=== PATIENT | female | born 1940 | race Two or more races ===

== ENCOUNTER 2020-06-07 12:47 | Inpatient (IN) | payer OTHER ==
[~2020-06-07] VITALS: Ht 162.6 cm; Wt 83.9 kg
[~2020-06-07 12:47] MED LIST: dexAMETHasone 10mg/ml Inj IV ONE
[2020-06-07] MEDS ORDERED: GLIPIZIDE5 MG ORAL (12:49)
[2020-06-07] MEDS ORDERED: AMLODIPINE BESYL5 MG ORAL (12:49)
[2020-06-07] MEDS ORDERED: ATORVASTATIN CA40 MG ORAL (12:49)
[2020-06-07] MEDS ORDERED: OMEPRAZOLE40 M1 ORAL (12:49)
[2020-06-07] MEDS ORDERED: STEGLATRO PO (12:49)
[2020-06-07] MEDS ORDERED: METFORMIN HCL500 M1 ORAL (12:49)
[2020-06-07] MEDS ORDERED: FOSAMAX70 MG ORAL (12:49)
[2020-06-07 12:50] VITALS: BP 141/75
[2020-06-07] MEDS ORDERED: LISINOPRIL20 MG ORAL (12:51)
[2020-06-07] MEDS ORDERED: dexAMETHasone 10mg/ml Inj IV ONE (12:51)
[2020-06-07] MEDS ORDERED: CLOTRIMAZOLE15 GM TOPIC (12:51)
[2020-06-07] MEDS ORDERED: VITAMIN D325 MC1 PO (12:51)
[2020-06-07] MEDS ORDERED: CALCIUM500 M2 PO (12:51)
--- NOTE | 2020-06-07 12:55 | Emergency Room Report ---
History of Present Illness General Chief Complaint: Dyspnea/Respdistress Source: Patient, EMS (Socorro Marroquin M.D.) Present Illness HPI Patient is a 79-year-old female past medical history of diabetes, hypertension and recent diagnosis of COVID-19 1 week ago who presents to the ER complaining of shortness of breath. Patient states that she has been sick for 11 days. She complains of generalized body aches and weakness. She complains of chest pain, cough and shortness of breath. She denies any abdominal pain. Patient denies any history of smoking. Patient was brought in by EMS from home. They state that her oxygen saturation was in the 50s when they arrived. They placed on a nonrebreather. (Socorro Marroquin M.D.) Allergies: Coded Allergies: No Known Allergies (Unverified , 06/07/20) COVID-19 Screening Contact w/high risk pt: No Experienced COVID-19 symptoms?: No COVID-19 Testing performed PUBLIC WELFARE DIRECTOR: No (Socorro Marroquin M.D.) Patient History Reviewed Nursing Documentation: PMH: Agreed; PSxH: Agreed (Socorro Marroquin M.D.) Nursing Documentation-PMH Past Medical History: No History, Except For Hx Hypertension: Yes Hx Diabetes: Yes (Socorro Marroquin M.D.) Review of Systems All Other Systems: negative except mentioned in HPI (Socorro Marroquin M.D.) Physical Exam Vital Signs Date Time Temp Pulse Resp B/P (MAP) Pulse Ox O2 Delivery O2 Flow Rate FiO2 06/07/20 12:35 98.8 89 20 135/66 (89) 97 Non-Rebreather 15.0 Sp02 EP Interpretation: reviewed, abnormal - Hypoxic General Appearance: alert, GCS 15, non-toxic, moderate distress Head: normocephalic, atraumatic Eyes: bilateral eye normal inspection, bilateral eye PERRL ENT: hearing grossly normal, normal pharynx, no angioedema, normal voice Neck: full range of motion, supple/symm/no masses Respiratory: respiratory distress, rhonchi, other - Tachypneic Cardiovascular #1: regular rate, rhythm Gastrointestinal: non tender, soft, no guarding, no rebound Rectal: deferred Musculoskeletal: normal range of motion 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 Due to a high probability of clinically significant, life threatening deterioration, the patient required my highest level of preparedness to intervene emergently and I personally spent this critical care time directly and personally managing the patient. This critical care time included obtaining a history; examining the patient; pulse oximetry; ordering and review of studies; arranging urgent treatment with development of a management plan; evaluation of patient's response to treatment; frequent reassessment; and, discussions with other providers.This critical care time was performed to assess and manage the high probability of imminent, life- threatening deterioration that could result in multi-organ failure. It was exclusive of separately billable procedures and treating other patients and teaching time. Please see MDM section and the rest of the note for further information on patient assessment and treatment. (Socorro Marroquin M.D.) Medical Decision Making Diagnostic Impression: Primary Impression: Acute respiratory disease due to COVID-19 virus Additional Impressions: Renal failure Hypocalcemia Hyperkalemia Pneumonia ER Course Patient presents with respiratory failure. Pt placed on bipap. Patient given decadron 10mg IV and nebulizer treatment. Pt given cefepime and azithromycin IV. Blood cultures have been drawn. Patient is COVID-19 positive. Patient is hypokalemic and hypocalcemic. Medications for hyperkalemia have been ordered which include sodium bicarbonate, insulin and dextrose, Lasix and Kayexalate. Patient already received albuterol with her inline nebulizer. Patient given 1 g of IV calcium gluconate. Due to patient's elevated D-dimer and acute renal insufficiency patient started on heparin prophylactically. Patient will be admitted for further treatment and evaluation. Labs Test 06/07/20 22:30 06/08/20 04:54 06/08/20 07:46 06/08/20 08:15 Arterial Blood pH 7.365 (7.350-7.450) 7.416 (7.350-7.450) Arterial Blood Partial Pressure CO2 32.8 mmHg (35.0-45.0) 32.8 mmHg (35.0-45.0) Arterial Blood Partial Pressure O2 88.2 mmHg (75.0-100.0) 71.8 mmHg (75.0-100.0) Arterial Blood HCO3 18.3 mmol/L (22.0-26.0) 20.6 mmol/L (22.0-26.0) Arterial Blood Oxygen Saturation 96.5 % (95-100) 94.6 % (95-100) Arterial Blood Base Excess -6.1 (-2-2) -3.2 (-2-2) Gunnar Test Positive Positive White Blood Count 8.0 K/UL (4.8-10.8) Red Blood Count 3.77 M/UL (4.20-5.40) Hemoglobin 11.1 G/DL (12.0-16.0) Hematocrit 32.3 % (37.0-47.0) Mean Corpuscular Volume 86 FL (80-99) Mean Corpuscular Hemoglobin 29.3 PG (27.0-31.0) Mean Corpuscular Hemoglobin Concent 34.3 G/DL (32.0-36.0) Red Cell Distribution Width 15.3 % (11.6-14.8) Platelet Count 355 K/UL (150-450) Mean Platelet Volume 5.3 FL (6.5-10.1) Neutrophils (%) (Auto) % (45.0-75.0) Lymphocytes (%) (Auto) % (20.0-45.0) Monocytes (%) (Auto) % (1.0-10.0) Eosinophils (%) (Auto) % (0.0-3.0) Basophils (%) (Auto) % (0.0-2.0) Differential Total Cells Counted 100 Neutrophils % (Manual) 89 % (45-75) Lymphocytes % (Manual) 7 % (20-45) Monocytes % (Manual) 4 % (1-10) Eosinophils % (Manual) 0 % (0-3) Basophils % (Manual) 0 % (0-2) Band Neutrophils 0 % (0-8) Platelet Estimate Adequate Platelet Morphology Normal Anisocytosis 1+ Sodium Level 133 MMOL/L (136-145) Potassium Level 5.0 MMOL/L (3.5-5.1) Chloride Level 101 MMOL/L (98-107) Carbon Dioxide Level 23 MMOL/L (21-32) Blood Urea Nitrogen 35 mg/dL (7-18) Creatinine 1.4 MG/DL (0.55-1.30) Estimat Glomerular Filtration Rate 36.3 mL/min (>60) Glucose Level 335 MG/DL (74-106) Hemoglobin A1c 8.1 % (4.3-6.0) Lactic Acid Level 1.10 mmol/L (0.4-2.0) Uric Acid 8.5 MG/DL (2.6-7.2) Calcium Level 7.2 MG/DL (8.5-10.1) Phosphorus Level 3.4 MG/DL (2.5-4.9) Magnesium Level 1.8 MG/DL (1.8-2.4) Total Bilirubin 0.3 MG/DL (0.2-1.0) Gamma Glutamyl Transpeptidase 52 U/L (5-85) Aspartate Amino Transf (AST/SGOT) 26 U/L (15-37) Alanine Aminotransferase (ALT/SGPT) 15 U/L (12-78) Alkaline Phosphatase 76 U/L (46-116) Lactate Dehydrogenase 343 U/L (81-234) C-Reactive Protein, Quantitative 25.0 mg/dL (0.00-0.90) Pro-B-Type Natriuretic Peptide 6761 pg/mL (0-125) Total Protein 6.4 G/DL (6.4-8.2) Albumin 1.8 G/DL (3.4-5.0) Globulin 4.6 g/dL Albumin/Globulin Ratio 0.4 (1.0-2.7) Triglycerides Level 161 MG/DL (30-150) Cholesterol Level 142 MG/DL (< 200) LDL Cholesterol 89 mg/dL (<100) HDL Cholesterol 19 MG/DL (40-60) Cholesterol/HDL Ratio 7.5 (3.3-4.4) Thyroid Stimulating Hormone (TSH) 0.332 uiU/mL (0.358-3.740) Activated Partial Thromboplast Time 69 SEC (23-33) Test 06/08/20 15:58 06/09/20 04:23 06/09/20 12:20 06/10/20 04:10 Arterial Blood pH 7.482 (7.350-7.450) Arterial Blood Partial Pressure CO2 25.3 mmHg (35.0-45.0) Arterial Blood Partial Pressure O2 74.8 mmHg (75.0-100.0) Arterial Blood HCO3 18.5 mmol/L (22.0-26.0) Arterial Blood Oxygen Saturation 95.4 % (95-100) Arterial Blood Base Excess -3.6 (-2-2) Gunnar Test Positive White Blood Count 12.6 K/UL (4.8-10.8) 12.8 K/UL (4.8-10.8) Red Blood Count 3.87 M/UL (4.20-5.40) 3.85 M/UL (4.20-5.40) Hemoglobin 11.6 G/DL (12.0-16.0) 11.3 G/DL (12.0-16.0) Hematocrit 34.6 % (37.0-47.0) 32.2 % (37.0-47.0) Mean Corpuscular Volume 89 FL (80-99) 84 FL (80-99) Mean Corpuscular Hemoglobin 30.0 PG (27.0-31.0) 29.3 PG (27.0-31.0) Mean Corpuscular Hemoglobin Concent 33.5 G/DL (32.0-36.0) 35.0 G/DL (32.0-36.0) Red Cell Distribution Width 14.9 % (11.6-14.8) 15.3 % (11.6-14.8) Platelet Count 485 K/UL (150-450) 524 K/UL (150-450) Mean Platelet Volume 4.8 FL (6.5-10.1) 4.8 FL (6.5-10.1) Neutrophils (%) (Auto) % (45.0-75.0) % (45.0-75.0) Lymphocytes (%) (Auto) % (20.0-45.0) % (20.0-45.0) Monocytes (%) (Auto) % (1.0-10.0) % (1.0-10.0) Eosinophils (%) (Auto) % (0.0-3.0) % (0.0-3.0) Basophils (%) (Auto) % (0.0-2.0) % (0.0-2.0) Differential Total Cells Counted 100 Neutrophils % (Manual) 87 % (45-75) Lymphocytes % (Manual) 6 % (20-45) Monocytes % (Manual) 7 % (1-10) Eosinophils % (Manual) 0 % (0-3) Basophils % (Manual) 0 % (0-2) Band Neutrophils 0 % (0-8) Platelet Estimate Adequate Platelet Morphology Normal Anisocytosis 1+ Activated Partial Thromboplast Time 56 SEC (23-33) 85 SEC (23-33) 85 SEC (23-33) Sodium Level 136 MMOL/L (136-145) 136 MMOL/L (136-145) Potassium Level 4.5 MMOL/L (3.5-5.1) 3.7 MMOL/L (3.5-5.1) Chloride Level 105 MMOL/L (98-107) 103 MMOL/L (98-107) Carbon Dioxide Level 22 MMOL/L (21-32) 22 MMOL/L (21-32) Anion Gap 10 mmol/L (5-15) Blood Urea Nitrogen 23 mg/dL (7-18) 21 mg/dL (7-18) Creatinine 0.9 MG/DL (0.55-1.30) 0.8 MG/DL (0.55-1.30) Estimat Glomerular Filtration Rate > 60 mL/min (>60) > 60 mL/min (>60) Glucose Level 299 MG/DL (74-106) 235 MG/DL (74-106) Calcium Level 7.3 MG/DL (8.5-10.1) 7.1 MG/DL (8.5-10.1) Total Bilirubin 0.3 MG/DL (0.2-1.0) 0.3 MG/DL (0.2-1.0) Aspartate Amino Transf (AST/SGOT) 28 U/L (15-37) 26 U/L (15-37) Alanine Aminotransferase (ALT/SGPT) 20 U/L (12-78) 27 U/L (12-78) Alkaline Phosphatase 75 U/L (46-116) 79 U/L (46-116) Total Protein 6.6 G/DL (6.4-8.2) 6.5 G/DL (6.4-8.2) Albumin 1.8 G/DL (3.4-5.0) 1.9 G/DL (3.4-5.0) Globulin 4.8 g/dL 4.6 g/dL Albumin/Globulin Ratio 0.4 (1.0-2.7) 0.4 (1.0-2.7) Phosphorus Level 2.1 MG/DL (2.5-4.9) Magnesium Level 1.7 MG/DL (1.8-2.4) Direct Bilirubin 0.1 MG/DL (0.0-0.3) Test 06/10/20 13:44 Arterial Blood pH 7.451 (7.350-7.450) Arterial Blood Partial Pressure CO2 30.3 mmHg (35.0-45.0) Arterial Blood Partial Pressure O2 90.9 mmHg (75.0-100.0) Arterial Blood HCO3 20.6 mmol/L (22.0-26.0) Arterial Blood Oxygen Saturation 96.8 % (95-100) Arterial Blood Base Excess -2.5 (-2-2) Gunnar Test Positive (Socorro Marroquin M.D.) ER Course Patient was admitted to Dr Yuen for acute hypoxemic respiratory failure 2/2 COVID pneumonia by previous ER MD Dr Marroquin. Patient is unstable for transfer as she is on BiPAP FiO2 100%. Spoke with Dr Cuenca who authorizes inpatient ICU admission here at [facility]. (Faye Rashid D.O.) Rhythm Strip Diag. Results Rhythm Strip Time: 13:01 EP Interpretation: yes - Socorro Marroquin MD Rate: 86 bpm Rhythm: NSR, no PVC's, no ectopy (Socorro Marroquin M.D.) Chest X-Ray Diagnostic Results Chest X-Ray Diagnostic Results : Chest X-Ray Ordered: Yes # of Views/Limited/Complete: 1 View Indication: Shortness of Breath EP Interpretation: Yes Interpretation: no effusion, no pneumothorax, other - Bilateral patchy infiltrates Impression: Other - Pneumonia Electronically Signed by: Socorro Marroquin MD (Socorro Marroquin M.D.) Last Vital Signs Date Time Temp Pulse Resp B/P (MAP) Pulse Ox O2 Delivery O2 Flow Rate FiO2 06/07/20 12:35 98.8 89 20 135/66 (89) 97 Non-Rebreather 15.0 (Socorro Marroquin M.D.) Disposition: ADMITTED INPATIENT - ICU Condition: Critical Physician Consult: Dr. Yuen (Socorro Marroquin M.D.) Additional Instructions: Please note that this report is being documented using [employer] technology. This can lead to erroneous entry secondary to incorrect interpretation by the dictating instrument. Socorro Marroquin M.D. Jun 07, 2020 12:55 Faye Rashid D.O. Jun 07, 2020 14:58
--- NOTE | 2020-06-07 13:00 | NUR ---
ED Nurse Note: brought in by ra 61 from home c/o resp distress. per ems, pt was satting 50% RA and was placed on 15L NRB. Pt is satting 95% on NRB 15L. vss, breathing labored, denies any pain, droplet precaution observed, on monitor, on gown.
[2020-06-07] MEDS ORDERED: Albuterol/Ipratropium 3ml neb ONE (13:05)
--- NOTE | 2020-06-07 13:10 | NUR ---
ED Nurse Note: blood, covid swab, flu swab collected and sent to lab. pt unable to provide urine at this time. will attempt at a later time. rt at bedside for abg
[2020-06-07] MEDS: Albuterol/Ipratropium 3ml neb HHN SCH ×2 (13:14→13:15)
--- NOTE | 2020-06-07 13:14 | NUR ---
RESPIRATORY NOTES PT placed on bipap - /, 100% PT's current SaO2 - 96%. 3 doses of Duoneb to follow. ANAYELI Skinner aware. Will continue to monitor.
[2020-06-07 13:17] LABS: HEMOGLOBIN 12.4 G/DL (12.0-16.0); MEAN CORPUSCULAR VOLUME 87 FL (80-99); PLATELET COUNT 317 K/UL (150-450); RED BLOOD COUNT 4.23 M/UL (4.20-5.40); WHITE BLOOD COUNT 10.7 K/UL (4.8-10.8)
--- NOTE | 2020-06-07 13:27 | NUR ---
ED Nurse Note: x-ray at bedside.
[2020-06-07 13:42] LABS: ALANINE AMINOTRANSFERASE 13 U/L (12-78); ALBUMIN/GLOBULIN RATIO 0.4 (1.0-2.7); ALKALINE PHOSPHATASE 77 U/L (46-116); ASPARTATE AMINO TRANSFERASE 37 U/L (15-37); BILIRUBIN,TOTAL 0.3 MG/DL (0.2-1.0); BLOOD UREA NITROGEN 36 mg/dL (7-18); CALCIUM 7.8 MG/DL (8.5-10.1); CARBON DIOXIDE 21 MMOL/L (21-32); CHLORIDE 97 MMOL/L (98-107); CREATINE KINASE 46 U/L (26-308); CREATININE 1.9 MG/DL (0.55-1.30); POTASSIUM 5.9 MMOL/L (3.5-5.1); SODIUM 128 MMOL/L (136-145)
[2020-06-07] MEDS ORDERED: Insulin Human Regular 100units/ml 3ml IV ONE (13:45)
[2020-06-07] MEDS ORDERED: Azithromycin 500 MG in NS 275 ML IV ONE (13:45)
[2020-06-07] MEDS ORDERED: Sodium Bicarbonate 50ml Carp IV ONE (13:45)
[2020-06-07] MEDS ORDERED: Sodium Polystyrene Sulfonate 15gm Powder ORAL ONE (13:45)
[2020-06-07] MEDS ORDERED: Cefepime HCl 2 GM in D5W 55 ML IVPB ONE (13:45)
[2020-06-07 14:05] LABS: APPEARANCE,URINE CLEAR; BILIRUBIN, URINE NEGATIVE (NEGATIVE); GLUCOSE, URINE (UA) NEGATIVE (NEGATIVE); KETONES,URINE NEGATIVE (NEGATIVE); LEUKOCYTE ESTERASE ,URINE NEGATIVE (NEGATIVE); NITRITE,URINE NEGATIVE (NEGATIVE); PH,URINE 5 (4.5-8.0); PROTEIN,URINE 2+ (NEGATIVE); UROBILINOGEN,URINE NORMAL MG/DL (0.0-1.0)
[2020-06-07] MEDS ORDERED: Heparin 5000 units/ml inj IV ONE (14:15)
[2020-06-07 14:19] LABS: COLOR,URINE YELLOW
--- NOTE | 2020-06-07 14:25 | NUR ---
ED Nurse Note: griggs placed per ermd order. line patent and draining.
--- NOTE | 2020-06-07 14:30 | NUR ---
ED Nurse Note: urine collected and sent to lab
--- NOTE | 2020-06-07 14:45 | Consultation ---
Consult Note Consult Note I am asked to evaluate the patient at the request of Dr. Yuen for renal failure and electrolyte imbalances Patient seen in room 7 emergency room Discussed with RN Labs reviewed Full note to follow Patient currently on nonrebreather mask Chief Complaint: Dyspnea/Resp distress Patient is a 79-year-old female past medical history of diabetes, hypertension and recent diagnosis of COVID-19 1 week ago who presents to the ER complaining of shortness of breath. Patient states that she has been sick for 11 days. She complains of generalized body aches and weakness. She complains of chest pain, cough and shortness of breath. She denies any abdominal pain. Patient denies any history of smoking. Patient was brought in by EMS from home. They state that her oxygen saturation was in the 50s when they arrived. They placed on a nonrebreather. Allergies: No Known Allergies (Unverified , 06/07/20) COVID-19 Screening Contact w/high risk pt: No Experienced COVID-19 symptoms?: No COVID-19 Testing performed [employer] [employer] [employer]: No Past Medical History: No History, Except For Hx Hypertension: Yes Hx Diabetes: Yes Vital Signs Date Time Temp Pulse Resp B/P (MAP) Pulse Ox O2 Delivery O2 Flow Rate FiO2 06/07/20 12:35 98.8 89 20 135/66 (89) 97 Non-Rebreather 15.0 PHYSICAL EXAMINATION: GENERAL: A 79-year-old female. HEENT: Unremarkable. LUNGS: Clear breath sounds. ABDOMEN: Soft. EXTREMITIES: There is no edema. VITAL SIGNS: Blood pressure is 140/70, heart rate is 95, respirations 18, O2 sat at this time 95% on BiPAP. LABORATORY DATA: Lab testing shows normal CBC and BMP with the exception of sodium 128, potassium 5.9, creatinine 1.9. LDH 525. CRP 33. Coags show D-dimer of 2.24. ABG 7.36, pCO2 32, pO2 72. Urinalysis negative. . Assessment/Plan Renal failure most likely acute on chronic Hyperkalemia, hyponatremia Diabetes mellitus, hyperglycemia History of hypertension Covid infection Suggestions: Flores catheter Slow hydration Urine studies Avoid nephrotoxic's Pulmonary support 2D echo Kidney ultrasound Per orders Josafat Marquez MD Jun 07, 2020 14:45
[2020-06-07] MEDS: Heparin 25,000u/D5W 500ml 500 ML IV SCH (15:01)
[2020-06-07 15:03] VITALS: BP 117/84
[2020-06-07] MEDS ORDERED: Miralax 17gm pkt ORAL PRN (15:15)
[2020-06-07] MEDS ORDERED: Albuterol/Ipratropium 3ml neb HHN PRN (15:15)
--- NOTE | 2020-06-07 15:34 | History and Physical ---
History of Present Illness General Date patient seen: Jun 07, 2020 Time patient seen: 13:00 Reason for Hospitalization: Dyspnea/Respdistress Present Illness HPI 79-year-old female past medical history of diabetes, hypertension and recent diagnosis of COVID-19 approximatly 1 week ago who presents to the ER complaining of shortness of breath. Patient states that she has been sick for 11 days. She complains of generalized body aches and weakness. She complains of chest pain, cough and shortness of breath. She denies any abdominal pain. Patient denies any history of smoking. Patient was brought in by EMS from [facility] and her oxygen saturation was in the 50s when they arrived. They placed on a nonrebreather with improvement in her oxygenation. She had to be placed on Bipap for respiratory support and admission is requested. She was found to be in renal failure and hyperkalemia. Insulin, bicarb, kayexalate started in ER. Allergies: Coded Allergies: No Known Allergies (Unverified , 06/07/20) COVID-19 Screening Contact w/high risk pt: No Experienced COVID-19 symptoms?: No Medication History Scheduled Alendronate Sodium* (Fosamax*), 70 MG ORAL ONCE A WEEK, (Reported) Amlodipine Besylate* (Amlodipine Besylate*), 5 MG ORAL DAILY, (Reported) Atorvastatin Calcium* (Atorvastatin Calcium*), 40 MG ORAL BEDTIME, (Reported) Cholecalciferol (Vitamin D3) (Vitamin D3*), 25 MCG PO DAILY, (Reported) Clotrimazole* (Lotrimin*), 1 APPLIC TOPIC TWICE A DAY, (Reported) Glipizide* (Glipizide*), 10 MG ORAL BIDAC, (Reported) Lisinopril (Lisinopril*), 40 MG ORAL DAILY, (Reported) Metformin Hcl* (Metformin Hcl*), 1,000 MG ORAL TWICE A DAY, (Reported) Omeprazole (Omeprazole), 40 MG ORAL DAILY, (Reported) Miscellaneous Medications Calcium Carbonate (Calcium), 500 MG PO, (Reported) [Steglatro], 5 MG, (Reported) Patient History Healthcare decision maker Resuscitation status Advanced Directive on File Review of Systems All Other Systems: negative except mentioned in HPI Physical Exam General Appearance: WD/WN, moderate distress Lines, tubes and drains: peripheral HEENT: normocephalic, atraumatic Neck: non-tender, normal alignment Respiratory/Chest: respiratory distress, decreased breath sounds Cardiovascular/Chest: normal rate Abdomen: normal bowel sounds, non tender Extremities: normal range of motion Skin Exam: normal pigmentation 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 Last 24 Hour Vital Signs Date Time Temp Pulse Resp B/P (MAP) Pulse Ox O2 Delivery O2 Flow Rate FiO2 06/07/20 15:03 92 37 117/84 94 Bi-pap 06/07/20 12:50 98.6 95 30 141/75 95 Non-Rebreather 15.0 06/07/20 12:50 96 30 Non-Rebreather 15.0 95 06/07/20 12:35 98.8 89 20 135/66 (89) 97 Non-Rebreather 15.0 Laboratory Tests Test 06/07/20 12:42 06/07/20 13:00 06/07/20 13:50 06/07/20 15:00 Arterial Blood pH 7.365 (7.350-7.450) Arterial Blood Partial Pressure CO2 32.3 mmHg (35.0-45.0) L Arterial Blood Partial Pressure O2 72.0 mmHg (75.0-100.0) L Arterial Blood HCO3 18.0 mmol/L (22.0-26.0) L Arterial Blood Oxygen Saturation 93.7 % (95-100) L Arterial Blood Base Excess -6.3 (-2-2) L Gunnar Test Positive White Blood Count 10.7 K/UL (4.8-10.8) Red Blood Count 4.23 M/UL (4.20-5.40) Hemoglobin 12.4 G/DL (12.0-16.0) Hematocrit 37.0 % (37.0-47.0) Mean Corpuscular Volume 87 FL (80-99) Mean Corpuscular Hemoglobin 29.4 PG (27.0-31.0) Mean Corpuscular Hemoglobin Concent 33.6 G/DL (32.0-36.0) Red Cell Distribution Width 15.0 % (11.6-14.8) H Platelet Count 317 K/UL (150-450) Mean Platelet Volume 5.3 FL (6.5-10.1) L Neutrophils (%) (Auto) % (45.0-75.0) Lymphocytes (%) (Auto) % (20.0-45.0) Monocytes (%) (Auto) % (1.0-10.0) Eosinophils (%) (Auto) % (0.0-3.0) Basophils (%) (Auto) % (0.0-2.0) Differential Total Cells Counted 100 Neutrophils % (Manual) 82 % (45-75) H Lymphocytes % (Manual) 16 % (20-45) L Monocytes % (Manual) 2 % (1-10) Eosinophils % (Manual) 0 % (0-3) Basophils % (Manual) 0 % (0-2) Band Neutrophils 0 % (0-8) Platelet Estimate Adequate Platelet Morphology Normal Hypochromasia 1+ Anisocytosis 1+ Prothrombin Time 11.1 SEC (9.30-11.50) Prothromb Time International Ratio 1.0 (0.9-1.1) Activated Partial Thromboplast Time 26 SEC (23-33) D-Dimer 2.45 mg/L FEU (0.00-0.49) H Sodium Level 128 MMOL/L (136-145) L Potassium Level 5.9 MMOL/L (3.5-5.1) H Chloride Level 97 MMOL/L (98-107) L Carbon Dioxide Level 21 MMOL/L (21-32) Blood Urea Nitrogen 36 mg/dL (7-18) H Creatinine 1.9 MG/DL (0.55-1.30) H Estimat Glomerular Filtration Rate 25.5 mL/min (>60) Glucose Level 217 MG/DL (74-106) H Lactic Acid Level 1.70 mmol/L (0.4-2.0) Calcium Level 7.8 MG/DL (8.5-10.1) L Magnesium Level 1.9 MG/DL (1.8-2.4) Ferritin 304 NG/ML (8-388) Total Bilirubin 0.3 MG/DL (0.2-1.0) Aspartate Amino Transf (AST/SGOT) 37 U/L (15-37) Alanine Aminotransferase (ALT/SGPT) 13 U/L (12-78) Alkaline Phosphatase 77 U/L (46-116) Lactate Dehydrogenase 525 U/L (81-234) H Total Creatine Kinase 46 U/L (26-308) Troponin I 0.000 ng/mL (0.000-0.056) C-Reactive Protein, Quantitative 33.8 mg/dL (0.00-0.90) H Pro-B-Type Natriuretic Peptide 4471 pg/mL (0-125) H Total Protein 6.7 G/DL (6.4-8.2) Albumin 2.0 G/DL (3.4-5.0) L Globulin 4.7 g/dL Albumin/Globulin Ratio 0.4 (1.0-2.7) L Urine Color Yellow Urine Appearance Clear Urine pH 5 (4.5-8.0) Urine Specific [place] 1.015 (1.005-1.035) Urine Protein 2+ (NEGATIVE) H Urine Glucose (UA) Negative (NEGATIVE) Urine Ketones Negative (NEGATIVE) Urine Blood Negative (NEGATIVE) Urine Nitrite Negative (NEGATIVE) Urine Bilirubin Negative (NEGATIVE) Urine Urobilinogen Normal MG/DL (0.0-1.0) Urine Leukocyte Esterase Negative (NEGATIVE) Urine RBC 0 /HPF (0 - 2) Urine WBC 2-4 /HPF (0 - 2) Urine Squamous Epithelial Cells Few /LPF (NONE/OCC) Urine Bacteria Few /HPF (NONE) Urine Random Sodium Pending Microbiology Date/Time Source Procedure Growth Status 06/07/20 13:00 Nasopharynx SARS-CoV-2 RdRp Gene Assay - Final Complete 06/07/20 13:00 Nasal Nares - Final Complete 06/07/20 13:00 Nasal Nares - Final Complete Height (Feet): 5 Height (Inches): 5.00 Weight (Pounds): 185 Medications Current Medications Medications (Trade) Dose Ordered Sig/Vicki Route PRN Reason Start Time Stop Time Status Last Admin Dose Admin Acetaminophen (Tylenol) 650 mg Q4H PRN ORAL Mild Pain (Pain Scale 1-3) 06/07/20 15:15 07/07/20 15:14 UNV Acetaminophen (Tylenol) 650 mg Q4H PRN ORAL Temp >100.5 06/07/20 15:15 07/07/20 15:14 UNV Albuterol/ Ipratropium (Albuterol/ Ipratropium) 3 ml EVERY 6 HOURS PRN HHN Shortness of Breath 06/07/20 15:15 06/12/20 15:14 UNV Albuterol/ Ipratropium (Albuterol/ Ipratropium) 3 ml Q15M HHN 06/07/20 12:45 06/12/20 12:44 06/07/20 13:15 Amlodipine Besylate (Norvasc) 5 mg DAILY ORAL 06/08/20 09:00 07/08/20 08:59 UNV Atorvastatin Calcium (Lipitor) 40 mg BEDTIME ORAL 06/07/20 21:00 09/05/20 20:59 UNV Azithromycin 250 mg/Sodium Chloride 275 ml @ 275 mls/hr DAILY IV 06/08/20 09:00 06/12/20 15:15 UNV Calcium Carbonate (Os-Javier) 500 mg BID ORAL 06/07/20 18:00 09/05/20 17:59 UNV Cefepime HCl 2 gm/ Dextrose 110 ml @ 220 mls/hr EVERY 12 HOURS IV 06/07/20 21:00 06/14/20 20:59 UNV Dexamethasone Sodium Phosphate (Decadron 10mg/ ml Inj) 6 mg DAILY IV 06/08/20 09:00 06/16/20 09:00 UNV Dextrose (Dextrose 50%) 25 ml Q30M PRN IV Hypoglycemia 06/07/20 15:15 09/05/20 15:14 UNV Dextrose (Dextrose 50%) 25 ml Q30M PRN IV Hypoglycemia 06/07/20 15:15 09/05/20 15:14 UNV Dextrose (Dextrose 50%) 50 ml Q30M PRN IV Hypoglycemia 06/07/20 15:15 09/05/20 15:14 UNV Dextrose (Dextrose 50%) 50 ml Q30M PRN IV Hypoglycemia 06/07/20 15:15 09/05/20 15:14 UNV Docusate Sodium (Colace) 100 mg EVERY 12 HOURS ORAL 06/07/20 21:00 07/07/20 20:59 UNV Heparin Sodium/ Dextrose 500 ml @ 20.14 mls/ hr ADJUST PER PROTOCOL IV 06/07/20 14:15 07/07/20 14:14 06/07/20 15:01 Lorazepam (Ativan 2mg/ml 1ml) 0.5 mg Q4H PRN IV For Anxiety 06/07/20 15:15 06/14/20 15:14 UNV Morphine Sulfate (Morphine Sulfate) 2 mg EVERY 4 HOURS PRN IVP Moderate Pain (Pain Scale 4-6) 06/07/20 15:15 06/14/20 15:14 UNV Ondansetron HCl (Zofran) 4 mg Q6H PRN IVP Nausea & Vomiting 06/07/20 15:15 07/07/20 15:14 UNV Pantoprazole (Protonix) 40 mg EVERY 12 HOURS IVP 06/07/20 21:00 07/07/20 20:59 Polyethylene Glycol (Miralax) 17 gm DAILYPRN PRN ORAL Constipation 06/07/20 15:15 07/07/20 15:14 UNV Sodium Chloride 1,000 ml @ 75 mls/hr [id number] IV 06/07/20 15:00 07/07/20 14:59 06/07/20 15:02 Temazepam (Restoril) 15 mg HSPRN PRN ORAL Insomnia 06/07/20 15:15 06/14/20 15:14 UNV Assessment/Plan Status: not improved Assessment/Plan: 79-year-old female past medical history of diabetes, hypertension and recent diagnosis of COVID-19 1 week ago admitted to the Hospital with: # Acute hypoxemic respiratory failure due to Co -SARS 2 ( Covid 19 ) pneumonia Respiratory support started and will continue with Bipap ICU admission due to high risk of decompensation Pulmonary consultation requested Dexamethasone and Heparin gtt started due to High D dimer per protocols for Covid 19 infection Antibiotic therapy ID consultation with Dr. Comer for possible Remdisivir HHN # Renal failure etiology undetermined Renal consult Dr. Rubio Renal US and TTE Renal lytes and IVF per renal team Monitor I/O with Flores Avoid nephrotoxins # Hypertensive heart disease Resume Amlodipine # T2DM Stop Metformin due to hospitaliation ISS Monitor BG # HLD Continue Statin DVT ppx with Heparin GI ppx with PPI Actv as tolerated FULL CODE Kavon Yuen MD Jun 07, 2020 15:34
--- NOTE | 2020-06-07 16:23 | Consultation ---
History of Present Illness General Date patient seen: Jun 07, 2020 Chief Complaint: Dyspnea/Respdistress Present Illness HPI 79 y/o F with hx of obesity, Dm2, HTN, recent Dx of COVID19 (1 week ago) presented to ED on 06/07 with SOB, generalized body aches, chest pain, cough and weakness. Per EMS, patient had O2 sat 50s when they arrived and was placed on NRB. Denied abd pain. Allergies: Coded Allergies: No Known Allergies (Unverified , 06/07/20) Medication History Scheduled Alendronate Sodium* (Fosamax*), 70 MG ORAL ONCE A WEEK, (Reported) Amlodipine Besylate* (Amlodipine Besylate*), 5 MG ORAL DAILY, (Reported) Atorvastatin Calcium* (Atorvastatin Calcium*), 40 MG ORAL BEDTIME, (Reported) Cholecalciferol (Vitamin D3) (Vitamin D3*), 25 MCG PO DAILY, (Reported) Clotrimazole* (Lotrimin*), 1 APPLIC TOPIC TWICE A DAY, (Reported) Glipizide* (Glipizide*), 10 MG ORAL BIDAC, (Reported) Lisinopril (Lisinopril*), 40 MG ORAL DAILY, (Reported) Metformin Hcl* (Metformin Hcl*), 1,000 MG ORAL TWICE A DAY, (Reported) Omeprazole (Omeprazole), 40 MG ORAL DAILY, (Reported) Miscellaneous Medications Calcium Carbonate (Calcium), 500 MG PO, (Reported) [Steglatro], 5 MG, (Reported) Patient History Healthcare decision maker Resuscitation status Advanced Directive on File Patient History Narrative Pmhx: as above Shx: reviewed Fhmx: non contributory Review of Systems All Other Systems: negative except mentioned in HPI Physical Exam Physical Exam Narrative General Appearance: WD/WN, moderate distress Lines, tubes and drains: peripheral HEENT: normocephalic, atraumatic Neck: non-tender, normal alignment Respiratory/Chest: respiratory distress, decreased breath sounds Cardiovascular/Chest: normal rate Abdomen: normal bowel sounds, non tender Extremities: normal range of motion Skin Exam: normal pigmentation 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 Last 24 Hour Vital Signs Date Time Temp Pulse Resp B/P (MAP) Pulse Ox O2 Delivery O2 Flow Rate FiO2 06/07/20 15:03 92 37 117/84 94 Bi-pap 06/07/20 13:44 83 39 96 Bi-Pap 100 88 36 98 100 06/07/20 12:50 98.6 95 30 141/75 95 Non-Rebreather 15.0 06/07/20 12:50 96 30 Non-Rebreather 15.0 95 06/07/20 12:35 98.8 89 20 135/66 (89) 97 Non-Rebreather 15.0 Laboratory Tests Test 06/07/20 12:42 06/07/20 13:00 06/07/20 13:50 06/07/20 15:00 Arterial Blood pH 7.365 (7.350-7.450) Arterial Blood Partial Pressure CO2 32.3 mmHg (35.0-45.0) L Arterial Blood Partial Pressure O2 72.0 mmHg (75.0-100.0) L Arterial Blood HCO3 18.0 mmol/L (22.0-26.0) L Arterial Blood Oxygen Saturation 93.7 % (95-100) L Arterial Blood Base Excess -6.3 (-2-2) L Gunnar Test Positive White Blood Count 10.7 K/UL (4.8-10.8) Red Blood Count 4.23 M/UL (4.20-5.40) Hemoglobin 12.4 G/DL (12.0-16.0) Hematocrit 37.0 % (37.0-47.0) Mean Corpuscular Volume 87 FL (80-99) Mean Corpuscular Hemoglobin 29.4 PG (27.0-31.0) Mean Corpuscular Hemoglobin Concent 33.6 G/DL (32.0-36.0) Red Cell Distribution Width 15.0 % (11.6-14.8) H Platelet Count 317 K/UL (150-450) Mean Platelet Volume 5.3 FL (6.5-10.1) L Neutrophils (%) (Auto) % (45.0-75.0) Lymphocytes (%) (Auto) % (20.0-45.0) Monocytes (%) (Auto) % (1.0-10.0) Eosinophils (%) (Auto) % (0.0-3.0) Basophils (%) (Auto) % (0.0-2.0) Differential Total Cells Counted 100 Neutrophils % (Manual) 82 % (45-75) H Lymphocytes % (Manual) 16 % (20-45) L Monocytes % (Manual) 2 % (1-10) Eosinophils % (Manual) 0 % (0-3) Basophils % (Manual) 0 % (0-2) Band Neutrophils 0 % (0-8) Platelet Estimate Adequate Platelet Morphology Normal Hypochromasia 1+ Anisocytosis 1+ Prothrombin Time 11.1 SEC (9.30-11.50) Prothromb Time International Ratio 1.0 (0.9-1.1) Activated Partial Thromboplast Time 26 SEC (23-33) D-Dimer 2.45 mg/L FEU (0.00-0.49) H Sodium Level 128 MMOL/L (136-145) L Potassium Level 5.9 MMOL/L (3.5-5.1) H Chloride Level 97 MMOL/L (98-107) L Carbon Dioxide Level 21 MMOL/L (21-32) Blood Urea Nitrogen 36 mg/dL (7-18) H Creatinine 1.9 MG/DL (0.55-1.30) H Estimat Glomerular Filtration Rate 25.5 mL/min (>60) Glucose Level 217 MG/DL (74-106) H Lactic Acid Level 1.70 mmol/L (0.4-2.0) Calcium Level 7.8 MG/DL (8.5-10.1) L Magnesium Level 1.9 MG/DL (1.8-2.4) Ferritin 304 NG/ML (8-388) Total Bilirubin 0.3 MG/DL (0.2-1.0) Aspartate Amino Transf (AST/SGOT) 37 U/L (15-37) Alanine Aminotransferase (ALT/SGPT) 13 U/L (12-78) Alkaline Phosphatase 77 U/L (46-116) Lactate Dehydrogenase 525 U/L (81-234) H Total Creatine Kinase 46 U/L (26-308) Troponin I 0.000 ng/mL (0.000-0.056) C-Reactive Protein, Quantitative 33.8 mg/dL (0.00-0.90) H Pro-B-Type Natriuretic Peptide 4471 pg/mL (0-125) H Total Protein 6.7 G/DL (6.4-8.2) Albumin 2.0 G/DL (3.4-5.0) L Globulin 4.7 g/dL Albumin/Globulin Ratio 0.4 (1.0-2.7) L Urine Color Yellow Urine Appearance Clear Urine pH 5 (4.5-8.0) Urine Specific [place] 1.015 (1.005-1.035) Urine Protein 2+ (NEGATIVE) H Urine Glucose (UA) Negative (NEGATIVE) Urine Ketones Negative (NEGATIVE) Urine Blood Negative (NEGATIVE) Urine Nitrite Negative (NEGATIVE) Urine Bilirubin Negative (NEGATIVE) Urine Urobilinogen Normal MG/DL (0.0-1.0) Urine Leukocyte Esterase Negative (NEGATIVE) Urine RBC 0 /HPF (0 - 2) Urine WBC 2-4 /HPF (0 - 2) Urine Squamous Epithelial Cells Few /LPF (NONE/OCC) Urine Bacteria Few /HPF (NONE) Urine Random Sodium 79 mmol/L (20-110) Microbiology Date/Time Source Procedure Growth Status 06/07/20 13:00 Nasopharynx SARS-CoV-2 RdRp Gene Assay - Final Complete 06/07/20 13:00 Nasal Nares - Final Complete 06/07/20 13:00 Nasal Nares - Final Complete Height (Feet): 5 Height (Inches): 5.00 Weight (Pounds): 185 Medications Current Medications Medications (Trade) Dose Ordered Sig/Vicki Route PRN Reason Start Time Stop Time Status Last Admin Dose Admin Acetaminophen (Tylenol) 650 mg Q4H PRN ORAL Mild Pain (Pain Scale 1-3) 06/07/20 15:15 07/07/20 15:14 Acetaminophen (Tylenol) 650 mg Q4H PRN ORAL Temp >100.5 06/07/20 15:15 07/07/20 15:14 Albuterol/ Ipratropium (Albuterol/ Ipratropium) 3 ml Q15M HHN 06/07/20 12:45 06/12/20 12:44 06/07/20 13:15 Albuterol/ Ipratropium (Albuterol/ Ipratropium) 3 ml Q6H PRN HHN Shortness of Breath 06/07/20 15:15 06/12/20 15:14 Amlodipine Besylate (Norvasc) 5 mg DAILY ORAL 06/08/20 09:00 07/08/20 08:59 Atorvastatin Calcium (Lipitor) 40 mg BEDTIME ORAL 06/07/20 21:00 09/05/20 20:59 UNV Azithromycin 250 mg/Sodium Chloride 275 ml @ 275 mls/hr DAILY IV 06/08/20 09:00 06/12/20 15:15 UNV Calcium Carbonate (Os-Javier) 500 mg BID ORAL 06/07/20 18:00 09/05/20 17:59 UNV Cefepime HCl 2 gm/ Dextrose 110 ml @ 220 mls/hr EVERY 12 HOURS IV 06/07/20 21:00 06/14/20 20:59 UNV Dexamethasone Sodium Phosphate (Decadron 10mg/ ml Inj) 6 mg DAILY IV 06/08/20 09:00 06/16/20 09:00 Dextrose (Dextrose 50%) 25 ml Q30M PRN IV Hypoglycemia 06/07/20 15:15 09/05/20 15:14 Dextrose (Dextrose 50%) 25 ml Q30M PRN IV Hypoglycemia 06/07/20 15:15 09/05/20 15:14 Dextrose (Dextrose 50%) 50 ml Q30M PRN IV Hypoglycemia 06/07/20 15:15 09/05/20 15:14 Dextrose (Dextrose 50%) 50 ml Q30M PRN IV Hypoglycemia 06/07/20 15:15 09/05/20 15:14 Docusate Sodium (Colace) 100 mg EVERY 12 HOURS ORAL 06/07/20 21:00 07/07/20 20:59 Heparin Sodium/ Dextrose 500 ml @ 20.14 mls/ hr ADJUST PER PROTOCOL IV 06/07/20 14:15 07/07/20 14:14 06/07/20 15:01 Lorazepam (Ativan 2mg/ml 1ml) 0.5 mg Q4H PRN IV For Anxiety 06/07/20 15:15 06/14/20 15:14 Morphine Sulfate (Morphine Sulfate) 2 mg Q4H PRN IVP Moderate Pain (Pain Scale 4-6) 06/07/20 15:15 06/14/20 15:14 Ondansetron HCl (Zofran) 4 mg Q6H PRN IVP Nausea & Vomiting 06/07/20 15:15 07/07/20 15:14 Pantoprazole (Protonix) 40 mg EVERY 12 HOURS IVP 06/07/20 21:00 07/07/20 20:59 Polyethylene Glycol (Miralax) 17 gm DAILYPRN PRN ORAL Constipation 06/07/20 15:15 07/07/20 15:14 Sodium Chloride 1,000 ml @ 75 mls/hr [id number] IV 06/07/20 15:00 07/07/20 14:59 06/07/20 15:02 Temazepam (Restoril) 15 mg HSPRN PRN ORAL Insomnia 06/07/20 15:15 06/14/20 15:14 UNV Assessment/Plan Assessment/Plan: Abx: Cefepime 06/07- Azithomycin 06/07- Assessment: 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 Will continue to follow along with you. Discussed with Alyssa Macias M.D. Jun 07, 2020 16:23
--- NOTE | 2020-06-07 19:15 | Consultation ---
DATE OF CONSULTATION: 06/07/2020 PULMONARY CONSULTATION HISTORY OF PRESENT ILLNESS: This is a 79-year-old female with history of diabetes mellitus, hypertension, and recent diagnosis of COVID-19 a week ago, who came into the hospital with shortness of breath. She also reports chest pain and hypoxemia. The patient was markedly hypoxic on arrival and was started on a BiPAP machine after quitting nonrebreather mask. Her imaging studies were reviewed, which per initial review showed bilateral opacities. PAST HISTORY: Diabetes mellitus and hypertension. REVIEW OF SYSTEMS: Denies any headaches, hematemesis, melena, hematochezia, or weight loss. SURGERIES: None. PHYSICAL EXAMINATION: GENERAL: A 79-year-old female. HEENT: Unremarkable. LUNGS: Clear breath sounds. ABDOMEN: Soft. EXTREMITIES: There is no edema. VITAL SIGNS: Blood pressure is 140/70, heart rate is 95, respirations 18, O2 sat at this time 95% on BiPAP. LABORATORY DATA: Lab testing shows normal CBC and BMP with the exception of sodium 128, potassium 5.9, creatinine 1.9. LDH 525. CRP 33. Coags show D-dimer of 2.24. ABG 7.36, pCO2 32, pO2 72. Urinalysis negative. IMPRESSION: 1. COVID-19 pneumonia. 2. Hypoxemia. 3. Hypertension. 4. Diabetes mellitus. 5. Respiratory Failure. DISCUSSION: Admit to the hospital. The patient will benefit from steroids and remdesivir . I will defer the initiation of remdesivir to ID specialist. Continue Decadron. Respiratory isolation. Continue BiPAP. I will follow carefully. Follow ABG's. Francis Nolasco M.D. DR: ANISA JOB#: [id number] CC: YARON
--- NOTE | 2020-06-07 19:22 | NUR ---
HAND-OFF: Report given to Jeffrey RN.
--- NOTE | 2020-06-07 19:23 | NUR ---
ED Nurse Note: Report received from DAVID GUADALUPE
--- NOTE | 2020-06-07 20:00 | NUR ---
ED Nurse Note: Repeat PT sent
--- NOTE | 2020-06-07 21:30 | NUR ---
ED Nurse Note: CRE, VRE, MRSA swab sent to lab
--- NOTE | 2020-06-07 21:30 | NUR ---
Note audra in EDM - 06/07/20 at 2334 by [email or web address] ED Nurse Note: CRE, VRE, MRSA swab given
--- NOTE | 2020-06-07 21:45 | NUR ---
NURSE NOTES: Pt is AO x 4 on BiPAP. Covid 19 Positive and Flu Negative. Pt transferred from ER to ICU Bed B. Admitting Dx Respiratory distress and Covid 19 positive. Hx of HTN, DM2, Covid 19 positive (05/27), Kidney disease per EDRN Pt has been Covid 19 positive since 05/27 and got worse. Pt brought in by EMS from home c/o SOB and respiratory distress, 50% RA. Pt is on Bipap, Facial mask settin/5 R16 100% FiO2. Tape in place. Pt is Tachy breathing 45's. Pt. satting 92% on 100%. Admitting MD is Dr. Yuen.
--- NOTE | 2020-06-07 21:50 | NUR ---
TRANSFER TO FLOOR: Patient transferred to ICU at rm 246-B via gurney with secured entrance monitor, accompanied by RN and RT. Belongings checked and given to RN. Patient transferred safely to bed and endorsed to RN.
[2020-06-07 22:00] VITALS: BP 140/71
--- NOTE | 2020-06-07 22:00 | NUR ---
TRANSFER TO FLOOR: Patient transferred with 2RN, 1 tech, and 1 RT to ICU, per Dr. Yuen. Report reveived from ISMAEL Murphy. Belongings were transferd with patient. Safety measures observed and will continue to monitor.
--- NOTE | 2020-06-07 22:07 | NUR ---
RESPIRATORY NOTES: Pt transferred from ER to ICU Bed- B. Pt is on Bipap, Facial mask 10/ R16 100% Fio2. Tape in place. Pt is Tachy breathing 45's. Pt. satting 92% on 100% Fio2. Bipap alarms are on and audible, and Bipap plugged into red outlet. Will continue to monitor.
[2020-06-07] MEDS: Docusate 100mg cap ORAL SCH (22:47)
[2020-06-07] MEDS: Pantoprazole Inj IVP SCH (22:47)
[2020-06-07] MEDS: Os-Cal (Oyster Shell) 500mg tab ORAL SCH (22:47)
[2020-06-07] MEDS: Atorvastatin 20mg tab ORAL SCH (22:47)
[2020-06-07 23:00] VITALS: BP 143/75
[2020-06-07] MEDS: NovoLOG Insulin Flexpen SUBQ SCH (23:37)
[2020-06-08] VITALS (24 sets, daily range): BP systolic 109–143; BP diastolic 57–84
--- NOTE | 2020-06-08 | NUR ---
NURSE NOTES: Pt remains AO x 4 on BiPAP. Covid 19 Positive and Flu Negative. Pt transferred from ER to ICU Bed B. Admitting Dx Respiratory distress and Covid 19 positive. Pt has been Covid 19 positive since 05/27 and got worse. Pt is on Bipap, Facial mask settin/5 R16 100% FiO2. Tape in place. Pt is Tachy breathing 45's. Pt. satting 92% on 100%. IV RH 22G and RAC 22G heparin gtt and NS gtt 275mL/hr are running, CDI. aPTT ordered. Safety measures observed and no acute distress noted. will continue to monitor
--- NOTE | 2020-06-08 02:00 | NUR ---
NURSE NOTES: Am care provided. Soiled gowns, linens, and sliders are changed. Turned and repositioned. Oral care provided.
--- NOTE | 2020-06-08 04:07 | NUR ---
NURSE NOTES: Turned and repositioned. Oral care provided.
[2020-06-08 05:55] LABS: HEMATOCRIT 32.3 % (37.0-47.0); HEMOGLOBIN 11.1 G/DL (12.0-16.0); MEAN CORPUSCULAR VOLUME 86 FL (80-99); PLATELET COUNT 355 K/UL (150-450); RED BLOOD COUNT 3.77 M/UL (4.20-5.40); RED CELL DISTRIBUTION WIDTH 15.3 % (11.6-14.8)
[2020-06-08] MEDS: NovoLOG Insulin Flexpen SUBQ SCH ×4 (06:02→21:28)
[2020-06-08 06:32] LABS: ALANINE AMINOTRANSFERASE 15 U/L (12-78); ALBUMIN 1.8 G/DL (3.4-5.0); ALBUMIN/GLOBULIN RATIO 0.4 (1.0-2.7); ALKALINE PHOSPHATASE 76 U/L (46-116); ASPARTATE AMINO TRANSFERASE 26 U/L (15-37); BILIRUBIN,TOTAL 0.3 MG/DL (0.2-1.0); BLOOD UREA NITROGEN 35 mg/dL (7-18); CALCIUM 7.2 MG/DL (8.5-10.1); CARBON DIOXIDE 23 MMOL/L (21-32); CHLORIDE 101 MMOL/L (98-107); CHOLESTEROL 142 MG/DL (< 200); CREATININE 1.4 MG/DL (0.55-1.30); GAMMA GLUTAMYL TRANSPEPTIDASE 52 U/L (5-85); HDL CHOLESTEROL 19 MG/DL (40-60); LACTATE DEHYDROGENASE 343 U/L (81-234); PHOSPHORUS 3.4 MG/DL (2.5-4.9); SODIUM 133 MMOL/L (136-145); TRIGLYCERIDES 161 MG/DL (30-150)
--- NOTE | 2020-06-08 07:23 | NUR ---
HAND-OFF: Report given to ANAYELI Colby. endorsed POC.
[2020-06-08] MEDS: Docusate 100mg cap ORAL SCH ×2 (08:34→20:57)
[2020-06-08] MEDS: dexAMETHasone 10mg/ml Inj IV SCH (08:34)
[2020-06-08] MEDS: Azithromycin 250 MG in NS 275 ML IV SCH (08:34)
[2020-06-08] MEDS: Os-Cal (Oyster Shell) 500mg tab ORAL SCH ×2 (08:34→18:23)
[2020-06-08] MEDS: Pantoprazole Inj IVP SCH ×2 (08:34→20:57)
--- NOTE | 2020-06-08 09:30 | NUR ---
NURSE NOTES: Dr. Yuen assessing patient at the bedside, updated the patient is awake and talkative but remains on the bipap with settings of 10/5 at fio2 of 100%. she is currently on heparin drip at 20.14 ml/hr at dose of 12units/kg/unit. patient is primarily [place] speaking with no delay or slur noted, she is able to formulate whole sentences without experiencing shortness of breath.
--- NOTE | 2020-06-08 10:45 | NUR ---
NURSE NOTES: Dr. Nolasco has been added to the case by Dr. Yuen. obtained order from Dr. Nolasco to change the patient to 5l/min venti mask and have an abg done within 30min of changing the mask. will inform of patient status after placing her on venti mask.
[2020-06-08] MEDS: Cefepime HCl 2 GM in D5W 110 ML IV SCH (10:51)
--- NOTE | 2020-06-08 10:57 | Diagnostic Imaging Report ---
EXAM: XR Chest, 1 View CLINICAL HISTORY: DYSPNEA TECHNIQUE: Frontal view of the chest. COMPARISON: Chest x-ray dated 06/07/20 FINDINGS: Lungs: No significant interval change in appearance of hazy patchy opacities in bilateral lungs, concerning for pneumonitis. Pleural space: Unremarkable. The costophrenic angle are sharp. No visible pneumothorax. Heart: Borderline enlarged. Mediastinum: Unremarkable. Bones/joints: Mild degenerative changes of the visualized spine. Vasculature: Atherosclerotic calcifications are noted within the aortic arch. Tubes, lines and devices: Telemetry leads overlie the thorax. IMPRESSION: No significant interval change in appearance of hazy patchy opacities in bilateral lungs, concerning for pneumonitis.
--- NOTE | 2020-06-08 11:02 | Nephrology Progress Note ---
Assessment/Plan Problem List: (1) Acute respiratory disease due to COVID-19 virus (2) Renal failure (3) Hyperkalemia (4) COVID-19 (5) Diabetic nephropathy Assessment: 2+ proteinuria (6) Dehydration Assessment Renal failure most likely acute on chronic Hyperkalemia, hyponatremia Diabetes mellitus, hyperglycemia History of hypertension Plan June 08: Patient seen in ICU. Full code. On BiPAP. Has Flores catheter. Labs reviewed. Electrolyte abnormalities improved. Serum creatinine lower. Waiting for 2D echo and kidney ultrasound results. Discussed with RN. June 07: Flores catheter Slow hydration Urine studies Avoid nephrotoxic's Pulmonary support 2D echo Kidney ultrasound Per orders Subjective ROS Limited/Unobtainable: No Constitutional: Reports: malaise, weakness - Inside Objective Objective Last 24 Hour Vital Signs Date Time Temp Pulse Resp B/P (MAP) Pulse Ox O2 Delivery O2 Flow Rate FiO2 06/08/20 09:00 97.6 97 41 133/73 (93) 97 06/08/20 08:35 100 126/71 06/08/20 08:00 94 35 126/71 (89) 97 06/08/20 08:00 Bi-pap 06/08/20 08:00 93 06/08/20 08:00 100 06/08/20 07:12 93 40 98 100 06/08/20 07:00 93 34 131/76 (94) 98 06/08/20 06:00 98.4 104 43 143/80 (101) 99 06/08/20 05:00 87 34 125/79 (94) 98 06/08/20 04:00 Bi-pap 06/08/20 04:00 83 06/08/20 04:00 100 06/08/20 04:00 83 34 124/61 (82) 100 06/08/20 03:00 80 30 109/57 (74) 98 06/08/20 02:35 87 43 99 100 06/08/20 02:00 85 36 112/62 (79) 100 06/08/20 01:00 93 33 124/71 (88) 98 06/08/20 00:00 98.2 90 37 132/69 (90) 100 06/08/20 00:00 Bi-pap 06/08/20 00:00 90 06/07/20 23:00 92 35 143/75 (97) 99 06/07/20 22:46 98 40 92 100 06/07/20 22:04 91 45 92 100 06/07/20 22:00 98.4 92 33 140/71 (94) 98 06/07/20 22:00 100 06/07/20 22:00 Bi-Pap 10.0 06/07/20 21:50 98.7 92 30 137/91 96 Bi-pap 15.0 100 06/07/20 18:48 89 45 93 100 06/07/20 15:03 92 37 117/84 94 Bi-pap 06/07/20 15:01 87 47 95 100 06/07/20 13:44 83 39 96 Bi-Pap 100 88 36 98 100 06/07/20 12:50 98.6 95 30 141/75 95 Non-Rebreather 15.0 06/07/20 12:50 96 30 Non-Rebreather 15.0 95 06/07/20 12:35 98.8 89 20 135/66 (89) 97 Non-Rebreather 15.0 Intake and Output 06/07/20 06/08/20 19:00 07:00 Intake Total 20.14 ml 961.68 ml Output Total 200 ml 2140 ml Balance -179.86 ml -1178.32 ml Intake Oral 0 ml 120 ml IV Total 20.14 ml 841.68 ml Output Urine Total 200 ml 2140 ml Laboratory Tests 06/07/20 12:42: Arterial Blood pH 7.365, Arterial Blood Partial Pressure CO2 32.3L, Arterial Blood Partial Pressure O2 72.0L, Arterial Blood HCO3 18.0L, Arterial Blood Oxygen Saturation 93.7L, Arterial Blood Base Excess -6.3L, Gunnar Test Positive 06/07/20 13:00: White Blood Count 10.7, Red Blood Count 4.23, Hemoglobin 12.4, Hematocrit 37.0, Mean Corpuscular Volume 87, Mean Corpuscular Hemoglobin 29.4, Mean Corpuscular Hemoglobin Concent 33.6, Red Cell Distribution Width 15.0H, Platelet Count 317, Mean Platelet Volume 5.3L, Neutrophils (%) (Auto) , Lymphocytes (%) (Auto) , Monocytes (%) (Auto) , Eosinophils (%) (Auto) , Basophils (%) (Auto) , Differential Total Cells Counted 100, Neutrophils % (Manual) 82H, Lymphocytes % (Manual) 16L, Monocytes % (Manual) 2, Eosinophils % (Manual) 0, Basophils % (Manual) 0, Band Neutrophils 0, Platelet Estimate Adequate, Platelet Morphology Normal, Hypochromasia 1+, Anisocytosis 1+, Prothrombin Time 11.1, Prothromb Time International Ratio 1.0, Activated Partial Thromboplast Time 26, D-Dimer 2.45H, Sodium Level 128L, Potassium Level 5.9H, Chloride Level 97L, Carbon Dioxide Level 21, Blood Urea Nitrogen 36H, Creatinine 1.9H, Estimat Glomerular Filtration Rate 25.5, Glucose Level 217H, Lactic Acid Level 1.70, Calcium Level 7.8L, Magnesium Level 1.9, Ferritin 304, Total Bilirubin 0.3, Aspartate Amino Transf (AST/SGOT) 37, Alanine Aminotransferase (ALT/SGPT) 13, Alkaline Phosphatase 77, Lactate Dehydrogenase 525H, Total Creatine Kinase 46, Troponin I 0.000, C-Reactive Protein, Quantitative 33.8H, Pro-B-Type Natriuretic Peptide 4471H, Total Protein 6.7, Albumin 2.0L, Globulin 4.7, Albumin/Globulin Ratio 0.4L 06/07/20 13:50: Urine Color Yellow, Urine Appearance Clear, Urine pH 5, Urine Specific [place] 1.015, Urine Protein 2+H, Urine Glucose (UA) Negative, Urine Ketones Negative, Urine Blood Negative, Urine Nitrite Negative, Urine Bilirubin Negative, Urine Urobilinogen Normal, Urine Leukocyte Esterase Negative, Urine RBC 0, Urine WBC 2-4, Urine Squamous Epithelial Cells Few, Urine Bacteria Few 06/07/20 15:00: Urine Random Sodium 79 06/07/20 22:30: Arterial Blood pH 7.365, Arterial Blood Partial Pressure CO2 32.8L, Arterial Blood Partial Pressure O2 88.2, Arterial Blood HCO3 18.3L, Arterial Blood Oxygen Saturation 96.5, Arterial Blood Base Excess -6.1L, Gunnar Test Positive 06/08/20 04:54: White Blood Count 8.0, Red Blood Count 3.77L, Hemoglobin 11.1L, Hematocrit 32.3L , Mean Corpuscular Volume 86, Mean Corpuscular Hemoglobin 29.3, Mean Corpuscular Hemoglobin Concent 34.3, Red Cell Distribution Width 15.3H, Platelet Count 355, Mean Platelet Volume 5.3L, Neutrophils (%) (Auto) , Lymphocytes (%) (Auto) , Monocytes (%) (Auto) , Eosinophils (%) (Auto) , Basophils (%) (Auto) , Differential Total Cells Counted 100, Neutrophils % (Manual) 89H, Lymphocytes % (Manual) 7L, Monocytes % (Manual) 4, Eosinophils % (Manual) 0, Basophils % (Manual) 0, Band Neutrophils 0, Platelet Estimate Adequate, Platelet Morphology Normal, Anisocytosis 1+, Sodium Level 133L, Potassium Level 5.0, Chloride Level 101, Carbon Dioxide Level 23, Blood Urea Nitrogen 35H, Creatinine 1.4H, Estimat Glomerular Filtration Rate 36.3, Glucose Level 335#H, Hemoglobin A1c 8.1H, Lactic Acid Level 1.10, Uric Acid 8.5H, Calcium Level 7.2L, Phosphorus Level 3.4, Magnesium Level 1.8, Total Bilirubin 0.3, Gamma Glutamyl Transpeptidase 52, Aspartate Amino Transf (AST/SGOT) 26, Alanine Aminotransferase (ALT/SGPT) 15, Alkaline Phosphatase 76, Lactate Dehydrogenase 343H, C-Reactive Protein, Quantitative 25.0H, Pro-B-Type Natriuretic Peptide 6761H, Total Protein 6.4, Albumin 1.8L, Globulin 4.6, Albumin/Globulin Ratio 0.4L, Triglycerides Level 161H, Cholesterol Level 142, LDL Cholesterol 89, HDL Cholesterol 19L, Cholesterol/HDL Ratio 7.5H, Thyroid Stimulating Hormone (TSH) 0.332L, Cortisol AM Sample [Pending] 06/08/20 07:46: Arterial Blood pH 7.416, Arterial Blood Partial Pressure CO2 32.8L, Arterial Blood Partial Pressure O2 71.8L, Arterial Blood HCO3 20.6L, Arterial Blood Oxygen Saturation 94.6L, Arterial Blood Base Excess -3.2L, Gunnar Test Positive 06/08/20 08:15: Activated Partial Thromboplast Time 69H Height (Feet): 5 Height (Inches): 4.00 Weight (Pounds): 185 General Appearance: mild distress Cardiovascular: tachycardia Respiratory/Chest: decreased breath sounds Abdomen: distended Josafat Marquez MD Jun 08, 2020 11:02
--- NOTE | 2020-06-08 11:23 | General Progress Note ---
Subjective Date patient seen: Jun 08, 2020 Time patient seen: 11:00 ROS Limited/Unobtainable: No Allergies: Coded Allergies: No Known Allergies (Unverified , 06/07/20) All Systems: reviewed and negative except above Subjective Patient is non BIPAP. She feels short of breath and is able to mantain her compusure during the interview. Denies pain. Objective Last 24 Hour Vital Signs Date Time Temp Pulse Resp B/P (MAP) Pulse Ox O2 Delivery O2 Flow Rate FiO2 06/08/20 11:00 97 39 135/72 (93) 98 06/08/20 10:00 95 32 128/71 (90) 98 06/08/20 09:00 97.6 97 41 133/73 (93) 97 06/08/20 08:35 100 126/71 06/08/20 08:00 94 35 126/71 (89) 97 06/08/20 08:00 Bi-pap 06/08/20 08:00 93 06/08/20 08:00 100 06/08/20 07:12 93 40 98 100 06/08/20 07:00 93 34 131/76 (94) 98 06/08/20 06:00 98.4 104 43 143/80 (101) 99 06/08/20 05:00 87 34 125/79 (94) 98 06/08/20 04:00 Bi-pap 06/08/20 04:00 83 06/08/20 04:00 100 06/08/20 04:00 83 34 124/61 (82) 100 06/08/20 03:00 80 30 109/57 (74) 98 06/08/20 02:35 87 43 99 100 06/08/20 02:00 85 36 112/62 (79) 100 06/08/20 01:00 93 33 124/71 (88) 98 06/08/20 00:00 98.2 90 37 132/69 (90) 100 06/08/20 00:00 Bi-pap 06/08/20 00:00 90 06/07/20 23:00 92 35 143/75 (97) 99 06/07/20 22:46 98 40 92 100 06/07/20 22:04 91 45 92 100 06/07/20 22:00 98.4 92 33 140/71 (94) 98 06/07/20 22:00 100 06/07/20 22:00 Bi-Pap 10.0 06/07/20 21:50 98.7 92 30 137/91 96 Bi-pap 15.0 100 06/07/20 18:48 89 45 93 100 06/07/20 15:03 92 37 117/84 94 Bi-pap 06/07/20 15:01 87 47 95 100 06/07/20 13:44 83 39 96 Bi-Pap 100 88 36 98 100 06/07/20 12:50 98.6 95 30 141/75 95 Non-Rebreather 15.0 06/07/20 12:50 96 30 Non-Rebreather 15.0 95 06/07/20 12:35 98.8 89 20 135/66 (89) 97 Non-Rebreather 15.0 Intake and Output 06/07/20 06/08/20 19:00 07:00 Intake Total 20.14 ml 961.68 ml Output Total 200 ml 2140 ml Balance -179.86 ml -1178.32 ml Intake Oral 0 ml 120 ml IV Total 20.14 ml 841.68 ml Output Urine Total 200 ml 2140 ml Laboratory Tests 06/07/20 12:42: Arterial Blood pH 7.365, Arterial Blood Partial Pressure CO2 32.3L, Arterial Blood Partial Pressure O2 72.0L, Arterial Blood HCO3 18.0L, Arterial Blood Oxygen Saturation 93.7L, Arterial Blood Base Excess -6.3L, Gunnar Test Positive 06/07/20 13:00: White Blood Count 10.7, Red Blood Count 4.23, Hemoglobin 12.4, Hematocrit 37.0, Mean Corpuscular Volume 87, Mean Corpuscular Hemoglobin 29.4, Mean Corpuscular Hemoglobin Concent 33.6, Red Cell Distribution Width 15.0H, Platelet Count 317, Mean Platelet Volume 5.3L, Neutrophils (%) (Auto) , Lymphocytes (%) (Auto) , Monocytes (%) (Auto) , Eosinophils (%) (Auto) , Basophils (%) (Auto) , Differential Total Cells Counted 100, Neutrophils % (Manual) 82H, Lymphocytes % (Manual) 16L, Monocytes % (Manual) 2, Eosinophils % (Manual) 0, Basophils % (Manual) 0, Band Neutrophils 0, Platelet Estimate Adequate, Platelet Morphology Normal, Hypochromasia 1+, Anisocytosis 1+, Prothrombin Time 11.1, Prothromb Time International Ratio 1.0, Activated Partial Thromboplast Time 26, D-Dimer 2.45H, Sodium Level 128L, Potassium Level 5.9H, Chloride Level 97L, Carbon Dioxide Level 21, Blood Urea Nitrogen 36H, Creatinine 1.9H, Estimat Glomerular Filtration Rate 25.5, Glucose Level 217H, Lactic Acid Level 1.70, Calcium Level 7.8L, Magnesium Level 1.9, Ferritin 304, Total Bilirubin 0.3, Aspartate Amino Transf (AST/SGOT) 37, Alanine Aminotransferase (ALT/SGPT) 13, Alkaline Phosphatase 77, Lactate Dehydrogenase 525H, Total Creatine Kinase 46, Troponin I 0.000, C-Reactive Protein, Quantitative 33.8H, Pro-B-Type Natriuretic Peptide 4471H, Total Protein 6.7, Albumin 2.0L, Globulin 4.7, Albumin/Globulin Ratio 0.4L 06/07/20 13:50: Urine Color Yellow, Urine Appearance Clear, Urine pH 5, Urine Specific Sophia 1.015, Urine Protein 2+H, Urine Glucose (UA) Negative, Urine Ketones Negative, Urine Blood Negative, Urine Nitrite Negative, Urine Bilirubin Negative, Urine Urobilinogen Normal, Urine Leukocyte Esterase Negative, Urine RBC 0, Urine WBC 2-4, Urine Squamous Epithelial Cells Few, Urine Bacteria Few 06/07/20 15:00: Urine Random Sodium 79 06/07/20 22:30: Arterial Blood pH 7.365, Arterial Blood Partial Pressure CO2 32.8L, Arterial Blood Partial Pressure O2 88.2, Arterial Blood HCO3 18.3L, Arterial Blood Oxygen Saturation 96.5, Arterial Blood Base Excess -6.1L, Gunnar Test Positive 06/08/20 04:54: White Blood Count 8.0, Red Blood Count 3.77L, Hemoglobin 11.1L, Hematocrit 32.3L , Mean Corpuscular Volume 86, Mean Corpuscular Hemoglobin 29.3, Mean Corpuscular Hemoglobin Concent 34.3, Red Cell Distribution Width 15.3H, Platelet Count 355, Mean Platelet Volume 5.3L, Neutrophils (%) (Auto) , Lymphocytes (%) (Auto) , Monocytes (%) (Auto) , Eosinophils (%) (Auto) , Basophils (%) (Auto) , Dif ferential Total Cells Counted 100, Neutrophils % (Manual) 89H, Lymphocytes % (Manual) 7L, Monocytes % (Manual) 4, Eosinophils % (Manual) 0, Basophils % (Manual) 0, Band Neutrophils 0, Platelet Estimate Adequate, Platelet Morphology Normal, Anisocytosis 1+, Sodium Level 133L, Potassium Level 5.0, Chloride Level 101, Carbon Dioxide Level 23, Blood Urea Nitrogen 35H, Creatinine 1.4H, Estimat Glomerular Filtration Rate 36.3, Glucose Level 335#H, Hemoglobin A1c 8.1H, Lactic Acid Level 1.10, Uric Acid 8.5H, Calcium Level 7.2L, Phosphorus Level 3.4, Magnesium Level 1.8, Total Bilirubin 0.3, Gamma Glutamyl Transpeptidase 52, Aspartate Amino Transf (AST/SGOT) 26, Alanine Aminotransferase (ALT/SGPT) 15, Alkaline Phosphatase 76, Lactate Dehydrogenase 343H, C-Reactive Protein, Quantitative 25.0H, Pro-B-Type Natriuretic Peptide 6761H, Total Protein 6.4, Albumin 1.8L, Globulin 4.6, Albumin/Globulin Ratio 0.4L, Triglycerides Level 161H, Cholesterol Level 142, LDL Cholesterol 89, HDL Cholesterol 19L, Cholesterol/HDL Ratio 7.5H, Thyroid Stimulating Hormone (TSH) 0.332L, Cortisol AM Sample [Pending] 06/08/20 07:46: Arterial Blood pH 7.416, Arterial Blood Partial Pressure CO2 32.8L, Arterial Blood Partial Pressure O2 71.8L, Arterial Blood HCO3 20.6L, Arterial Blood Oxygen Saturation 94.6L, Arterial Blood Base Excess -3.2L, Gunnar Test Positive 06/08/20 08:15: Activated Partial Thromboplast Time 69H Height (Feet): 5 Height (Inches): 4.00 Weight (Pounds): 185 General Appearance: WD/WN, mild distress EENT: PERRL/EOMI Neck: non-tender Cardiovascular: normal rate Respiratory/Chest: decreased breath sounds Abdomen: non tender Neurologic: field service analyst II-XII grossly normal Assessment/Plan Status: not improved Assessment/Plan: 79-year-old female past medical history of diabetes, hypertension and recent diagnosis of COVID-19 1 week ago admitted to the Hospital with: # Acute hypoxemic respiratory failure due to Co -SARS 2 ( Covid 19 ) pneumonia Respiratory support started and will continue with Bipap ICU admission due to high risk of decompensation Pulmonary consultation requested, ABG 7.4///[address] Nolasco. Continue supportive care. Dexamethasone and Heparin gtt started due to High D dimer per protocols for Covid 19 infection Antibiotic therapy ID consultation with Dr. Comer for Remdisivir appreciated. HHN # Renal failure etiology undetermined Renal consult Dr. Rubio Renal US and TTE pending Renal lytes and IVF per renal team Monitor I/O with Flores Avoid nephrotoxins # Hypertensive heart disease Resume Amlodipine # T2DM Stop Metformin due to hospitaliation ISS Monitor BG # HLD Continue Statin DVT ppx with Heparin GI ppx with PPI Actv as tolerated FULL CODE Family will be updated today via phone call. Kavon Yuen MD Jun 08, 2020 11:23
--- NOTE | 2020-06-08 12:15 | NUR ---
NURSE NOTES: Dr. nloasco called to inform the patient was unable to tolerate being placed on 5l/min on venti mask. she desaturated when changing the bipap mask to a full face. dr. Nolasco informed the patient was unable to tolerate being off the bipap. she is currently at 10/5 with FIO2 of 90%. ordered to have ABG done at 1600.
--- NOTE | 2020-06-08 14:30 | NUR ---
NURSE NOTES: heparin drip continues at rate of 20.14ml/hr at 12 units/kg/hr fopr ptt of 69 this morning. the next ptt is to be done at 0400 on 06/09/20. there is no bleeding noted at the iv insertion site or noted at the urine. medication verified with mi-yeon.
[2020-06-08] MEDS: Heparin 25,000u/D5W 500ml 500 ML IV SCH ×2 (14:54→18:23)
--- NOTE | 2020-06-08 15:08 | Pulmonology Progress Note ---
Subjective ROS Limited/Unobtainable: Yes Interval Events: None new Constitutional: Reports: no symptoms HEENT: Repors: no symptoms Cardiovascular: Reports: no symptoms Gastrointestinal/Abdominal: Reports: no symptoms Genitourinary: Reports: no symptoms Neurologic: Reports: no symptoms Allergies: Coded Allergies: No Known Allergies (Unverified , 06/07/20) All Systems: reviewed and negative except above Objective Last 24 Hour Vital Signs Date Time Temp Pulse Resp B/P (MAP) Pulse Ox O2 Delivery O2 Flow Rate FiO2 06/08/20 14:00 98 40 135/72 (93) 95 06/08/20 13:00 104 39 134/78 (96) 94 06/08/20 12:00 100 06/08/20 12:00 100 06/08/20 12:00 Bi-pap 06/08/20 12:00 98.6 103 35 133/78 (96) 97 06/08/20 11:29 101 38 93 100 06/08/20 11:00 97 39 135/72 (93) 98 06/08/20 10:00 95 32 128/71 (90) 98 06/08/20 09:00 97.6 97 41 133/73 (93) 97 06/08/20 08:35 100 126/71 06/08/20 08:00 94 35 126/71 (89) 97 06/08/20 08:00 Bi-pap 06/08/20 08:00 93 06/08/20 08:00 100 06/08/20 07:12 93 40 98 100 06/08/20 07:00 93 34 131/76 (94) 98 06/08/20 06:00 98.4 104 43 143/80 (101) 99 06/08/20 05:00 87 34 125/79 (94) 98 06/08/20 04:00 Bi-pap 06/08/20 04:00 83 06/08/20 04:00 100 06/08/20 04:00 83 34 124/61 (82) 100 06/08/20 03:00 80 30 109/57 (74) 98 06/08/20 02:35 87 43 99 100 06/08/20 02:00 85 36 112/62 (79) 100 06/08/20 01:00 93 33 124/71 (88) 98 06/08/20 00:00 98.2 90 37 132/69 (90) 100 06/08/20 00:00 Bi-pap 06/08/20 00:00 90 06/07/20 23:00 92 35 143/75 (97) 99 06/07/20 22:46 98 40 92 100 06/07/20 22:04 91 45 92 100 06/07/20 22:00 98.4 92 33 140/71 (94) 98 06/07/20 22:00 100 06/07/20 22:00 Bi-Pap 10.0 06/07/20 21:50 98.7 92 30 137/91 96 Bi-pap 15.0 100 06/07/20 18:48 89 45 93 100 06/07/20 15:03 92 37 117/84 94 Bi-pap 06/07/20 15:01 87 47 95 100 Intake and Output 06/07/20 06/08/20 19:00 07:00 Intake Total 20.14 ml 961.68 ml Output Total 200 ml 2140 ml Balance -179.86 ml -1178.32 ml Intake Oral 0 ml 120 ml IV Total 20.14 ml 841.68 ml Output Urine Total 200 ml 2140 ml General Appearance: no acute distress HEENT: normocephalic Respiratory: chest wall non-tender, other - tachypnea Cardiovascular: normal peripheral pulses Abdomen: normal bowel sounds Genitourinary: other - Flores Microbiology Date/Time Source Procedure Growth Status 06/07/20 13:00 Nasopharynx SARS-CoV-2 RdRp Gene Assay - Final Complete 06/07/20 13:00 Nasal Nares - Final Complete 06/07/20 13:00 Nasal Nares - Final Complete Laboratory Tests 06/07/20 15:00: Urine Random Sodium 79 06/07/20 22:30: Arterial Blood pH 7.365, Arterial Blood Partial Pressure CO2 32.8L, Arterial Blood Partial Pressure O2 88.2, Arterial Blood HCO3 18.3L, Arterial Blood Oxygen Saturation 96.5, Arterial Blood Base Excess -6.1L, Gunnar Test Positive 06/08/20 04:54: White Blood Count 8.0, Red Blood Count 3.77L, Hemoglobin 11.1L, Hematocrit 32.3L , Mean Corpuscular Volume 86, Mean Corpuscular Hemoglobin 29.3, Mean Corpuscular Hemoglobin Concent 34.3, Red Cell Distribution Width 15.3H, Platelet Count 355, Mean Platelet Volume 5.3L, Neutrophils (%) (Auto) , Lymphocytes (%) (Auto) , Monocytes (%) (Auto) , Eosinophils (%) (Auto) , Basophils (%) (Auto) , Differential Total Cells Counted 100, Neutrophils % (Manual) 89H, Lymphocytes % (Manual) 7L, Monocytes % (Manual) 4, Eosinophils % (Manual) 0, Basophils % (Manual) 0, Band Neutrophils 0, Platelet Estimate Adequate, Platelet Morphology Normal, Anisocytosis 1+, Sodium Level 133L, Potassium Level 5.0, Chloride Level 101, Carbon Dioxide Level 23, Blood Urea Nitrogen 35H, Creatinine 1.4H, Estimat Glomerular Filtration Rate 36.3, Glucose Level 335#H, Hemoglobin A1c 8.1H, Lactic Acid Level 1.10, Uric Acid 8.5H, Calcium Level 7.2L, Phosphorus Level 3.4, Magnesium Level 1.8, Total Bilirubin 0.3, Gamma Glutamyl Transpeptidase 52, Aspartate Amino Transf (AST/SGOT) 26, Alanine Aminotransferase (ALT/SGPT) 15, Alkaline Phosphatase 76, Lactate Dehydrogenase 343H, C-Reactive Protein, Quantitative 25.0H, Pro-B-Type Natriuretic Peptide 6761H, Total Protein 6.4, Albumin 1.8L, Globulin 4.6, Albumin/Globulin Ratio 0.4L, Triglycerides Level 161H, Cholesterol Level 142, LDL Cholesterol 89, HDL Cholesterol 19L, Cholesterol/HDL Ratio 7.5H, Thyroid Stimulating Hormone (TSH) 0.332L, Cortisol AM Sample [Pending] 06/08/20 07:46: Arterial Blood pH 7.416, Arterial Blood Partial Pressure CO2 32.8L, Arterial Blood Partial Pressure O2 71.8L, Arterial Blood HCO3 20.6L, Arterial Blood Oxygen Saturation 94.6L, Arterial Blood Base Excess -3.2L, Gunnar Test Positive 06/08/20 08:15: Activated Partial Thromboplast Time 69H Current Medications Medications (Trade) Dose Ordered Sig/Vicki Route PRN Reason Start Time Stop Time Status Last Admin Dose Admin Acetaminophen (Tylenol) 650 mg Q4H PRN ORAL Mild Pain (Pain Scale 1-3) 06/07/20 15:15 07/07/20 15:14 Acetaminophen (Tylenol) 650 mg Q4H PRN ORAL Temp >100.5 06/07/20 15:15 07/07/20 15:14 Albuterol/ Ipratropium (Albuterol/ Ipratropium) 3 ml Q6H PRN HHN Shortness of Breath 06/07/20 15:15 06/12/20 15:14 Amlodipine Besylate (Norvasc) 5 mg DAILY ORAL 06/08/20 09:00 07/08/20 08:59 06/08/20 08:35 Atorvastatin Calcium (Lipitor) 40 mg BEDTIME ORAL 06/07/20 21:00 09/05/20 20:59 06/07/20 22:47 Azithromycin 250 mg/Sodium Chloride 275 ml @ 275 mls/hr DAILY IV 06/08/20 09:00 06/12/20 15:15 06/08/20 08:34 Calcium Carbonate (Os-Javier) 500 mg BID ORAL 06/07/20 20:00 09/05/20 19:59 06/08/20 08:34 Cefepime HCl 2 gm/ Dextrose 110 ml @ 220 mls/hr Q24H IV 06/08/20 11:00 06/15/20 10:59 06/08/20 10:51 Dexamethasone Sodium Phosphate (Decadron 10mg/ ml Inj) 6 mg DAILY IV 06/08/20 09:00 06/16/20 09:00 06/08/20 08:34 Dextrose (Dextrose 50%) 25 ml Q30M PRN IV Hypoglycemia 06/08/20 12:30 09/06/20 12:29 Dextrose (Dextrose 50%) 50 ml Q30M PRN IV Hypoglycemia 06/08/20 12:30 09/06/20 12:29 Docusate Sodium (Colace) 100 mg EVERY 12 HOURS ORAL 06/07/20 21:00 07/07/20 20:59 06/08/20 08:34 Heparin Sodium/ Dextrose 500 ml @ 20.14 mls/ hr ADJUST PER PROTOCOL IV 06/07/20 14:15 07/07/20 14:14 06/08/20 14:54 Insulin Aspart (NovoLOG) BEFORE MEALS AND HS SUBQ 06/08/20 16:30 09/06/20 16:29 Insulin Aspart (NovoLOG) Q6HR SUBQ 06/08/20 00:00 09/06/20 00:00 06/08/20 13:47 Lorazepam (Ativan 2mg/ml 1ml) 0.5 mg Q4H PRN IV For Anxiety 06/07/20 15:15 06/14/20 15:14 Morphine Sulfate (Morphine Sulfate) 2 mg Q4H PRN IVP Moderate Pain (Pain Scale 4-6) 06/07/20 15:15 06/14/20 15:14 Ondansetron HCl (Zofran) 4 mg Q6H PRN IVP Nausea & Vomiting 06/07/20 15:15 07/07/20 15:14 Pantoprazole (Protonix) 40 mg EVERY 12 HOURS IVP 06/07/20 21:00 07/07/20 20:59 06/08/20 08:34 Polyethylene Glycol (Miralax) 17 gm DAILYPRN PRN ORAL Constipation 06/07/20 15:15 07/07/20 15:14 Sodium Chloride 1,000 ml @ 75 mls/hr [id number] IV 06/07/20 15:00 07/07/20 14:59 06/07/20 23:00 Temazepam (Restoril) 15 mg HSPRN PRN ORAL Insomnia 06/07/20 15:15 06/14/20 15:14 Assessment/Plan Assessment/Plan 1. COVID-19 pneumonia. - pt would benefit from steroids and remdesivir - Defer use of remdesivir to ID - Cont decadron - Respiratory isolation 2. Hypoxemia. - Cont BiPAP; unable to tolerate wean - Now on full face mask 3. Hypertension. 4. Diabetes mellitus. 5. Respiratory Failure. Trend ABG's. - pH 7.4 - pCO2 32.8 - pO2 71.8 - HCO3 20.6 The care for this patient was discussed with my supervising physician Seen and examined by Dr. Nolasco as well The history of Devi Ratliff has been reviewed and management options for her have been examined and discussed by Francis Nolasco. I have personally examined and interviewed the patient. Time spent for this case was approximately 31 minutes Gabriel Andrea Jun 08, 2020 15:08 Francis Nolsaco MD Jun 08, 2020 16:57
--- NOTE | 2020-06-08 16:05 | NUR ---
NURSE NOTES: Luis Alberto Guerrero called to inform of patient ABG results while remaining on bipap at 10/5 with FIo2 of 90%. she denies any pain at the chest. her heart rate is at 97-99 in sinus rhythm with BP of 94-97%. she remains awake and talkative, she is able to communicated with no slur or delay. she remains on heprain drip at 20.14 ml/hr at dose of 12units/kg/hr. she remains watching television and able to use remote to change television channels.
--- NOTE | 2020-06-08 19:33 | CDS Physician Query ---
Clarification is required for compliance, coding accuracy, and to reflect severity of illness for this patient Dear Dr. Kavon Yuen MD Date:06/08/20 Battery Technician/CDS Name:MODE MURPHY 79-year-old female past medical history of diabetes, hypertension and recent diagnosis of COVID-19 approximatly 1 week ago who presents to the ER complaining of shortness of breath. [H&P Kavon Yuen MD 06/07/20] Assessment: Acute hypoxemic respiratory failure due to Co -SARS 2 ( Covid 19 ) pneumonia Renal failure etiology undetermined Hypertensive heart disease T2DM Clinical Finding Show: BMI: 31.8 kg/m2 LAB (06/07) : Chem: Albumin 2.0 [3.4-5.0], Calcium 7.8 [ 8.5-10.1] Please select the most appropriate option: [] Protein/Calorie Malnutrition [] Mild [x] Moderate [] Severe [] Hypoalbuminemia [] Cachexia [] Underweight [] Intestinal malabsorption [] Other [] Unable to determine [] Not Applicable Present on Admission: [] Yes [] No [] Clinically Undetermined Physician signature Date Please also document in your Progress Notes and/or Discharge Summary and indicate if the condition was present on admission. MTDD
--- NOTE | 2020-06-08 19:37 | NUR ---
NURSE HAND-OFF REPORT: Latest Vital Signs: Temperature 97.6 , Pulse 102 , B/P 129 /72 , Respiratory Rate 39 , O2 SAT 96 , Bi-pap, O2 Flow Rate 10.0 . Vital Sign Comment: EKG Rhythm: Sinus Tachycardia Rhythm change?: N MD Notified?: - MD Response: Latest Griffiths Fall Score: 35 Fall Risk: Medium Risk Safety Measures: Call light Within Reach, Bed Alarm Zone 1, Side Rails Side Rails x3, Bed position Low and Locked. Fall Precautions: Yellow Socks Door Sign Patient Fall Education Report given to ANAYELI harvey. patient remains on heparin drip at 12units/kg/hr at rate of 20.14ml/hr, next PTT is schedules for 06/09/20 at 0400. she remains awake and talkative on bipap at / at fio2 of 90%. she is responsive to name.
--- NOTE | 2020-06-08 19:43 | NUR ---
NURSE NOTES: received reportf from andrew varela pt awake and alert on b-pap 04/07 90 %fio2 no acute resp distress noted o2 sat 99% iv infusing well heparin drip at 12 units per hr site good reposition and suction urinary output good
--- NOTE | 2020-06-08 19:43 | CDS Physician Query ---
Clarification is required for compliance, coding accuracy, and to reflect severity of illness for this patient Dear Dr. Kavon Davis MD Date:06/08/20 Hi Teacher/CDS Name:MODE MURPHY 79-year-old female past medical history of diabetes, hypertension and recent diagnosis of COVID-19 approximatly 1 week ago who presents to the ER complaining of shortness of breath. [H&P Kavon Davis MD 06/07/20] Assessment: Acute hypoxemic respiratory failure due to Co -SARS 2 ( Covid 19 ) pneumonia Renal failure etiology undetermined Hypertensive heart disease T2DM Assessment: Renal failure most likely acute on chronic [Josafat Rodriguez MD 06/08) Clinical Finding Show: 06/07 06/08 (13:00) (04:54) Creatinine 1.9 1.4 BUN 36 35 GFR 25.5 36.3 Medication: Sodium Chloride IV "Renal Failure" documented in H&P Please Clarify the type of renal failure below: Etiology [] Acute Renal Failure w/ Tubular Necrosis [] Acute Renal Failure w/ Cortical Necrosis [] Acute Renal Failure w/ Medullary Necrosis [x] Acute Renal Failure (unspecified) [] Other: If Chronic, please specify the stage: [] CKD Stage 1 [] CKD Stage 2 [x] CKD Stage 3 [] CKD Stage 4 [] CKD Stage 5 [] ESRD [] Not applicable Present on Admission: [x] Yes [] No [] Clinically Undetermined kavon davis Physician signature Date Please also document in your Progress Notes and/or Discharge Summary and indicate if the condition was present on admission. MARLOD
[2020-06-08] MEDS: Atorvastatin 20mg tab ORAL SCH (20:57)
[2020-06-09] VITALS (25 sets, daily range): BP systolic 133–150; BP diastolic 70–94
[2020-06-09 04:36] LABS: HEMATOCRIT 34.6 % (37.0-47.0); HEMOGLOBIN 11.6 G/DL (12.0-16.0); MEAN CORPUSCULAR VOLUME 89 FL (80-99); PLATELET COUNT 485 K/UL (150-450); RED BLOOD COUNT 3.87 M/UL (4.20-5.40); RED CELL DISTRIBUTION WIDTH 14.9 % (11.6-14.8); WHITE BLOOD COUNT 12.6 K/UL (4.8-10.8)
[2020-06-09 04:57] LABS: ALANINE AMINOTRANSFERASE 20 U/L (12-78); ALBUMIN 1.8 G/DL (3.4-5.0); ALBUMIN/GLOBULIN RATIO 0.4 (1.0-2.7); ALKALINE PHOSPHATASE 75 U/L (46-116); ANION GAP 10 mmol/L (5-15); ASPARTATE AMINO TRANSFERASE 28 U/L (15-37); BILIRUBIN,TOTAL 0.3 MG/DL (0.2-1.0); BLOOD UREA NITROGEN 23 mg/dL (7-18); CALCIUM 7.3 MG/DL (8.5-10.1); CARBON DIOXIDE 22 MMOL/L (21-32); CHLORIDE 105 MMOL/L (98-107); CREATININE 0.9 MG/DL (0.55-1.30); POTASSIUM 4.5 MMOL/L (3.5-5.1); SODIUM 136 MMOL/L (136-145)
[2020-06-09] MEDS ORDERED: Heparin 5000 units/ml inj IV ONE (05:30)
[2020-06-09] MEDS: Heparin 25,000u/D5W 500ml 500 ML IV SCH ×2 (05:35→15:25)
[2020-06-09] MEDS: NovoLOG Insulin Flexpen SUBQ SCH ×4 (06:10→21:32)
--- NOTE | 2020-06-09 08:30 | NUR ---
NURSE NOTES: Report received from ANAYELI Saleh. patient remains on heparin drip of 14untis/kg/hr. she is awake and talkative and able to make needs known in Luxembourgish, she is currently of bipap at 10/5 at fios of 100%. ptt is schedules for 1200, griggs remains draingin clear straw colored urine.
--- NOTE | 2020-06-09 09:37 | Diagnostic Imaging Report ---
EXAM: XR Chest, 1 View CLINICAL HISTORY: SOB TECHNIQUE: Frontal view of the chest. COMPARISON: None FINDINGS: Hardware: None. Lungs/pleura: Patchy opacities throughout the lung. No pleural effusion or pneumothorax. Mild elevation of the right hemidiaphragm. Heart/mediastinum: Mild enlargement of the cardiac silhouette. Atherosclerotic calcifications of the aorta. Soft tissues: Unremarkable. Bones: No acute fracture. Degenerative changes of the spine. Upper abdomen: Normal. IMPRESSION: Patchy opacities throughout the lungs, suggestive of an infectious/inflammatory process such as Covid 19.
--- NOTE | 2020-06-09 09:39 | Infectious Diseases Prog Note ---
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 KEVIN, improved Obesity DM2 HTN Plan: Start remdesivir #07/08 given improved KEVIN Cont dexamethasone 6mg daily #3 Cont empiric cefepime and Azithromycin #3/ This institution unfortunately does not have convalescent plasma available, although as pt 1 week out from dx unlikely to benefit at this point Monitor CBC/CMP Monitor temp curve, hemodynamics Monitor resp status D/w RN Thank you for this consult. [facility] will continue to follow. Subjective Allergies: Coded Allergies: No Known Allergies (Unverified , 06/07/20) AF WBC up to 12 on steroids NAD on BiPAP Objective Last 24 Hour Vital Signs Date Time Temp Pulse Resp B/P (MAP) Pulse Ox O2 Delivery O2 Flow Rate FiO2 06/09/20 07:00 101 40 100 100 06/09/20 06:00 92 25 141/84 (103) 06/09/20 05:00 Bi-pap 06/09/20 05:00 103 29 146/75 (98) 06/09/20 04:00 100 06/09/20 04:00 104 06/09/20 04:00 98.5 94 27 147/77 (100) 98 06/09/20 03:00 98 28 145/80 (101) 99 06/09/20 02:54 98 40 98 100 06/09/20 02:00 100 34 150/85 (106) 99 06/09/20 01:00 98 32 144/84 (104) 97 06/09/20 00:00 Bi-pap 06/09/20 00:00 97 06/09/20 00:00 100 06/09/20 00:00 96 32 149/75 (99) 97 06/08/20 23:00 99 33 141/81 (101) 95 06/08/20 22:53 100 39 96 100 06/08/20 22:00 101 34 143/81 (101) 98 06/08/20 21:00 97.8 98 39 137/84 (101) 98 06/08/20 20:00 100 06/08/20 20:00 102 42 135/79 (97) 97 06/08/20 20:00 Bi-pap 06/08/20 20:00 95 06/08/20 19:00 102 39 129/72 (91) 96 06/08/20 18:54 98 40 95 90 06/08/20 18:00 101 40 134/80 (98) 93 06/08/20 17:00 96 35 136/69 (91) 96 06/08/20 16:00 97.6 96 28 130/76 (94) 97 06/08/20 16:00 Bi-pap 06/08/20 16:00 97 06/08/20 16:00 100 06/08/20 15:00 97 34 120/78 (92) 97 06/08/20 14:52 97 42 96 100 06/08/20 14:00 98 40 135/72 (93) 95 06/08/20 14:00 98 40 135/72 (93) 95 06/08/20 13:00 104 39 134/78 (96) 94 06/08/20 13:00 104 39 134/78 (96) 94 06/08/20 12:00 100 06/08/20 12:00 103 35 133/78 (96) 97 06/08/20 12:00 100 06/08/20 12:00 Bi-pap 06/08/20 12:00 98.6 103 35 133/78 (96) 97 06/08/20 11:29 101 38 93 100 06/08/20 11:00 97 39 135/72 (93) 98 06/08/20 11:00 97 39 135/72 (93) 98 06/08/20 10:00 95 32 128/71 (90) 98 06/08/20 10:00 95 32 128/71 (90) 98 Height (Feet): 5 Height (Inches): 4.00 Weight (Pounds): 185 Gen: NAD HEENT: NCAT Pulm: BL chest rise Abd: Non-distended Ext: No c/c/e Skin: No visible rashes Neuro: Awake Microbiology Date/Time Source Procedure Growth Status 06/07/20 13:00 Nasopharynx SARS-CoV-2 RdRp Gene Assay - Final Complete 06/07/20 13:00 Nasal Nares - Final Complete 06/07/20 13:00 Nasal Nares - Final Complete 06/07/20 13:00 Blood Blood Culture - Preliminary NO GROWTH AFTER 24 HOURS Resulted 06/07/20 12:45 Blood Blood Culture - Preliminary NO GROWTH AFTER 24 HOURS Resulted Laboratory Tests Test 06/08/20 15:58 06/09/20 04:23 Arterial Blood pH 7.482 (7.350-7.450) Arterial Blood Partial Pressure CO2 25.3 mmHg (35.0-45.0) L Arterial Blood Partial Pressure O2 74.8 mmHg (75.0-100.0) L Arterial Blood HCO3 18.5 mmol/L (22.0-26.0) L Arterial Blood Oxygen Saturation 95.4 % (95-100) Arterial Blood Base Excess -3.6 (-2-2) L Gunnar Test Positive White Blood Count 12.6 K/UL (4.8-10.8) #H Red Blood Count 3.87 M/UL (4.20-5.40) L Hemoglobin 11.6 G/DL (12.0-16.0) L Hematocrit 34.6 % (37.0-47.0) L Mean Corpuscular Volume 89 FL (80-99) Mean Corpuscular Hemoglobin 30.0 PG (27.0-31.0) Mean Corpuscular Hemoglobin Concent 33.5 G/DL (32.0-36.0) Red Cell Distribution Width 14.9 % (11.6-14.8) H Platelet Count 485 K/UL (150-450) H Mean Platelet Volume 4.8 FL (6.5-10.1) L Neutrophils (%) (Auto) % (45.0-75.0) Lymphocytes (%) (Auto) % (20.0-45.0) Monocytes (%) (Auto) % (1.0-10.0) Eosinophils (%) (Auto) % (0.0-3.0) Basophils (%) (Auto) % (0.0-2.0) Differential Total Cells Counted 100 Neutrophils % (Manual) 87 % (45-75) H Lymphocytes % (Manual) 6 % (20-45) L Monocytes % (Manual) 7 % (1-10) Eosinophils % (Manual) 0 % (0-3) Basophils % (Manual) 0 % (0-2) Band Neutrophils 0 % (0-8) Platelet Estimate Adequate Platelet Morphology Normal Anisocytosis 1+ Activated Partial Thromboplast Time 56 SEC (23-33) H Sodium Level 136 MMOL/L (136-145) Potassium Level 4.5 MMOL/L (3.5-5.1) Chloride Level 105 MMOL/L (98-107) Carbon Dioxide Level 22 MMOL/L (21-32) Anion Gap 10 mmol/L (5-15) Blood Urea Nitrogen 23 mg/dL (7-18) H Creatinine 0.9 MG/DL (0.55-1.30) Estimat Glomerular Filtration Rate > 60 mL/min (>60) Glucose Level 299 MG/DL (74-106) H Calcium Level 7.3 MG/DL (8.5-10.1) L Total Bilirubin 0.3 MG/DL (0.2-1.0) Aspartate Amino Transf (AST/SGOT) 28 U/L (15-37) Alanine Aminotransferase (ALT/SGPT) 20 U/L (12-78) Alkaline Phosphatase 75 U/L (46-116) Total Protein 6.6 G/DL (6.4-8.2) Albumin 1.8 G/DL (3.4-5.0) L Globulin 4.8 g/dL Albumin/Globulin Ratio 0.4 (1.0-2.7) L Current Medications Medications (Trade) Dose Ordered Sig/Vicki Route PRN Reason Start Time Stop Time Status Last Admin Dose Admin Acetaminophen (Tylenol) 650 mg Q4H PRN ORAL Mild Pain (Pain Scale 1-3) 06/07/20 15:15 07/07/20 15:14 Acetaminophen (Tylenol) 650 mg Q4H PRN ORAL Temp >100.5 06/07/20 15:15 07/07/20 15:14 Albuterol/ Ipratropium (Combivent Respimat) 1 puff Q6H PRN INH Shortness of Breath 06/08/20 18:30 07/08/20 18:29 Amlodipine Besylate (Norvasc) 5 mg DAILY ORAL 06/08/20 09:00 07/08/20 08:59 06/08/20 08:35 Atorvastatin Calcium (Lipitor) 40 mg BEDTIME ORAL 06/07/20 21:00 09/05/20 20:59 06/08/20 20:57 Azithromycin 250 mg/Sodium Chloride 275 ml @ 275 mls/hr DAILY IV 06/08/20 09:00 06/12/20 15:15 06/08/20 08:34 Calcium Carbonate (Os-Javier) 500 mg BID ORAL 06/07/20 20:00 09/05/20 19:59 06/08/20 18:23 Cefepime HCl 2 gm/ Dextrose 110 ml @ 220 mls/hr Q24H IV 06/08/20 11:00 06/15/20 10:59 06/08/20 10:51 Dexamethasone Sodium Phosphate (Decadron 10mg/ ml Inj) 6 mg DAILY IV 06/08/20 09:00 06/16/20 09:00 06/08/20 08:34 Dextrose (Dextrose 50%) 25 ml Q30M PRN IV Hypoglycemia 06/08/20 12:30 09/06/20 12:29 Dextrose (Dextrose 50%) 50 ml Q30M PRN IV Hypoglycemia 06/08/20 12:30 09/06/20 12:29 Docusate Sodium (Colace) 100 mg EVERY 12 HOURS ORAL 06/07/20 21:00 07/07/20 20:59 06/08/20 20:57 Heparin Sodium/ Dextrose 500 ml @ 23.496 mls/ hr ADJUST PER PROTOCOL IV 06/08/20 17:45 07/08/20 17:44 06/09/20 05:35 Insulin Aspart (NovoLOG) BEFORE MEALS AND HS SUBQ 06/08/20 16:30 09/06/20 16:29 06/09/20 06:10 Lorazepam (Ativan 2mg/ml 1ml) 0.5 mg Q4H PRN IV For Anxiety 06/07/20 15:15 06/14/20 15:14 Morphine Sulfate (Morphine Sulfate) 2 mg Q4H PRN IVP Moderate Pain (Pain Scale 4-6) 06/07/20 15:15 06/14/20 15:14 Ondansetron HCl (Zofran) 4 mg Q6H PRN IVP Nausea & Vomiting 06/07/20 15:15 07/07/20 15:14 Pantoprazole (Protonix) 40 mg EVERY 12 HOURS IVP 06/07/20 21:00 07/07/20 20:59 06/08/20 20:57 Polyethylene Glycol (Miralax) 17 gm DAILYPRN PRN ORAL Constipation 06/07/20 15:15 07/07/20 15:14 Sodium Chloride 1,000 ml @ 75 mls/hr [id number] IV 06/07/20 15:00 07/07/20 14:59 06/08/20 18:23 Temazepam (Restoril) 15 mg HSPRN PRN ORAL Insomnia 06/07/20 15:15 06/14/20 15:14 Nicolasa Del Cid M.D. Jun 09, 2020 09:39
[2020-06-09] MEDS: Pantoprazole Inj IVP SCH ×2 (09:43→20:43)
[2020-06-09] MEDS: Azithromycin 250 MG in NS 275 ML IV SCH (09:43)
[2020-06-09] MEDS: Os-Cal (Oyster Shell) 500mg tab ORAL SCH ×2 (09:44→17:08)
[2020-06-09] MEDS: Docusate 100mg cap ORAL SCH ×2 (09:44→20:43)
[2020-06-09] MEDS: dexAMETHasone 10mg/ml Inj IV SCH (09:45)
--- NOTE | 2020-06-09 10:05 | General Progress Note ---
Subjective Date patient seen: Jun 09, 2020 Time patient seen: 11:00 ROS Limited/Unobtainable: Yes Allergies: Coded Allergies: No Known Allergies (Unverified , 06/07/20) Subjective Patient is on BIPAP. She feels short of breath and is able to mantain her com pusure during the interview. Denies pain. Objective Last 24 Hour Vital Signs Date Time Temp Pulse Resp B/P (MAP) Pulse Ox O2 Delivery O2 Flow Rate FiO2 06/09/20 09:44 99 148/84 06/09/20 08:00 100 06/09/20 07:00 101 40 100 100 06/09/20 06:00 92 25 141/84 (103) 06/09/20 05:00 Bi-pap 06/09/20 05:00 103 29 146/75 (98) 06/09/20 04:00 100 06/09/20 04:00 104 06/09/20 04:00 98.5 94 27 147/77 (100) 98 06/09/20 03:00 98 28 145/80 (101) 99 06/09/20 02:54 98 40 98 100 06/09/20 02:00 100 34 150/85 (106) 99 06/09/20 01:00 98 32 144/84 (104) 97 06/09/20 00:00 Bi-pap 06/09/20 00:00 97 06/09/20 00:00 100 06/09/20 00:00 96 32 149/75 (99) 97 06/08/20 23:00 99 33 141/81 (101) 95 06/08/20 22:53 100 39 96 100 06/08/20 22:00 101 34 143/81 (101) 98 06/08/20 21:00 97.8 98 39 137/84 (101) 98 06/08/20 20:00 100 06/08/20 20:00 102 42 135/79 (97) 97 06/08/20 20:00 Bi-pap 06/08/20 20:00 95 06/08/20 19:00 102 39 129/72 (91) 96 06/08/20 18:54 98 40 95 90 06/08/20 18:00 101 40 134/80 (98) 93 06/08/20 17:00 96 35 136/69 (91) 96 06/08/20 16:00 97.6 96 28 130/76 (94) 97 06/08/20 16:00 Bi-pap 06/08/20 16:00 97 06/08/20 16:00 100 06/08/20 15:00 97 34 120/78 (92) 97 06/08/20 14:52 97 42 96 100 06/08/20 14:00 98 40 135/72 (93) 95 06/08/20 14:00 98 40 135/72 (93) 95 06/08/20 13:00 104 39 134/78 (96) 94 06/08/20 13:00 104 39 134/78 (96) 94 06/08/20 12:00 100 06/08/20 12:00 103 35 133/78 (96) 97 06/08/20 12:00 100 06/08/20 12:00 Bi-pap 06/08/20 12:00 98.6 103 35 133/78 (96) 97 06/08/20 11:29 101 38 93 100 06/08/20 11:00 97 39 135/72 (93) 98 06/08/20 11:00 97 39 135/72 (93) 98 Intake and Output 06/08/20 06/09/20 18:59 06:59 Intake Total 2301.564 ml 1966.148 ml Output Total 845 ml 995 ml Balance 1456.564 ml 971.148 ml Intake Oral 680 ml 730 ml IV Total 1561.564 ml 1236.148 ml Other 60 ml Output Urine Total 845 ml 995 ml Laboratory Tests 06/08/20 15:58: Arterial Blood pH 7.482H, Arterial Blood Partial Pressure CO2 25.3L, Arterial Blood Partial Pressure O2 74.8L, Arterial Blood HCO3 18.5L, Arterial Blood Oxygen Saturation 95.4, Arterial Blood Base Excess -3.6L, Gunnar Test Positive 06/09/20 04:23: White Blood Count 12.6#H, Red Blood Count 3.87L, Hemoglobin 11.6L, Hematocrit 34.6L, Mean Corpuscular Volume 89, Mean Corpuscular Hemoglobin 30.0, Mean Corpuscular Hemoglobin Concent 33.5, Red Cell Distribution Width 14.9H, Platelet Count 485H, Mean Platelet Volume 4.8L, Neutrophils (%) (Auto) , Lymphocytes (%) (Auto) , Monocytes (%) (Auto) , Eosinophils (%) (Auto) , Basophils (%) (Auto) , Differential Total Cells Counted 100, Neutrophils % (Manual) 87H, Lymphocytes % (Manual) 6L, Monocytes % (Manual) 7, Eosinophils % (Manual) 0, Basophils % (Manual) 0, Band Neutrophils 0, Platelet Estimate Adequate, Platelet Morphology Normal, Anisocytosis 1+, Activated Partial Thromboplast Time 56H, Sodium Level 136, Potassium Level 4.5, Chloride Level 105, Carbon Dioxide Level 22, Anion Gap 10, Blood Urea Nitrogen 23H, Creatinine 0.9, Estimat Glomerular Filtration Rate > 60, Glucose Level 299H, Calcium Level 7.3L, Total Bilirubin 0.3, Aspartate Amino Transf (AST/SGOT) 28, Alanine Aminotransferase (ALT/SGPT) 20, Alkaline Phosphatase 75, Total Protein 6.6, Albumin 1.8L, Globulin 4.8, Albumin/Globulin Ratio 0.4L Height (Feet): 5 Height (Inches): 4.00 Weight (Pounds): 185 General Appearance: WD/WN EENT: PERRL/EOMI Neck: non-tender Cardiovascular: tachycardia Respiratory/Chest: decreased breath sounds Abdomen: soft Extremities: normal range of motion 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 Nolasco. Continue supportive care. Dexamethasone and Heparin gtt started due to High D dimer per protocols for Covid 19 infection Antibiotic therapy with Cefepime and Azithromyicin 2/[address] Del Cid for Remdisivir appreciated. No access to convalescent plasma at [facility] and data showed no survival benefit. HHN prn # Renal failure etiology undetermined Renal consult Dr. Rubio Renal US and TTE pending Renal lytes and IVF per renal team Monitor I/O with Flores Avoid nephrotoxins # Hypertensive heart disease Resume Amlodipinez # T2DM Stop Metformin due to hospitalization ISS Monitor BG # HLD Continue Statin DVT ppx with Heparin GI ppx with PPI Actv as tolerated FULL CODE Kavon Yuen MD Jun 09, 2020 10:05
--- NOTE | 2020-06-09 10:23 | Nephrology Progress Note ---
Assessment/Plan Problem List: (1) Acute respiratory disease due to COVID-19 virus (2) Renal failure (3) Hyperkalemia (4) COVID-19 (5) Diabetic nephropathy Assessment: 2+ proteinuria (6) Dehydration Assessment Renal failure most likely acute on chronic Hyperkalemia, hyponatremia Diabetes mellitus, hyperglycemia History of hypertension Plan June 09: Patient in ICU. Full code. On BiPAP. Labs reviewed. Renal parameters stable. Continue per consultants. Continue to monitor renal parameters. June 08: Patient seen in ICU. Full code. On BiPAP. Has Flores catheter. Labs reviewed. Electrolyte abnormalities improved. Serum creatinine lower. Waiting for 2D echo and kidney ultrasound results. Discussed with RN. June 07: Flores catheter Slow hydration Urine studies Avoid nephrotoxic's Pulmonary support 2D echo Kidney ultrasound Per orders Subjective ROS Limited/Unobtainable: Yes Objective Objective Last 24 Hour Vital Signs Date Time Temp Pulse Resp B/P (MAP) Pulse Ox O2 Delivery O2 Flow Rate FiO2 06/09/20 10:00 100 26 145/84 (104) 98 06/09/20 09:44 99 148/84 06/09/20 09:00 98 31 148/84 (105) 99 06/09/20 08:00 100 06/09/20 08:00 97.4 97 34 138/81 (100) 99 06/09/20 08:00 100 06/09/20 07:00 101 35 135/81 (99) 06/09/20 07:00 101 40 100 100 06/09/20 06:00 92 25 141/84 (103) 06/09/20 05:00 Bi-pap 06/09/20 05:00 103 29 146/75 (98) 06/09/20 04:00 100 06/09/20 04:00 104 06/09/20 04:00 98.5 94 27 147/77 (100) 98 06/09/20 03:00 98 28 145/80 (101) 99 06/09/20 02:54 98 40 98 100 06/09/20 02:00 100 34 150/85 (106) 99 06/09/20 01:00 98 32 144/84 (104) 97 06/09/20 00:00 Bi-pap 06/09/20 00:00 97 06/09/20 00:00 100 12/7/20 00:00 96 32 149/75 (99) 97 06/08/20 23:00 99 33 141/81 (101) 95 06/08/20 22:53 100 39 96 100 06/08/20 22:00 101 34 143/81 (101) 98 06/08/20 21:00 97.8 98 39 137/84 (101) 98 06/08/20 20:00 100 06/08/20 20:00 102 42 135/79 (97) 97 06/08/20 20:00 Bi-pap 06/08/20 20:00 95 06/08/20 19:00 102 39 129/72 (91) 96 06/08/20 18:54 98 40 95 90 06/08/20 18:00 101 40 134/80 (98) 93 06/08/20 17:00 96 35 136/69 (91) 96 06/08/20 16:00 97.6 96 28 130/76 (94) 97 06/08/20 16:00 Bi-pap 06/08/20 16:00 97 06/08/20 16:00 100 06/08/20 15:00 97 34 120/78 (92) 97 06/08/20 14:52 97 42 96 100 06/08/20 14:00 98 40 135/72 (93) 95 06/08/20 14:00 98 40 135/72 (93) 95 06/08/20 13:00 104 39 134/78 (96) 94 06/08/20 13:00 104 39 134/78 (96) 94 06/08/20 12:00 100 06/08/20 12:00 103 35 133/78 (96) 97 06/08/20 12:00 100 06/08/20 12:00 Bi-pap 06/08/20 12:00 98.6 103 35 133/78 (96) 97 06/08/20 11:29 101 38 93 100 06/08/20 11:00 97 39 135/72 (93) 98 06/08/20 11:00 97 39 135/72 (93) 98 Intake and Output 06/08/20 06/09/20 19:00 07:00 Intake Total 2219.180 ml 1976.888 ml Output Total 830 ml 1050 ml Balance 1389.180 ml 926.888 ml Intake Oral 680 ml 730 ml IV Total 1479.180 ml 1246.888 ml Other 60 ml Output Urine Total 830 ml 1050 ml Current Medications Medications (Trade) Dose Ordered Sig/Vicki Route PRN Reason Start Time Stop Time Status Last Admin Dose Admin Acetaminophen (Tylenol) 650 mg Q4H PRN ORAL Mild Pain (Pain Scale 1-3) 06/07/20 15:15 07/07/20 15:14 Acetaminophen (Tylenol) 650 mg Q4H PRN ORAL Temp >100.5 06/07/20 15:15 07/07/20 15:14 Albuterol/ Ipratropium (Combivent Respimat) 1 puff Q6H PRN INH Shortness of Breath 06/08/20 18:30 07/08/20 18:29 Amlodipine Besylate (Norvasc) 5 mg DAILY ORAL 06/08/20 09:00 07/08/20 08:59 06/09/20 09:44 Atorvastatin Calcium (Lipitor) 40 mg BEDTIME ORAL 06/07/20 21:00 09/05/20 20:59 06/08/20 20:57 Azithromycin 250 mg/Sodium Chloride 275 ml @ 275 mls/hr DAILY IV 06/08/20 09:00 06/12/20 15:15 06/09/20 09:43 Calcium Carbonate (Os-Javier) 500 mg BID ORAL 06/07/20 20:00 09/05/20 19:59 06/09/20 09:44 Cefepime HCl 2 gm/ Dextrose 110 ml @ 220 mls/hr Q24H IV 06/08/20 11:00 06/15/20 10:59 06/08/20 10:51 Dexamethasone Sodium Phosphate (Decadron 10mg/ ml Inj) 6 mg DAILY IV 06/08/20 09:00 06/16/20 09:00 06/09/20 09:45 Dextrose (Dextrose 50%) 25 ml Q30M PRN IV Hypoglycemia 06/08/20 12:30 09/06/20 12:29 Dextrose (Dextrose 50%) 50 ml Q30M PRN IV Hypoglycemia 06/08/20 12:30 09/06/20 12:29 Docusate Sodium (Colace) 100 mg EVERY 12 HOURS ORAL 06/07/20 21:00 07/07/20 20:59 06/09/20 09:44 Heparin Sodium/ Dextrose 500 ml @ 23.496 mls/ hr ADJUST PER PROTOCOL IV 06/08/20 17:45 07/08/20 17:44 06/09/20 05:35 Insulin Aspart (NovoLOG) BEFORE MEALS AND HS SUBQ 06/08/20 16:30 09/06/20 16:29 06/09/20 06:10 Lorazepam (Ativan 2mg/ml 1ml) 0.5 mg Q4H PRN IV For Anxiety 06/07/20 15:15 06/14/20 15:14 Morphine Sulfate (Morphine Sulfate) 2 mg Q4H PRN IVP Moderate Pain (Pain Scale 4-6) 06/07/20 15:15 06/14/20 15:14 Ondansetron HCl (Zofran) 4 mg Q6H PRN IVP Nausea & Vomiting 06/07/20 15:15 07/07/20 15:14 Pantoprazole (Protonix) 40 mg EVERY 12 HOURS IVP 06/07/20 21:00 07/07/20 20:59 06/09/20 09:43 Polyethylene Glycol (Miralax) 17 gm DAILYPRN PRN ORAL Constipation 06/07/20 15:15 07/07/20 15:14 Remdesivir 100 mg/ Sodium Chloride 250 ml @ 250 mls/hr Q24H IV 06/10/20 16:00 06/13/20 16:59 Remdesivir 200 mg/ Sodium Chloride 250 ml @ 125 mls/hr ONCE IV 06/09/20 16:00 06/09/20 17:59 Sodium Chloride 1,000 ml @ 75 mls/hr [id number] IV 06/07/20 15:00 07/07/20 14:59 06/09/20 09:44 Temazepam (Restoril) 15 mg HSPRN PRN ORAL Insomnia 06/07/20 15:15 06/14/20 15:14 Laboratory Tests 06/08/20 15:58: Arterial Blood pH 7.482H, Arterial Blood Partial Pressure CO2 25.3L, Arterial Blood Partial Pressure O2 74.8L, Arterial Blood HCO3 18.5L, Arterial Blood Oxygen Saturation 95.4, Arterial Blood Base Excess -3.6L, Gunnar Test Positive 06/09/20 04:23: White Blood Count 12.6#H, Red Blood Count 3.87L, Hemoglobin 11.6L, Hematocrit 34.6L, Mean Corpuscular Volume 89, Mean Corpuscular Hemoglobin 30.0, Mean Corpuscular Hemoglobin Concent 33.5, Red Cell Distribution Width 14.9H, Platelet Count 485H, Mean Platelet Volume 4.8L, Neutrophils (%) (Auto) , Lymphocytes (%) (Auto) , Monocytes (%) (Auto) , Eosinophils (%) (Auto) , Basophils (%) (Auto) , Differential Total Cells Counted 100, Neutrophils % (Manual) 87H, Lymphocytes % (Manual) 6L, Monocytes % (Manual) 7, Eosinophils % (Manual) 0, Basophils % (Manual) 0, Band Neutrophils 0, Platelet Estimate Adequate, Platelet Morphology Normal, Anisocytosis 1+, Activated Partial Thromboplast Time 56H, Sodium Level 136, Potassium Level 4.5, Chloride Level 105, Carbon Dioxide Level 22, Anion Gap 10, Blood Urea Nitrogen 23H, Creatinine 0.9, Estimat Glomerular Filtration Rate > 60, Glucose Level 299H, Calcium Level 7.3L, Total Bilirubin 0.3, Aspartate Amino Transf (AST/SGOT) 28, Alanine Aminotransferase (ALT/SGPT) 20, Alkaline Phosphatase 75, Total Protein 6.6, Albumin 1.8L, Globulin 4.8, Albumin/Globulin Ratio 0.4L Height (Feet): 5 Height (Inches): 4.00 Weight (Pounds): 185 General Appearance: mild distress EENT: other - On BiPAP Cardiovascular: tachycardia Respiratory/Chest: decreased breath sounds Abdomen: distended Josafat Marquez MD Jun 09, 2020 10:23
--- NOTE | 2020-06-09 11:20 | NUR ---
NURSE NOTES: Dr. Nolasco updated of the patient status and remains on bipap with setting of 10/5 at fio2 of 100%. she remains talkative,alert, and is able to follows commands, she has a dry non productive cough while wearing the bipap mask, her face has tape to protect from redness related to the bipap.
--- NOTE | 2020-06-09 11:22 | NUR ---
Social Work This SW observed patient who is currently in the ICU, on Bi-pap. Patient appears A/O and responding to nursing (speaks only [place]). This SW also spoke with Son-in-law, Guy ([phone]) who explains patient resides with him, daughter (Ines) and their daughter, age 18. All are currently positive for COVID. Son in law anticipates patient to discharge back to their home, where she was independent prior. Family to provide support, as needed. Patients sonMendel (currently negative for COVID) does not live with them, can be reached at [phone]. Pending progress at this time. SW/CM to follow for any discharge planning needs, i.e 02 at needed. Patient was not using any DME prior and currently requesting full code, full treatment (does not have an Advance Directive).
[2020-06-09] MEDS: Cefepime HCl 2 GM in D5W 110 ML IV SCH (12:11)
--- NOTE | 2020-06-09 15:30 | NUR ---
NURSE NOTES: new bag of heparin bag hung and remains at rate of 14units/kg/hr at rate of 23.496ml/hr. next ptt is schedules for 0400 at 06/10/20.
[2020-06-09] MEDS ORDERED: Loading Dose:Remdesivir 200mg/NS 210ml IV SCH ×2 (16:00)
--- NOTE | 2020-06-09 16:45 | NUR ---
NURSE NOTES: repositioned in bed and provided oral care for dry mouth from the air and oxygen provided from the bipap machine.
--- NOTE | 2020-06-09 17:31 | Pulmonology Progress Note ---
Subjective ROS Limited/Unobtainable: Yes Interval Events: None new Constitutional: Reports: no symptoms HEENT: Repors: no symptoms Cardiovascular: Reports: no symptoms Gastrointestinal/Abdominal: Reports: no symptoms Genitourinary: Reports: no symptoms Neurologic: Reports: no symptoms Allergies: Coded Allergies: No Known Allergies (Unverified , 06/07/20) All Systems: reviewed and negative except above Objective Last 24 Hour Vital Signs Date Time Temp Pulse Resp B/P (MAP) Pulse Ox O2 Delivery O2 Flow Rate FiO2 06/09/20 16:00 100 06/09/20 16:00 100 33 140/77 (98) 99 06/09/20 15:06 99 32 98 100 06/09/20 15:00 97 32 140/94 (109) 99 06/09/20 14:00 99 27 133/82 (99) 99 06/09/20 13:00 103 30 139/90 (106) 98 06/09/20 12:00 100 06/09/20 12:00 98.1 101 32 137/70 (92) 100 06/09/20 12:00 99 06/09/20 12:00 Bi-pap 06/09/20 11:00 98 29 138/81 (100) 100 06/09/20 10:50 99 34 98 100 06/09/20 10:00 100 26 145/84 (104) 98 06/09/20 09:44 99 148/84 06/09/20 09:00 98 31 148/84 (105) 99 06/09/20 08:00 Bi-pap 06/09/20 08:00 100 06/09/20 08:00 97.4 97 34 138/81 (100) 99 06/09/20 08:00 100 06/09/20 07:00 101 35 135/81 (99) 06/09/20 07:00 101 40 100 100 06/09/20 06:00 92 25 141/84 (103) 06/09/20 05:00 Bi-pap 06/09/20 05:00 103 29 146/75 (98) 06/09/20 04:00 100 06/09/20 04:00 104 06/09/20 04:00 98.5 94 27 147/77 (100) 98 06/09/20 03:00 98 28 145/80 (101) 99 06/09/20 02:54 98 40 98 100 06/09/20 02:00 100 34 150/85 (106) 99 06/09/20 01:00 98 32 144/84 (104) 97 06/09/20 00:00 Bi-pap 06/09/20 00:00 97 06/09/20 00:00 100 06/09/20 00:00 96 32 149/75 (99) 97 06/08/20 23:00 99 33 141/81 (101) 95 06/08/20 22:53 100 39 96 100 06/08/20 22:00 101 34 143/81 (101) 98 06/08/20 21:00 97.8 98 39 137/84 (101) 98 06/08/20 20:00 100 06/08/20 20:00 102 42 135/79 (97) 97 06/08/20 20:00 Bi-pap 06/08/20 20:00 95 06/08/20 19:00 102 39 129/72 (91) 96 06/08/20 18:54 98 40 95 90 06/08/20 18:00 101 40 134/80 (98) 93 Intake and Output 06/08/20 06/09/20 19:00 07:00 Intake Total 2219.180 ml 1976.888 ml Output Total 830 ml 1050 ml Balance 1389.180 ml 926.888 ml Intake Oral 680 ml 730 ml IV Total 1479.180 ml 1246.888 ml Other 60 ml Output Urine Total 830 ml 1050 ml Objective 06/09/2020 patient seen in ICU; Full code General Appearance: no acute distress HEENT: normocephalic Respiratory: chest wall non-tender, other - tachypnea Cardiovascular: normal peripheral pulses Abdomen: normal bowel sounds Genitourinary: other - Flores Microbiology Date/Time Source Procedure Growth Status 06/07/20 13:00 Nasopharynx SARS-CoV-2 RdRp Gene Assay - Final Complete 06/07/20 13:00 Nasal Nares - Final Complete 06/07/20 13:00 Nasal Nares - Final Complete 06/07/20 13:00 Blood Blood Culture - Preliminary NO GROWTH AFTER 24 HOURS Resulted 06/07/20 12:45 Blood Blood Culture - Preliminary NO GROWTH AFTER 24 HOURS Resulted Laboratory Tests 06/09/20 04:23: White Blood Count 12.6#H, Red Blood Count 3.87L, Hemoglobin 11.6L, Hematocrit 34.6L, Mean Corpuscular Volume 89, Mean Corpuscular Hemoglobin 30.0, Mean Corpuscular Hemoglobin Concent 33.5, Red Cell Distribution Width 14.9H, Platelet Count 485H, Mean Platelet Volume 4.8L, Neutrophils (%) (Auto) , Lymphocytes (%) (Auto) , Monocytes (%) (Auto) , Eosinophils (%) (Auto) , Basophils (%) (Auto) , Differential Total Cells Counted 100, Neutrophils % (Manual) 87H, Lymphocytes % (Manual) 6L, Monocytes % (Manual) 7, Eosinophils % (Manual) 0, Basophils % (Manual) 0, Band Neutrophils 0, Platelet Estimate Adequate, Platelet Morphology Normal, Anisocytosis 1+, Activated Partial Thromboplast Time 56H, Sodium Level 136, Potassium Level 4.5, Chloride Level 105, Carbon Dioxide Level 22, Anion Gap 10, Blood Urea Nitrogen 23H, Creatinine 0.9, Estimat Glomerular Filtration Rate > 60, Glucose Level 299H, Calcium Level 7.3L, Total Bilirubin 0.3, Aspartate Amino Transf (AST/SGOT) 28, Alanine Aminotransferase (ALT/SGPT) 20, Alkaline Phosphatase 75, Total Protein 6.6, Albumin 1.8L, Globulin 4.8, Albumin/Globulin Ratio 0.4L 06/09/20 12:20: Activated Partial Thromboplast Time 85H Current Medications Medications (Trade) Dose Ordered Sig/Vicki Route PRN Reason Start Time Stop Time Status Last Admin Dose Admin Acetaminophen (Tylenol) 650 mg Q4H PRN ORAL Mild Pain (Pain Scale 1-3) 06/07/20 15:15 07/07/20 15:14 Acetaminophen (Tylenol) 650 mg Q4H PRN ORAL Temp >100.5 06/07/20 15:15 07/07/20 15:14 Albuterol/ Ipratropium (Combivent Respimat) 1 puff Q6H PRN INH Shortness of Breath 06/08/20 18:30 07/08/20 18:29 Amlodipine Besylate (Norvasc) 5 mg DAILY ORAL 06/08/20 09:00 07/08/20 08:59 06/09/20 09:44 Atorvastatin Calcium (Lipitor) 40 mg BEDTIME ORAL 06/07/20 21:00 09/05/20 20:59 06/08/20 20:57 Azithromycin 250 mg/Sodium Chloride 275 ml @ 275 mls/hr DAILY IV 06/08/20 09:00 06/12/20 15:15 06/09/20 09:43 Calcium Carbonate (Os-Javier) 500 mg BID ORAL 06/07/20 20:00 09/05/20 19:59 06/09/20 17:08 Cefepime HCl 2 gm/ Dextrose 110 ml @ 220 mls/hr Q24H IV 06/08/20 11:00 06/15/20 10:59 06/09/20 12:11 Dexamethasone Sodium Phosphate (Decadron 10mg/ ml Inj) 6 mg DAILY IV 06/08/20 09:00 06/16/20 09:00 06/09/20 09:45 Dextrose (Dextrose 50%) 25 ml Q30M PRN IV Hypoglycemia 06/08/20 12:30 09/06/20 12:29 Dextrose (Dextrose 50%) 50 ml Q30M PRN IV Hypoglycemia 06/08/20 12:30 09/06/20 12:29 Docusate Sodium (Colace) 100 mg EVERY 12 HOURS ORAL 06/07/20 21:00 07/07/20 20:59 06/09/20 09:44 Heparin Sodium/ Dextrose 500 ml @ 23.496 mls/ hr ADJUST PER PROTOCOL IV 06/08/20 17:45 07/08/20 17:44 06/09/20 15:25 Insulin Aspart (NovoLOG) BEFORE MEALS AND HS SUBQ 06/08/20 16:30 09/06/20 16:29 06/09/20 12:13 Lorazepam (Ativan 2mg/ml 1ml) 0.5 mg Q4H PRN IV For Anxiety 06/07/20 15:15 06/14/20 15:14 Morphine Sulfate (Morphine Sulfate) 2 mg Q4H PRN IVP Moderate Pain (Pain Scale 4-6) 06/07/20 15:15 06/14/20 15:14 Ondansetron HCl (Zofran) 4 mg Q6H PRN IVP Nausea & Vomiting 06/07/20 15:15 07/07/20 15:14 Pantoprazole (Protonix) 40 mg EVERY 12 HOURS IVP 06/07/20 21:00 1/4/21 20:59 06/09/20 09:43 Polyethylene Glycol (Miralax) 17 gm DAILYPRN PRN ORAL Constipation 06/07/20 15:15 07/07/20 15:14 Remdesivir 100 mg/ Sodium Chloride 250 ml @ 250 mls/hr Q24H IV 06/10/20 16:00 06/13/20 16:59 Remdesivir 200 mg/ Sodium Chloride 250 ml @ 125 mls/hr ONCE IV 06/09/20 16:00 06/09/20 17:59 06/09/20 17:08 Sodium Chloride 1,000 ml @ 75 mls/hr [id number] IV 06/07/20 15:00 07/07/20 14:59 06/09/20 09:44 Temazepam (Restoril) 15 mg HSPRN PRN ORAL Insomnia 06/07/20 15:15 06/14/20 15:14 Assessment/Plan Assessment/Plan 1. COVID-19 pneumonia. - pt would benefit from steroids and remdesivir - Defer use of remdesivir to ID; Will start today - Cont decadron - Respiratory isolation 2. Hypoxemia. - Cont BiPAP 3. Hypertension. 4. Diabetes mellitus. 5. Respiratory Failure. Trend ABG's. - pH 7.4 -> 7.5 - pCO2 32.8 -> 25.3 - pO2 71.8 -> 74.8 - HCO3 20.6 -> 18.5 DVT ppx - on heparin - 06/09/2020 venous duplex neg for DVT The care for this patient was discussed with my supervising physician The history of Devi Ratliff has been reviewed and management options for her have been examined and discussed by Francis Nolasco. I have personally examined and interviewed the patient. Time spent for this case was approximately 31 minutes Gabriel Andrea Jun 09, 2020 17:31 Francis Nolasco MD Jun 09, 2020 17:41
--- NOTE | 2020-06-09 18:00 | NUR ---
NURSE NOTES: Patient blood sugar remains at 301 and covered with NovoLog sliding scale. she remains awake and talkative, she is able to talk clearly in Czech, she is able to help with repositioned and sliding in bed. remains on bipap at 10/5 with fio2 of 100%. she is saturating at 99-100%. both peripheral IV remains patent and flush with no oozing or swelling noted.
--- NOTE | 2020-06-09 19:36 | NUR ---
NURSE HAND-OFF REPORT: Latest Vital Signs: Temperature 98.4 , Pulse 99 , B/P 145 /81 , Respiratory Rate 36 , O2 SAT 100 , Bi-pap, O2 Flow Rate 10.0 . Vital Sign Comment: EKG Rhythm: Sinus Rhythm Rhythm change?: N MD Notified?: - MD Response: Latest Griffiths Fall Score: 35 Fall Risk: Medium Risk Safety Measures: Call light Within Reach, Bed Alarm Zone 1, Side Rails Side Rails x3, Bed position Low and Locked. Fall Precautions: Yellow Socks Door Sign Patient Fall Education Report given to ANAYELI Saleh. endorsed next ptt will be done on 06/10/20 at 0400. she remains on bipap at 04/07 with FIo2 of 100%.
--- NOTE | 2020-06-09 20:00 | NUR ---
NURSE NOTES: received report from andrew varela pt awake and alert follows command no c/o pain reposition and suction no acute restp distress oo p-pap 10/5 o2 sat 10o% iv iv infusing well site on heparin drip at 14unit/kg/hr urinary output good
[2020-06-09] MEDS: Atorvastatin 20mg tab ORAL SCH (20:44)
--- NOTE | 2020-06-09 22:00 | NUR ---
NURSE NOTES: reposition and suction
[2020-06-10] VITALS (24 sets, daily range): BP systolic 123–157; BP diastolic 64–92
--- NOTE | 2020-06-10 | NUR ---
NURSE NOTES: ASLEEP CONDITION UN CHANGE
--- NOTE | 2020-06-10 04:00 | NUR ---
NURSE NOTES: COMPLETE BED BATH REPOSITION AND SUCTION
[2020-06-10 04:58] LABS: HEMATOCRIT 32.2 % (37.0-47.0); HEMOGLOBIN 11.3 G/DL (12.0-16.0); MEAN CORPUSCULAR VOLUME 84 FL (80-99); PLATELET COUNT 524 K/UL (150-450); RED BLOOD COUNT 3.85 M/UL (4.20-5.40); RED CELL DISTRIBUTION WIDTH 15.3 % (11.6-14.8); WHITE BLOOD COUNT 12.8 K/UL (4.8-10.8)
--- NOTE | 2020-06-10 05:46 | NUR ---
NURSE NOTES: ptt result 85 no change ptt at 0400
[2020-06-10 05:47] LABS: ALANINE AMINOTRANSFERASE 27 U/L (12-78); ALBUMIN 1.9 G/DL (3.4-5.0); ALBUMIN/GLOBULIN RATIO 0.4 (1.0-2.7); ALKALINE PHOSPHATASE 79 U/L (46-116); ASPARTATE AMINO TRANSFERASE 26 U/L (15-37); BILIRUBIN,DIRECT 0.1 MG/DL (0.0-0.3); BILIRUBIN,TOTAL 0.3 MG/DL (0.2-1.0); BLOOD UREA NITROGEN 21 mg/dL (7-18); CALCIUM 7.1 MG/DL (8.5-10.1); CARBON DIOXIDE 22 MMOL/L (21-32); CHLORIDE 103 MMOL/L (98-107); CREATININE 0.8 MG/DL (0.55-1.30); POTASSIUM 3.7 MMOL/L (3.5-5.1); SODIUM 136 MMOL/L (136-145)
[2020-06-10] MEDS: NovoLOG Insulin Flexpen SUBQ SCH ×4 (06:06→22:39)
--- NOTE | 2020-06-10 07:24 | NUR ---
NURSE HAND-OFF REPORT: Latest Vital Signs: Temperature 98.2 , Pulse 91 , B/P 151 /78 , Respiratory Rate 28 , O2 SAT 100 , Bi-pap, O2 Flow Rate 10.0 . Vital Sign Comment: EKG Rhythm: Sinus Rhythm Rhythm change?: N MD Notified?: - MD Response: Latest Griffiths Fall Score: 35 Fall Risk: Medium Risk Safety Measures: Call light Within Reach, Bed Alarm Zone 1, Side Rails Side Rails x3, Bed position Low and Locked. Fall Precautions: Yellow Socks Door Sign Patient Fall Education Report given to araceli varela using sbar.
--- NOTE | 2020-06-10 07:40 | NUR ---
NURSE NOTES: RECEIVED REPORT FROM SYLVIA. RN. PT IN BED, AWAKE, URDU SPEAKING. A/OX3-4. PUPILS 3MM ISAIAH. VERBAL. FOLLOWS COMMANDS. COOPERATIVE. SR- ST. ON MONITOR. ON BIPAP 10/5, 90%. AARON SOUNDS DIMINISHED. NON PRODUCTIVE COUGH. WHEN EATS MEALS PT ON MASK. DIET RENAL, REGULAR. ABDOMEN SOFT, NON TENDER. NO BM AT THIS TIME. MERRITT DRAINING LIGHT KIRK URINE. ACCU CHK Q6HR. SKIN INTACT. RT HAND 222G, RT AC 20G. DRIPS HEPARIN 14U/KG/MIN, NS AT 75ML/HR. AX TEMP 98.6. NO C/O PAIN. CAP REFILL <3SEC, SKIN TURGOR LOOSE. BILATERAL RADIAL AND PEDAL PULSES STRONG. NO JVD. PT IN AIRBORNE ISOLATION. BED ALARM ON, BED LOCKED IN LOW POSITION. WILL CONTINUE TO MONITOR
[2020-06-10] MEDS: Pantoprazole Inj IVP SCH ×2 (08:22→22:37)
[2020-06-10] MEDS: Azithromycin 250 MG in NS 275 ML IV SCH (08:22)
[2020-06-10] MEDS: dexAMETHasone 10mg/ml Inj IV SCH (08:23)
[2020-06-10] MEDS: Os-Cal (Oyster Shell) 500mg tab ORAL SCH ×2 (08:23→17:53)
[2020-06-10] MEDS: Docusate 100mg cap ORAL SCH ×2 (08:24→22:37)
--- NOTE | 2020-06-10 09:00 | Infectious Diseases Prog Note ---
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 KEVIN, improved BLE US neg for DVT 06/09 Obesity DM2 HTN Plan: Cont remdesivir #2/ (started late given KEVIN on admission) Cont dexamethasone 6mg daily #/ Cont empiric cefepime and Azithromycin #4/5 This institution unfortunately does not have convalescent plasma available, although as pt 1 week out from dx unlikely to benefit at this point Monitor CBC/CMP Monitor temp curve, hemodynamics Monitor resp status D/w RN Thank you for this consult. [facility] will continue to follow. Subjective Allergies: Coded Allergies: No Known Allergies (Unverified , 06/07/20) AF WBC stable at 12 on steroids NAD on BiPAP When on NRB for eating desats to 70s Objective Last 24 Hour Vital Signs Date Time Temp Pulse Resp B/P (MAP) Pulse Ox O2 Delivery O2 Flow Rate FiO2 06/10/20 08:23 102 144/77 06/10/20 07:11 92 28 99 100 06/10/20 07:00 91 28 151/78 (102) 100 06/10/20 06:00 88 30 148/81 (103) 98 06/10/20 05:00 90 30 152/85 (107) 99 06/10/20 04:00 Bi-pap 06/10/20 04:00 100 06/10/20 04:00 98.2 104 31 157/89 (111) 99 06/10/20 04:00 100 06/10/20 03:19 94 31 97 100 06/10/20 03:00 94 26 154/90 (111) 97 06/10/20 02:00 94 29 153/89 (110) 98 06/10/20 01:00 96 27 149/92 (111) 98 06/10/20 00:00 100 06/10/20 00:00 98.2 91 27 151/86 (107) 98 06/10/20 00:00 Bi-pap 06/09/20 23:00 96 29 150/85 (106) 99 06/09/20 22:35 96 31 97 100 06/09/20 22:00 96 29 150/87 (108) 99 06/09/20 21:00 95 28 150/89 (109) 99 06/09/20 20:00 100 06/09/20 20:00 98.6 96 27 147/78 (101) 99 06/09/20 20:00 96 06/09/20 20:00 Bi-pap 06/09/20 19:17 99 36 100 100 06/09/20 19:00 97 34 147/82 (103) 100 06/09/20 18:18 100 06/09/20 18:00 97 25 145/81 (102) 100 06/09/20 18:00 101 27 145/81 (102) 99 06/09/20 17:00 90 24 147/80 (102) 99 06/09/20 17:00 98 29 147/80 (102) 99 06/09/20 16:01 98.4 100 33 140/77 (98) 99 06/09/20 16:00 Bi-pap 06/09/20 16:00 100 06/09/20 16:00 100 33 140/77 (98) 99 06/09/20 15:06 99 32 98 100 06/09/20 15:00 97 32 140/94 (109) 99 06/09/20 14:00 99 27 133/82 (99) 99 06/09/20 13:00 103 30 139/90 (106) 98 06/09/20 12:00 100 06/09/20 12:00 98.1 101 32 137/70 (92) 100 06/09/20 12:00 99 06/09/20 12:00 Bi-pap 06/09/20 11:00 98 29 138/81 (100) 100 06/09/20 10:50 99 34 98 100 06/09/20 10:00 100 26 145/84 (104) 98 06/09/20 09:44 99 148/84 06/09/20 09:00 98 31 148/84 (105) 99 Height (Feet): 5 Height (Inches): 4.00 Weight (Pounds): 185 Gen: NAD HEENT: NCAT Pulm: BL chest rise Abd: Non-distended Ext: No c/c/e Skin: No visible rashes Neuro: Awake Microbiology Date/Time Source Procedure Growth Status 06/07/20 13:00 Nasopharynx SARS-CoV-2 RdRp Gene Assay - Final Complete 06/07/20 13:00 Nasal Nares - Final Complete 06/07/20 13:00 Nasal Nares - Final Complete 06/07/20 13:00 Blood Blood Culture - Preliminary NO GROWTH AFTER 48 HOURS Resulted 06/07/20 12:45 Blood Blood Culture - Preliminary NO GROWTH AFTER 48 HOURS Resulted Laboratory Tests Test 06/09/20 12:20 06/10/20 04:10 Activated Partial Thromboplast Time 85 SEC (23-33) H 85 SEC (23-33) H White Blood Count 12.8 K/UL (4.8-10.8) H Red Blood Count 3.85 M/UL (4.20-5.40) L Hemoglobin 11.3 G/DL (12.0-16.0) L Hematocrit 32.2 % (37.0-47.0) L Mean Corpuscular Volume 84 FL (80-99) Mean Corpuscular Hemoglobin 29.3 PG (27.0-31.0) Mean Corpuscular Hemoglobin Concent 35.0 G/DL (32.0-36.0) Red Cell Distribution Width 15.3 % (11.6-14.8) H Platelet Count 524 K/UL (150-450) H Mean Platelet Volume 4.8 FL (6.5-10.1) L Neutrophils (%) (Auto) % (45.0-75.0) Lymphocytes (%) (Auto) % (20.0-45.0) Monocytes (%) (Auto) % (1.0-10.0) Eosinophils (%) (Auto) % (0.0-3.0) Basophils (%) (Auto) % (0.0-2.0) Sodium Level 136 MMOL/L (136-145) Potassium Level 3.7 MMOL/L (3.5-5.1) Chloride Level 103 MMOL/L (98-107) Carbon Dioxide Level 22 MMOL/L (21-32) Blood Urea Nitrogen 21 mg/dL (7-18) H Creatinine 0.8 MG/DL (0.55-1.30) Estimat Glomerular Filtration Rate > 60 mL/min (>60) Glucose Level 235 MG/DL (74-106) H Calcium Level 7.1 MG/DL (8.5-10.1) L Total Bilirubin 0.3 MG/DL (0.2-1.0) Direct Bilirubin 0.1 MG/DL (0.0-0.3) Aspartate Amino Transf (AST/SGOT) 26 U/L (15-37) Alanine Aminotransferase (ALT/SGPT) 27 U/L (12-78) Alkaline Phosphatase 79 U/L (46-116) Total Protein 6.5 G/DL (6.4-8.2) Albumin 1.9 G/DL (3.4-5.0) L Globulin 4.6 g/dL Albumin/Globulin Ratio 0.4 (1.0-2.7) L Current Medications Medications (Trade) Dose Ordered Sig/Vicki Route PRN Reason Start Time Stop Time Status Last Admin Dose Admin Acetaminophen (Tylenol) 650 mg Q4H PRN ORAL Mild Pain (Pain Scale 1-3) 06/07/20 15:15 07/07/20 15:14 Acetaminophen (Tylenol) 650 mg Q4H PRN ORAL Temp >100.5 06/07/20 15:15 07/07/20 15:14 Albuterol/ Ipratropium (Combivent Respimat) 1 puff Q6H PRN INH Shortness of Breath 06/08/20 18:30 07/08/20 18:29 Amlodipine Besylate (Norvasc) 5 mg DAILY ORAL 06/08/20 09:00 07/08/20 08:59 06/10/20 08:23 Atorvastatin Calcium (Lipitor) 40 mg BEDTIME ORAL 06/07/20 21:00 09/05/20 20:59 06/09/20 20:44 Azithromycin 250 mg/Sodium Chloride 275 ml @ 275 mls/hr DAILY IV 06/08/20 09:00 06/12/20 15:15 06/10/20 08:22 Calcium Carbonate (Os-Javier) 500 mg BID ORAL 06/07/20 20:00 09/05/20 19:59 06/10/20 08:23 Cefepime HCl 2 gm/ Dextrose 110 ml @ 220 mls/hr Q24H IV 06/08/20 11:00 06/15/20 10:59 06/09/20 12:11 Dexamethasone Sodium Phosphate (Decadron 10mg/ ml Inj) 6 mg DAILY IV 06/08/20 09:00 06/16/20 09:00 06/10/20 08:23 Dextrose (Dextrose 50%) 25 ml Q30M PRN IV Hypoglycemia 06/08/20 12:30 09/06/20 12:29 Dextrose (Dextrose 50%) 50 ml Q30M PRN IV Hypoglycemia 06/08/20 12:30 09/06/20 12:29 Docusate Sodium (Colace) 100 mg EVERY 12 HOURS ORAL 06/07/20 21:00 07/07/20 20:59 06/10/20 08:24 Heparin Sodium/ Dextrose 500 ml @ 23.496 mls/ hr ADJUST PER PROTOCOL IV 06/08/20 17:45 07/08/20 17:44 06/09/20 15:25 Insulin Aspart (NovoLOG) BEFORE MEALS AND HS SUBQ 06/08/20 16:30 09/06/20 16:29 06/10/20 06:06 Lorazepam (Ativan 2mg/ml 1ml) 0.5 mg Q4H PRN IV For Anxiety 06/07/20 15:15 06/14/20 15:14 Morphine Sulfate (Morphine Sulfate) 2 mg Q4H PRN IVP Moderate Pain (Pain Scale 4-6) 06/07/20 15:15 06/14/20 15:14 Ondansetron HCl (Zofran) 4 mg Q6H PRN IVP Nausea & Vomiting 06/07/20 15:15 07/07/20 15:14 Pantoprazole (Protonix) 40 mg EVERY 12 HOURS IVP 06/07/20 21:00 07/07/20 20:59 06/10/20 08:22 Polyethylene Glycol (Miralax) 17 gm DAILYPRN PRN ORAL Constipation 06/07/20 15:15 07/07/20 15:14 Remdesivir 100 mg/ Sodium Chloride 250 ml @ 250 mls/hr Q24H IV 06/10/20 16:00 06/13/20 16:59 Sodium Chloride 1,000 ml @ 75 mls/hr [id number] IV 06/07/20 15:00 07/07/20 14:59 06/09/20 20:42 Temazepam (Restoril) 15 mg HSPRN PRN ORAL Insomnia 06/07/20 15:15 06/14/20 15:14 Nicolasa Del Cid M.D. Jun 10, 2020 09:00
--- NOTE | 2020-06-10 09:17 | General Progress Note ---
Subjective Date patient seen: Jun 10, 2020 Time patient seen: 11:10 ROS Limited/Unobtainable: Yes Allergies: Coded Allergies: No Known Allergies (Unverified , 06/07/20) Subjective Patient is on BIPAP. She feels short of breath. Denies pain. Tolerating small bites of food. Objective Last 24 Hour Vital Signs Date Time Temp Pulse Resp B/P (MAP) Pulse Ox O2 Delivery O2 Flow Rate FiO2 06/10/20 08:23 102 144/77 06/10/20 07:11 92 28 99 100 06/10/20 07:00 91 28 151/78 (102) 100 06/10/20 06:00 88 30 148/81 (103) 98 06/10/20 05:00 90 30 152/85 (107) 99 06/10/20 04:00 Bi-pap 06/10/20 04:00 100 06/10/20 04:00 98.2 104 31 157/89 (111) 99 06/10/20 04:00 100 06/10/20 03:19 94 31 97 100 06/10/20 03:00 94 26 154/90 (111) 97 06/10/20 02:00 94 29 153/89 (110) 98 06/10/20 01:00 96 27 149/92 (111) 98 06/10/20 00:00 100 06/10/20 00:00 98.2 91 27 151/86 (107) 98 06/10/20 00:00 Bi-pap 06/09/20 23:00 96 29 150/85 (106) 99 06/09/20 22:35 96 31 97 100 06/09/20 22:00 96 29 150/87 (108) 99 06/09/20 21:00 95 28 150/89 (109) 99 06/09/20 20:00 100 06/09/20 20:00 98.6 96 27 147/78 (101) 99 06/09/20 20:00 96 06/09/20 20:00 Bi-pap 06/09/20 19:17 99 36 100 100 06/09/20 19:00 97 34 147/82 (103) 100 06/09/20 18:18 100 06/09/20 18:00 97 25 145/81 (102) 100 06/09/20 18:00 101 27 145/81 (102) 99 06/09/20 17:00 90 24 147/80 (102) 99 06/09/20 17:00 98 29 147/80 (102) 99 06/09/20 16:01 98.4 100 33 140/77 (98) 99 06/09/20 16:00 Bi-pap 06/09/20 16:00 100 06/09/20 16:00 100 33 140/77 (98) 99 06/09/20 15:06 99 32 98 100 06/09/20 15:00 97 32 140/94 (109) 99 06/09/20 14:00 99 27 133/82 (99) 99 06/09/20 13:00 103 30 139/90 (106) 98 06/09/20 12:00 100 06/09/20 12:00 98.1 101 32 137/70 (92) 100 06/09/20 12:00 99 06/09/20 12:00 Bi-pap 06/09/20 11:00 98 29 138/81 (100) 100 06/09/20 10:50 99 34 98 100 06/09/20 10:00 100 26 145/84 (104) 98 06/09/20 09:44 99 148/84 Intake and Output 06/09/20 06/10/20 19:00 07:00 Intake Total 2246.4480 ml 1330.448 ml Output Total 1380 ml 1800 ml Balance 866.4480 ml -469.552 ml Intake Oral 680 ml 200 ml IV Total 1536.4480 ml 1130.448 ml Other 30 ml Output Urine Total 1380 ml 1800 ml Laboratory Tests 06/09/20 12:20: Activated Partial Thromboplast Time 85H 06/10/20 04:10: Activated Partial Thromboplast Time 85H, White Blood Count 12.8H, Red Blood Count 3.85L, Hemoglobin 11.3L, Hematocrit 32.2L, Mean Corpuscular Volume 84, Mean Corpuscular Hemoglobin 29.3, Mean Corpuscular Hemoglobin Concent 35.0, Red Cell Distribution Width 15.3H, Platelet Count 524H, Mean Platelet Volume 4.8L, Neutrophils (%) (Auto) , Lymphocytes (%) (Auto) , Monocytes (%) (Auto) , Eosinophils (%) (Auto) , Basophils (%) (Auto) , Sodium Level 136, Potassium Level 3.7, Chloride Level 103, Carbon Dioxide Level 22, Blood Urea Nitrogen 21H, Creatinine 0.8, Estimat Glomerular Filtration Rate > 60, Glucose Level 235H, Calcium Level 7.1L, Total Bilirubin 0.3, Direct Bilirubin 0.1, Aspartate Amino Transf (AST/SGOT) 26, Alanine Aminotransferase (ALT/SGPT) 27, Alkaline Phosphatase 79, Total Protein 6.5, Albumin 1.9L, Globulin 4.6, Albumin/Globulin Ratio 0.4L Height (Feet): 5 Height (Inches): 4.00 Weight (Pounds): 185 General Appearance: moderate distress EENT: PERRL/EOMI Neck: non-tender Cardiovascular: normal rate Respiratory/Chest: decreased breath sounds Abdomen: soft Edema: trace edema 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 Nolasco. Continue supportive care. ABG pending today. Continue Heparin gtt as D dimer elevated on admission. Covid 19 protocol. ID consultation with Dr. Del Cid for Remdisivir appreciated. Cont remdesivir #2/5 (started late given KEVIN on admission) Cont dexamethasone 6mg daily #4/10 Cont empiric cefepime and Azithromycin #4/5 No access to convalescent plasma at [facility] and data showed no survival benefit. HHN prn # Renal failure etiology undetermined Renal consult Dr. Rubio Renal US and TTE pending Renal lytes and IVF per renal team Monitor I/O with Flores Avoid nephrotoxins # Hypertensive heart disease Resume Amlodipine # T2DM Stop Metformin due to hospitalization ISS Monitor BG Add low dose Lantus 5 units qhs # HLD Continue Statin Diet: Trials of PO intake as tolerated without oxygen desaturation. Cardiac diet DVT ppx with Heparin GI ppx with PPI Actv as tolerated FULL CODE Kavon Yuen MD Jun 10, 2020 09:17
[2020-06-10 10:39] LABS: PHOSPHORUS 2.1 MG/DL (2.5-4.9)
--- NOTE | 2020-06-10 11:04 | NUR ---
NURSE NOTES: MD. MILIAN HERE TO SE PT. PT WAS ON BIPAP UNTIL AM MEAL. PT PLACED ON MASK WHILE EATING, SOME COUGHING AND REPLACED BIPAP FOR INCREASED RATE. ORDER FOR ABG TODAY. CONTINUE TO TRY TO GET OFF BIPAP.
--- NOTE | 2020-06-10 11:50 | NUR ---
CASE MANAGEMENT:REVIEW 06/10/20 SI: COVID PNEUMONIA. RESPIRATORY FAILURE 98.6 103 30 141/77 99% ON BIPAP W/100% FIO2 WBC+12.8 BUN+21 IS: IV REMDESIVIR Q24 (2/) IV DECADRON Q24 IV CEFEPIME Q24 IV AZITHROMYCIN QD IVF@75/HR : ICU STATUS DCP: FROM HOME
[2020-06-10] MEDS: Cefepime HCl 2 GM in D5W 110 ML IV SCH (11:53)
[2020-06-10] MEDS: Morphine Sulfate 2mg/ml Inj(IV/IM USE ONLY) IVP PRN (11:56)
--- NOTE | 2020-06-10 11:56 | NUR ---
NURSE NOTES: LATE ENTRY: PT C/O PAIN IN FINGERS AND KNEES 12/11. PT MOANING AND RUBBING AREA, MORPHINE 2MG IVP FOR PAIN 4-12/11. BP STABLE. PT RESTING IN BED. WILL CONTINUE TO MONITOR PT.
--- NOTE | 2020-06-10 12:50 | NUR ---
NURSE NOTES: MD. MURPHY HERE TO SEE PT. WAS INFORMED OF PT EATING 15-20% IF MEAL BEFORE GETTING TIRED. PLACED ON NON REBREATHER FOR MEALS. SOME COUGHING NOTED. RECOMMENDATION FOR SOFT MECHANICAL . LABS TODAY BUN/CRE 21/0.8, ON HEP DRIP AT 14U/KG/MIN. AX TEMP 98.9. ABG ALREADY ORDERED. ADMINISTERED MORPHINE FOR ARM PAIN. MONITORING PT CLOSELY.
--- NOTE | 2020-06-10 13:38 | NUR ---
NURSE NOTES: called R.T for ABG, informed that pt requires pressure dressing, likely to bleed. stated understanding.
[2020-06-10] MEDS: Maintenance Dose:Remdesivir 100mg/NS 230ml x 4 Doses IV SCH ×2 (16:00)
[2020-06-10] MEDS ORDERED: ALBUTEROL SULF8.5 G1 INH (16:10)
[2020-06-10] MEDS ORDERED: VITAMIN D310 MC1 PO (16:10)
[2020-06-10] MEDS ORDERED: ATORVASTATIN CA20 MG ORAL (16:10)
[2020-06-10] MEDS ORDERED: LANTUS SOL100 UNIT/1 SUBQ (16:10)
--- NOTE | 2020-06-10 16:10 | Nephrology Progress Note ---
Assessment/Plan Problem List: (1) Acute respiratory disease due to COVID-19 virus (2) Renal failure (3) Hyperkalemia (4) COVID-19 (5) Diabetic nephropathy Assessment: 2+ proteinuria (6) Dehydration Assessment Renal failure most likely acute on chronic Hyperkalemia, hyponatremia Diabetes mellitus, hyperglycemia History of hypertension Plan June 10: Seen in ICU. Discussed with RN. Remains on BiPAP. Labs reviewed. Electrolyte abnormalities addressed. June 09: Patient in ICU. Full code. On BiPAP. Labs reviewed. Renal parameters stable. Continue per consultants. Continue to monitor renal parameters. June 08: Patient seen in ICU. Full code. On BiPAP. Has Flores catheter. Labs reviewed. Electrolyte abnormalities improved. Serum creatinine lower. Waiting for 2D echo and kidney ultrasound results. Discussed with RN. June 07: Flores catheter Slow hydration Urine studies Avoid nephrotoxic's Pulmonary support 2D echo Kidney ultrasound Per orders Subjective ROS Limited/Unobtainable: Yes Objective Objective Last 24 Hour Vital Signs Date Time Temp Pulse Resp B/P (MAP) Pulse Ox O2 Delivery O2 Flow Rate FiO2 06/10/20 15:51 94 24 15.0 100 06/10/20 15:00 94 30 129/71 (90) 99 06/10/20 14:00 93 30 131/74 (93) 97 06/10/20 13:00 95 29 132/64 (86) 97 06/10/20 12:12 15.0 06/10/20 12:00 Non-Rebreather 15.0 06/10/20 12:00 100 06/10/20 12:00 98.8 92 30 140/87 (104) 100 06/10/20 11:00 96 29 123/69 (87) 98 06/10/20 10:55 94 36 99 100 06/10/20 10:10 100 06/10/20 10:00 94 29 135/75 (95) 96 06/10/20 09:52 15.0 06/10/20 09:00 96 27 151/90 (110) 94 06/10/20 08:23 102 144/77 06/10/20 08:00 103 06/10/20 08:00 98.6 89 30 141/77 (98) 99 06/10/20 08:00 100 06/10/20 08:00 Bi-pap 06/10/20 07:11 92 28 99 100 06/10/20 07:00 91 28 151/78 (102) 100 06/10/20 06:00 88 30 148/81 (103) 98 06/10/20 05:00 90 30 152/85 (107) 99 06/10/20 04:00 Bi-pap 06/10/20 04:00 100 06/10/20 04:00 98.2 104 31 157/89 (111) 99 06/10/20 04:00 100 06/10/20 03:19 94 31 97 100 06/10/20 03:00 94 26 154/90 (111) 97 06/10/20 02:00 94 29 153/89 (110) 98 06/10/20 01:00 96 27 149/92 (111) 98 06/10/20 00:00 100 06/10/20 00:00 98.2 91 27 151/86 (107) 98 06/10/20 00:00 Bi-pap 06/09/20 23:00 96 29 150/85 (106) 99 06/09/20 22:35 96 31 97 100 06/09/20 22:00 96 29 150/87 (108) 99 06/09/20 21:00 95 28 150/89 (109) 99 06/09/20 20:00 100 06/09/20 20:00 98.6 96 27 147/78 (101) 99 06/09/20 20:00 96 06/09/20 20:00 Bi-pap 06/09/20 19:17 99 36 100 100 06/09/20 19:00 97 34 147/82 (103) 100 06/09/20 18:18 100 06/09/20 18:00 97 25 145/81 (102) 100 06/09/20 18:00 101 27 145/81 (102) 99 06/09/20 17:00 90 24 147/80 (102) 99 06/09/20 17:00 98 29 147/80 (102) 99 Intake and Output 06/09/20 06/10/20 18:59 06:59 Intake Total 2171.4480 ml 1428.944 ml Output Total 1480 ml 1700 ml Balance 691.4480 ml -271.056 ml Intake Oral 680 ml 200 ml IV Total 1461.4480 ml 1228.944 ml Other 30 ml Output Urine Total 1480 ml 1700 ml Current Medications Medications (Trade) Dose Ordered Sig/Vicki Route PRN Reason Start Time Stop Time Status Last Admin Dose Admin Acetaminophen (Tylenol) 650 mg Q4H PRN ORAL Mild Pain (Pain Scale 1-3) 06/07/20 15:15 07/07/20 15:14 Acetaminophen (Tylenol) 650 mg Q4H PRN ORAL Temp >100.5 06/07/20 15:15 07/07/20 15:14 Albuterol/ Ipratropium (Combivent Respimat) 1 puff Q6H PRN INH Shortness of Breath 06/08/20 18:30 07/08/20 18:29 Amlodipine Besylate (Norvasc) 5 mg DAILY ORAL 06/08/20 09:00 07/08/20 08:59 06/10/20 08:23 Atorvastatin Calcium (Lipitor) 40 mg BEDTIME ORAL 06/07/20 21:00 09/05/20 20:59 06/09/20 20:44 Azithromycin 250 mg/Sodium Chloride 275 ml @ 275 mls/hr DAILY IV 06/08/20 09:00 06/12/20 15:15 06/10/20 08:22 Calcium Carbonate (Os-Javier) 500 mg BID ORAL 06/07/20 20:00 09/05/20 19:59 06/10/20 08:23 Cefepime HCl 2 gm/ Dextrose 110 ml @ 220 mls/hr Q24H IV 06/08/20 11:00 06/15/20 10:59 06/10/20 11:53 Dexamethasone Sodium Phosphate (Decadron 10mg/ ml Inj) 6 mg DAILY IV 06/08/20 09:00 06/16/20 09:00 06/10/20 08:23 Dextrose (Dextrose 50%) 25 ml Q30M PRN IV Hypoglycemia 06/08/20 12:30 09/06/20 12:29 Dextrose (Dextrose 50%) 50 ml Q30M PRN IV Hypoglycemia 06/08/20 12:30 09/06/20 12:29 Docusate Sodium (Colace) 100 mg EVERY 12 HOURS ORAL 06/07/20 21:00 07/07/20 20:59 06/10/20 08:24 Heparin Sodium/ Dextrose 500 ml @ 23.496 mls/ hr ADJUST PER PROTOCOL IV 06/08/20 17:45 07/08/20 17:44 06/09/20 15:25 Insulin Aspart (NovoLOG) BEFORE MEALS AND HS SUBQ 06/08/20 16:30 09/06/20 16:29 06/10/20 12:12 Lorazepam (Ativan 2mg/ml 1ml) 0.5 mg Q4H PRN IV For Anxiety 06/07/20 15:15 06/14/20 15:14 Morphine Sulfate (Morphine Sulfate) 2 mg Q4H PRN IVP Moderate Pain (Pain Scale 4-6) 06/07/20 15:15 06/14/20 15:14 06/10/20 11:56 Ondansetron HCl (Zofran) 4 mg Q6H PRN IVP Nausea & Vomiting 06/07/20 15:15 07/07/20 15:14 Pantoprazole (Protonix) 40 mg EVERY 12 HOURS IVP 06/07/20 21:00 07/07/20 20:59 06/10/20 08:22 Polyethylene Glycol (Miralax) 17 gm DAILYPRN PRN ORAL Constipation 06/07/20 15:15 07/07/20 15:14 Remdesivir 100 mg/ Sodium Chloride 250 ml @ 250 mls/hr Q24H IV 06/10/20 16:00 06/13/20 16:59 Sodium Chloride 1,000 ml @ 75 mls/hr [id number] IV 06/07/20 15:00 07/07/20 14:59 06/10/20 09:43 Temazepam (Restoril) 15 mg HSPRN PRN ORAL Insomnia 06/07/20 15:15 06/14/20 15:14 Laboratory Tests 06/10/20 04:10: White Blood Count 12.8H, Red Blood Count 3.85L, Hemoglobin 11.3L, Hematocrit 32.2L, Mean Corpuscular Volume 84, Mean Corpuscular Hemoglobin 29.3, Mean Corpuscular Hemoglobin Concent 35.0, Red Cell Distribution Width 15.3H, Platelet Count 524H, Mean Platelet Volume 4.8L, Neutrophils (%) (Auto) , Lymphocytes (%) (Auto) , Monocytes (%) (Auto) , Eosinophils (%) (Auto) , Basophils (%) (Auto) , Activated Partial Thromboplast Time 85H, Sodium Level 136, Potassium Level 3.7, Chloride Level 103, Carbon Dioxide Level 22, Blood Urea Nitrogen 21H, Creatinine 0.8, Estimat Glomerular Filtration Rate > 60, Glucose Level 235H, Calcium Level 7.1L, Phosphorus Level 2.1L, Magnesium Level 1.7L, Total Bilirubin 0.3, Direct Bilirubin 0.1, Aspartate Amino Transf (AST/SGOT) 26, Alanine Aminotransferase (ALT/SGPT) 27, Alkaline Phosphatase 79, Total Protein 6.5, Albumin 1.9L, Globulin 4.6, Albumin/Globulin Ratio 0.4L 06/10/20 13:44: Arterial Blood pH 7.451H, Arterial Blood Partial Pressure CO2 30.3L, Arterial Blood Partial Pressure O2 90.9, Arterial Blood HCO3 20.6L, Arterial Blood Oxygen Saturation 96.8, Arterial Blood Base Excess -2.5L, Gunnar Test Positive Height (Feet): 5 Height (Inches): 4.00 Weight (Pounds): 185 General Appearance: mild distress EENT: other - On BiPAP Cardiovascular: tachycardia Respiratory/Chest: decreased breath sounds Abdomen: distended Josafat Marquez MD Jun 10, 2020 16:10
[2020-06-10] MEDS ORDERED: TRAZODONE HCL100 MG ORAL (16:11)
[2020-06-10] MEDS ORDERED: ACETAMINOPHEN500 M3 ORAL (16:11)
[2020-06-10] MEDS ORDERED: GLUCOTROL10 MG ORAL (16:13)
--- NOTE | 2020-06-10 16:32 | Pulmonology Progress Note ---
Subjective ROS Limited/Unobtainable: Yes Interval Events: None new Constitutional: Reports: no symptoms HEENT: Repors: no symptoms Cardiovascular: Reports: no symptoms Gastrointestinal/Abdominal: Reports: no symptoms Genitourinary: Reports: no symptoms Neurologic: Reports: no symptoms Allergies: Coded Allergies: No Known Allergies (Unverified , 06/07/20) All Systems: reviewed and negative except above Objective Last 24 Hour Vital Signs Date Time Temp Pulse Resp B/P (MAP) Pulse Ox O2 Delivery O2 Flow Rate FiO2 06/10/20 16:00 92 26 124/64 (84) 99 06/10/20 16:00 93 06/10/20 15:51 94 24 15.0 100 06/10/20 15:00 94 30 129/71 (90) 99 06/10/20 14:00 93 30 131/74 (93) 97 06/10/20 13:00 95 29 132/64 (86) 97 06/10/20 12:12 15.0 06/10/20 12:00 Non-Rebreather 15.0 06/10/20 12:00 93 06/10/20 12:00 100 06/10/20 12:00 98.8 92 30 140/87 (104) 100 06/10/20 11:00 96 29 123/69 (87) 98 06/10/20 10:55 94 36 99 100 06/10/20 10:10 100 06/10/20 10:00 94 29 135/75 (95) 96 06/10/20 09:52 15.0 06/10/20 09:00 96 27 151/90 (110) 94 06/10/20 08:23 102 144/77 06/10/20 08:00 103 06/10/20 08:00 98.6 89 30 141/77 (98) 99 06/10/20 08:00 100 06/10/20 08:00 Bi-pap 06/10/20 07:11 92 28 99 100 06/10/20 07:00 91 28 151/78 (102) 100 06/10/20 06:00 88 30 148/81 (103) 98 06/10/20 05:00 90 30 152/85 (107) 99 06/10/20 04:00 Bi-pap 06/10/20 04:00 100 06/10/20 04:00 98.2 104 31 157/89 (111) 99 06/10/20 04:00 100 06/10/20 03:19 94 31 97 100 06/10/20 03:00 94 26 154/90 (111) 97 06/10/20 02:00 94 29 153/89 (110) 98 06/10/20 01:00 96 27 149/92 (111) 98 06/10/20 00:00 100 06/10/20 00:00 98.2 91 27 151/86 (107) 98 06/10/20 00:00 Bi-pap 06/09/20 23:00 96 29 150/85 (106) 99 06/09/20 22:35 96 31 97 100 06/09/20 22:00 96 29 150/87 (108) 99 06/09/20 21:00 95 28 150/89 (109) 99 06/09/20 20:00 100 06/09/20 20:00 98.6 96 27 147/78 (101) 99 06/09/20 20:00 96 06/09/20 20:00 Bi-pap 06/09/20 19:17 99 36 100 100 06/09/20 19:00 97 34 147/82 (103) 100 06/09/20 18:18 100 06/09/20 18:00 97 25 145/81 (102) 100 06/09/20 18:00 101 27 145/81 (102) 99 06/09/20 17:00 90 24 147/80 (102) 99 06/09/20 17:00 98 29 147/80 (102) 99 Intake and Output 06/09/20 06/10/20 19:00 07:00 Intake Total 2246.4480 ml 1353.944 ml Output Total 1380 ml 1800 ml Balance 866.4480 ml -446.056 ml Intake Oral 680 ml 200 ml IV Total 1536.4480 ml 1153.944 ml Other 30 ml Output Urine Total 1380 ml 1800 ml General Appearance: no acute distress HEENT: normocephalic Respiratory: chest wall non-tender, other - tachypnea Cardiovascular: normal peripheral pulses Abdomen: normal bowel sounds Genitourinary: other - Flores Laboratory Tests 06/10/20 04:10: White Blood Count 12.8H, Red Blood Count 3.85L, Hemoglobin 11.3L, Hematocrit 32.2L, Mean Corpuscular Volume 84, Mean Corpuscular Hemoglobin 29.3, Mean Corpuscular Hemoglobin Concent 35.0, Red Cell Distribution Width 15.3H, Platelet Count 524H, Mean Platelet Volume 4.8L, Neutrophils (%) (Auto) , Lymphocytes (%) (Auto) , Monocytes (%) (Auto) , Eosinophils (%) (Auto) , Basophils (%) (Auto) , Activated Partial Thromboplast Time 85H, Sodium Level 136, Potassium Level 3.7, Chloride Level 103, Carbon Dioxide Level 22, Blood Urea Nitrogen 21H, Creatinine 0.8, Estimat Glomerular Filtration Rate > 60, Glucose Level 235H, Calcium Level 7.1L, Phosphorus Level 2.1L, Magnesium Level 1.7L, Total Bilirubin 0.3, Direct Bilirubin 0.1, Aspartate Amino Transf (AST/SGOT) 26, Alanine Aminotransferase (ALT/SGPT) 27, Alkaline Phosphatase 79, Total Protein 6.5, Albumin 1.9L, Globulin 4.6, Albumin/Globulin Ratio 0.4L 06/10/20 13:44: Arterial Blood pH 7.451H, Arterial Blood Partial Pressure CO2 30.3L, Arterial Blood Partial Pressure O2 90.9, Arterial Blood HCO3 20.6L, Arterial Blood Oxygen Saturation 96.8, Arterial Blood Base Excess -2.5L, Gunnar Test Positive Current Medications Medications (Trade) Dose Ordered Sig/Vicki Route PRN Reason Start Time Stop Time Status Last Admin Dose Admin Acetaminophen (Tylenol) 650 mg Q4H PRN ORAL Mild Pain (Pain Scale 1-3) 06/07/20 15:15 07/07/20 15:14 Acetaminophen (Tylenol) 650 mg Q4H PRN ORAL Temp >100.5 06/07/20 15:15 07/07/20 15:14 Albuterol/ Ipratropium (Combivent Respimat) 1 puff Q6H PRN INH Shortness of Breath 06/08/20 18:30 07/08/20 18:29 Amlodipine Besylate (Norvasc) 5 mg DAILY ORAL 06/08/20 09:00 07/08/20 08:59 06/10/20 08:23 Atorvastatin Calcium (Lipitor) 40 mg BEDTIME ORAL 06/07/20 21:00 09/05/20 20:59 12/7/20 20:44 Azithromycin 250 mg/Sodium Chloride 275 ml @ 275 mls/hr DAILY IV 06/08/20 09:00 06/12/20 15:15 06/10/20 08:22 Calcium Carbonate (Os-Javier) 500 mg BID ORAL 06/07/20 20:00 09/05/20 19:59 06/10/20 08:23 Cefepime HCl 2 gm/ Dextrose 110 ml @ 220 mls/hr Q24H IV 06/08/20 11:00 06/15/20 10:59 06/10/20 11:53 Dexamethasone Sodium Phosphate (Decadron 10mg/ ml Inj) 6 mg DAILY IV 06/08/20 09:00 06/16/20 09:00 06/10/20 08:23 Dextrose (Dextrose 50%) 25 ml Q30M PRN IV Hypoglycemia 06/08/20 12:30 09/06/20 12:29 Dextrose (Dextrose 50%) 50 ml Q30M PRN IV Hypoglycemia 06/08/20 12:30 09/06/20 12:29 Docusate Sodium (Colace) 100 mg EVERY 12 HOURS ORAL 06/07/20 21:00 07/07/20 20:59 06/10/20 08:24 Heparin Sodium/ Dextrose 500 ml @ 23.496 mls/ hr ADJUST PER PROTOCOL IV 06/08/20 17:45 07/08/20 17:44 06/09/20 15:25 Insulin Aspart (NovoLOG) BEFORE MEALS AND HS SUBQ 06/08/20 16:30 09/06/20 16:29 06/10/20 12:12 Lorazepam (Ativan 2mg/ml 1ml) 0.5 mg Q4H PRN IV For Anxiety 06/07/20 15:15 06/14/20 15:14 Magnesium Sulfate 100 ml @ 100 mls/hr Q1H IVPB 06/10/20 16:15 06/10/20 18:14 Morphine Sulfate (Morphine Sulfate) 2 mg Q4H PRN IVP Moderate Pain (Pain Scale 4-6) 06/07/20 15:15 06/14/20 15:14 06/10/20 11:56 Ondansetron HCl (Zofran) 4 mg Q6H PRN IVP Nausea & Vomiting 12/5/20 15:15 07/07/20 15:14 Pantoprazole (Protonix) 40 mg EVERY 12 HOURS IVP 06/07/20 21:00 07/07/20 20:59 06/10/20 08:22 Polyethylene Glycol (Miralax) 17 gm DAILYPRN PRN ORAL Constipation 06/07/20 15:15 07/07/20 15:14 Potassium Phosphate 20 mm/ Sodium Chloride 281.6667 ml @ 46.944 m... ONCE ONCE IV 06/10/20 17:00 06/10/20 22:59 Remdesivir 100 mg/ Sodium Chloride 250 ml @ 250 mls/hr Q24H IV 06/10/20 16:00 06/13/20 16:59 Sodium Chloride 1,000 ml @ 75 mls/hr [id number] IV 06/07/20 15:00 07/07/20 14:59 06/10/20 09:43 Temazepam (Restoril) 15 mg HSPRN PRN ORAL Insomnia 06/07/20 15:15 06/14/20 15:14 Assessment/Plan Assessment/Plan 1. COVID-19 pneumonia. - pt would benefit from steroids and remdesivir - Continue Remdesivir - Cont decadron - Respiratory isolation 2. Hypoxemia. - Cont BiPAP; unable to wean 3. Hypertension. 4. Diabetes mellitus. 5. Respiratory Failure. Trend ABG's. - pH 7.4 -> 7.5 - pCO2 32.8 -> 25.3 - pO2 71.8 -> 74.8 - HCO3 20.6 -> 18.5 DVT ppx - on heparin - 06/09/2020 venous duplex neg for DVT Time spent for this case was approximately 31 minutes Francis Nolasco MD Jun 10, 2020 16:32
[2020-06-10] MEDS ORDERED: Potassium Phosphate 20 MM in NS 275 ML IV ONE (17:00)
[2020-06-10] MEDS: Heparin 25,000u/D5W 500ml 500 ML IV SCH (17:11)
--- NOTE | 2020-06-10 17:13 | NUR ---
NURSE NOTES: LATE ENTRY: PT C/O NAUSEA AND UPSET STOMACH. [id number] IVP. PT HOB 40. CALL LIGHT IN REACH, BED ALARM ON.
--- NOTE | 2020-06-10 19:12 | NUR ---
NURSE HAND-OFF REPORT: Latest Vital Signs: Temperature 98.8 , Pulse 98 , B/P 133 /69 , Respiratory Rate 20 , O2 SAT 91 , Bi-pap, O2 Flow Rate 15.0 . Vital Sign Comment: EKG Rhythm: Sinus Rhythm Rhythm change?: N Notified?: - Response: Latest Griffiths Fall Score: 35 Fall Risk: Medium Risk Safety Measures: Call light Within Reach, Bed Alarm Zone 1, Side Rails Side Rails x3, Bed position Low and Locked. Fall Precautions: Door Sign Report given to .Cal quevedo Addendum: 06/10/20 at 1913 by Cherry Dean RN Brandee Quevedo
--- NOTE | 2020-06-10 19:30 | NUR ---
NURSE NOTES: Received report from Jermaine RN. Patient in bed awake,alert oriented x4. able to verbalize needs to staff. on non rebreather mask at 15L satting 85-93%. HOB elevated. Flores draining. IV site Right hand and Right AC intact no s/s of infiltration infusing Heparin drip at 14units/kg/hr and NS at 75cc/hr. no bleeding. call light within easy reach. bed alarm on. bed locked and in low position. Covid + airborne isolation maintained and observed. will continue plan of care.
--- NOTE | 2020-06-10 19:49 | NUR ---
RESPIRATORY NOTE: Received pt on 100% NRB. Pt alert/awake, follows commands. B/S larry. diminished, nonproductive cough. BiPAP on s/b at this time, plugged into red outlet, ambubag at bedside. Pt tolerating well, in no apparent distress at this time. Will continue to monitor pt.
--- NOTE | 2020-06-10 21:00 | NUR ---
NURSE NOTES: patient daughter Ines called and updated regarding patient condition.
[2020-06-10] MEDS: Atorvastatin 20mg tab ORAL SCH (22:37)
--- NOTE | 2020-06-10 23:00 | NUR ---
NURSE NOTES: patient in bed awake,alert no complain of pain or discomfort. skin warm and dry to touch. no s/s of acute distress noted. on non rebreather at 15L satting 85-93%. HOB elevated. call light within easy reach. frequent visual checks continued. Will continue plan of care.
--- NOTE | 2020-06-10 23:30 | NUR ---
NURSE NOTES: placed patient on BIPAP 10/5 fi02 100% satting 97%. HOB elevated.
[2020-06-11] VITALS (24 sets, daily range): BP systolic 94–167; BP diastolic 63–98
--- NOTE | 2020-06-11 01:30 | NUR ---
NURSE NOTES: Patient in bed sleeping comfortably. HOB elevated. no s/s of acute distress noted. airborne precaution maintained and observed. will continue plan of care.
--- NOTE | 2020-06-11 03:30 | NUR ---
NURSE NOTES: Patient awake,alert suctioned orally with thick noe secretion. oral care provided. watching TV. turned and repositioned patient in bed. frequent visual checks continued. call light within easy reach. will continue plan of care.
[2020-06-11 04:23] LABS: HEMATOCRIT 29.9 % (37.0-47.0); HEMOGLOBIN 10.5 G/DL (12.0-16.0); MEAN CORPUSCULAR VOLUME 83 FL (80-99); PLATELET COUNT 510 K/UL (150-450); RED BLOOD COUNT 3.62 M/UL (4.20-5.40); RED CELL DISTRIBUTION WIDTH 16.4 % (11.6-14.8); WHITE BLOOD COUNT 11.9 K/UL (4.8-10.8)
[2020-06-11 04:42] LABS: ALANINE AMINOTRANSFERASE 21 U/L (12-78); ALBUMIN 1.7 G/DL (3.4-5.0); ALBUMIN/GLOBULIN RATIO 0.4 (1.0-2.7); ALKALINE PHOSPHATASE 76 U/L (46-116); ANION GAP 6 mmol/L (5-15); ASPARTATE AMINO TRANSFERASE 22 U/L (15-37); BILIRUBIN,DIRECT 0.2 MG/DL (0.0-0.3); BILIRUBIN,TOTAL 0.4 MG/DL (0.2-1.0); BLOOD UREA NITROGEN 18 mg/dL (7-18); CALCIUM 6.9 MG/DL (8.5-10.1); CARBON DIOXIDE 23 MMOL/L (21-32); CHLORIDE 107 MMOL/L (98-107); CREATININE 0.7 MG/DL (0.55-1.30); POTASSIUM 3.8 MMOL/L (3.5-5.1); SODIUM 136 MMOL/L (136-145)
--- NOTE | 2020-06-11 05:00 | NUR ---
NURSE NOTES: Bed bath given tolerated well.
--- NOTE | 2020-06-11 05:15 | NUR ---
NURSE NOTES: PTT 85 [employer] Pharmacist Arabella aware. will continue the same dose Heparin drip at 14units/kg/hr, timed PTT in am. Charge nurse aware.
[2020-06-11] MEDS: NovoLOG Insulin Flexpen SUBQ SCH ×4 (06:30→21:00)
--- NOTE | 2020-06-11 07:15 | NUR ---
HAND-OFF: Report given to Diaz GUADALUPE.
--- NOTE | 2020-06-11 07:30 | NUR ---
NURSE NOTES: Received patient in bed awake,alert oriented x4, speaks [place], able to verbalize needs. On non rebreather mask at 15L saturating 96,%. HOB elevated. IV site Right hand and Right AC intact, asymptomatic running Heparin drip at 14units/kg/hr and NS at 75cc/hr. Flores catheter intact and draining to light odette urine. Call light within placed within easy reach, bed alarm on and kept in low position. Will continue to monitor.
[2020-06-11] MEDS: dexAMETHasone 10mg/ml Inj IV SCH (07:53)
[2020-06-11] MEDS: Pantoprazole Inj IVP SCH ×2 (07:53→21:00)
[2020-06-11] MEDS: Docusate 100mg cap ORAL SCH ×2 (07:53→21:00)
[2020-06-11] MEDS: Os-Cal (Oyster Shell) 500mg tab ORAL SCH ×2 (07:56→17:48)
--- NOTE | 2020-06-11 09:06 | Infectious Diseases Prog Note ---
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 KEVIN, improved BLE US neg for DVT 06/09 Obesity DM2 HTN Plan: Cont remdesivir #/ (started late given KEVIN on admission) Cont dexamethasone 6mg daily #11/10 Cont empiric cefepime and Azithromycin #11/05 This institution unfortunately does not have convalescent plasma available, although as pt 1 week out from dx unlikely to benefit at this point Monitor CBC/CMP Monitor temp curve, hemodynamics Monitor resp status D/w RN Thank you for this consult. [facility] will continue to follow. Subjective Allergies: Coded Allergies: No Known Allergies (Unverified , 06/07/20) AF WBC 11, stable/improving NAD on BiPAP Satting 92%, unable to wean from BiPAP due to desatting Objective Last 24 Hour Vital Signs Date Time Temp Pulse Resp B/P (MAP) Pulse Ox O2 Delivery O2 Flow Rate FiO2 06/11/20 08:00 98.0 90 24 142/85 (104) 96 06/11/20 08:00 100 06/11/20 08:00 Bi-pap 06/11/20 08:00 86 06/11/20 07:56 97 132/97 06/11/20 07:00 91 30 132/95 (107) 98 06/11/20 06:00 86 23 140/75 (96) 99 06/11/20 05:00 87 27 127/67 (87) 97 06/11/20 04:00 98.2 82 26 136/78 (97) 97 06/11/20 04:00 81 06/11/20 04:00 100 06/11/20 04:00 Bi-pap 06/11/20 03:00 83 28 125/66 (85) 97 06/11/20 02:50 83 33 97 100 06/11/20 02:00 88 27 138/76 (96) 96 06/11/20 01:00 85 26 127/71 (89) 96 06/11/20 00:00 Bi-pap 12/9/20 00:00 98.0 81 26 128/63 (84) 98 06/11/20 00:00 83 06/10/20 23:30 100 06/10/20 23:07 94 31 99 100 06/10/20 23:00 90 27 137/71 (93) 93 06/10/20 22:00 96 30 134/72 (92) 93 06/10/20 21:00 90 27 130/72 (91) 94 06/10/20 20:00 Bi-pap 06/10/20 20:00 95 06/10/20 20:00 15.0 06/10/20 20:00 98.2 97 28 131/73 (92) 93 06/10/20 19:46 97 23 96 100 06/10/20 19:45 96 Non-Rebreather 15.0 100 06/10/20 19:00 96 25 134/70 (91) 97 06/10/20 18:00 98 20 133/69 (90) 91 06/10/20 17:00 99 28 124/83 (97) 95 06/10/20 16:00 92 26 124/64 (84) 99 06/10/20 16:00 93 06/10/20 16:00 Bi-pap 06/10/20 15:51 94 24 15.0 100 06/10/20 15:00 94 30 129/71 (90) 99 06/10/20 14:00 93 30 131/74 (93) 97 06/10/20 13:00 95 29 132/64 (86) 97 06/10/20 12:12 15.0 06/10/20 12:00 Non-Rebreather 15.0 06/10/20 12:00 93 06/10/20 12:00 100 06/10/20 12:00 98.8 92 30 140/87 (104) 100 06/10/20 11:00 96 29 123/69 (87) 98 06/10/20 10:55 94 36 99 100 06/10/20 10:10 100 06/10/20 10:00 94 29 135/75 (95) 96 06/10/20 09:52 15.0 Height (Feet): 5 Height (Inches): 4.00 Weight (Pounds): 185 Gen: NAD HEENT: NCAT Pulm: BL chest rise Abd: Non-distended Ext: No c/c/e Skin: No visible rashes Neuro: Awake Laboratory Tests Test 06/10/20 13:44 06/11/20 03:59 Arterial Blood pH 7.451 (7.350-7.450) Arterial Blood Partial Pressure CO2 30.3 mmHg (35.0-45.0) L Arterial Blood Partial Pressure O2 90.9 mmHg (75.0-100.0) Arterial Blood HCO3 20.6 mmol/L (22.0-26.0) L Arterial Blood Oxygen Saturation 96.8 % (95-100) Arterial Blood Base Excess -2.5 (-2-2) L Gunnar Test Positive White Blood Count 11.9 K/UL (4.8-10.8) H Red Blood Count 3.62 M/UL (4.20-5.40) L Hemoglobin 10.5 G/DL (12.0-16.0) L Hematocrit 29.9 % (37.0-47.0) L Mean Corpuscular Volume 83 FL (80-99) Mean Corpuscular Hemoglobin 28.9 PG (27.0-31.0) Mean Corpuscular Hemoglobin Concent 35.0 G/DL (32.0-36.0) Red Cell Distribution Width 16.4 % (11.6-14.8) H Platelet Count 510 K/UL (150-450) H Mean Platelet Volume 5.1 FL (6.5-10.1) L Neutrophils (%) (Auto) % (45.0-75.0) Lymphocytes (%) (Auto) % (20.0-45.0) Monocytes (%) (Auto) % (1.0-10.0) Eosinophils (%) (Auto) % (0.0-3.0) Basophils (%) (Auto) % (0.0-2.0) Activated Partial Thromboplast Time 85 SEC (23-33) H Sodium Level 136 MMOL/L (136-145) Potassium Level 3.8 MMOL/L (3.5-5.1) Chloride Level 107 MMOL/L (98-107) Carbon Dioxide Level 23 MMOL/L (21-32) Anion Gap 6 mmol/L (5-15) Blood Urea Nitrogen 18 mg/dL (7-18) Creatinine 0.7 MG/DL (0.55-1.30) Estimat Glomerular Filtration Rate > 60 mL/min (>60) Glucose Level 179 MG/DL (74-106) H Calcium Level 6.9 MG/DL (8.5-10.1) L Total Bilirubin 0.4 MG/DL (0.2-1.0) Direct Bilirubin 0.2 MG/DL (0.0-0.3) Aspartate Amino Transf (AST/SGOT) 22 U/L (15-37) Alanine Aminotransferase (ALT/SGPT) 21 U/L (12-78) Alkaline Phosphatase 76 U/L (46-116) Total Protein 5.7 G/DL (6.4-8.2) L Albumin 1.7 G/DL (3.4-5.0) L Globulin 4.0 g/dL Albumin/Globulin Ratio 0.4 (1.0-2.7) L Current Medications Medications (Trade) Dose Ordered Sig/Vicki Route PRN Reason Start Time Stop Time Status Last Admin Dose Admin Acetaminophen (Tylenol) 650 mg Q4H PRN ORAL Mild Pain (Pain Scale 1-3) 06/07/20 15:15 07/07/20 15:14 Acetaminophen (Tylenol) 650 mg Q4H PRN ORAL Temp >100.5 06/07/20 15:15 07/07/20 15:14 Albuterol/ Ipratropium (Combivent Respimat) 1 puff Q6H PRN INH Shortness of Breath 06/08/20 18:30 07/08/20 18:29 Amlodipine Besylate (Norvasc) 5 mg DAILY ORAL 06/08/20 09:00 07/08/20 08:59 06/11/20 07:56 Atorvastatin Calcium (Lipitor) 40 mg BEDTIME ORAL 06/07/20 21:00 09/05/20 20:59 06/10/20 22:37 Azithromycin 250 mg/Sodium Chloride 275 ml @ 275 mls/hr DAILY IV 06/08/20 09:00 06/12/20 15:15 06/10/20 08:22 Calcium Carbonate (Os-Javier) 500 mg BID ORAL 06/07/20 20:00 09/05/20 19:59 06/11/20 07:56 Cefepime HCl 2 gm/ Dextrose 110 ml @ 220 mls/hr Q24H IV 06/08/20 11:00 06/15/20 10:59 06/10/20 11:53 Dexamethasone Sodium Phosphate (Decadron 10mg/ ml Inj) 6 mg DAILY IV 06/08/20 09:00 06/16/20 09:00 06/11/20 07:53 Dextrose (Dextrose 50%) 25 ml Q30M PRN IV Hypoglycemia 06/08/20 12:30 09/06/20 12:29 Dextrose (Dextrose 50%) 50 ml Q30M PRN IV Hypoglycemia 06/08/20 12:30 09/06/20 12:29 Docusate Sodium (Colace) 100 mg EVERY 12 HOURS ORAL 06/07/20 21:00 07/07/20 20:59 06/11/20 07:53 Heparin Sodium/ Dextrose 500 ml @ 23.496 mls/ hr ADJUST PER PROTOCOL IV 06/08/20 17:45 07/08/20 17:44 06/10/20 17:11 Insulin Aspart (NovoLOG) BEFORE MEALS AND HS SUBQ 06/08/20 16:30 09/06/20 16:29 06/11/20 06:30 Lorazepam (Ativan 2mg/ml 1ml) 0.5 mg Q4H PRN IV For Anxiety 06/07/20 15:15 06/14/20 15:14 Morphine Sulfate (Morphine Sulfate) 2 mg Q4H PRN IVP Moderate Pain (Pain Scale 4-6) 06/07/20 15:15 06/14/20 15:14 06/10/20 11:56 Ondansetron HCl (Zofran) 4 mg Q6H PRN IVP Nausea & Vomiting 06/07/20 15:15 07/07/20 15:14 06/10/20 17:13 Pantoprazole (Protonix) 40 mg EVERY 12 HOURS IVP 06/07/20 21:00 07/07/20 20:59 06/11/20 07:53 Polyethylene Glycol (Miralax) 17 gm DAILYPRN PRN ORAL Constipation 06/07/20 15:15 07/07/20 15:14 Remdesivir 100 mg/ Sodium Chloride 250 ml @ 250 mls/hr Q24H IV 06/10/20 16:00 06/13/20 16:59 06/10/20 16:00 Sodium Chloride 1,000 ml @ 75 mls/hr [id number] IV 06/07/20 15:00 07/07/20 14:59 06/10/20 22:38 Temazepam (Restoril) 15 mg HSPRN PRN ORAL Insomnia 06/07/20 15:15 06/14/20 15:14 Nicolasa Del Cid M.D. Jun 11, 2020 09:06
[2020-06-11] MEDS: Azithromycin 250 MG in NS 275 ML IV SCH (09:42)
--- NOTE | 2020-06-11 09:45 | NUR ---
RD ASSESSMENT & RECOMMENDATIONS SEE CARE ACTIVITY FOR COMPLETE ASSESSMENT DAILY ESTIMATED NEEDS: Needs based on Pulmonary, DM/ 65kg 25-30 kcals/kg 7973-6987 total kcals 1-1.5 g protein/kg 65-97 g total protein 25-30 mL/kg 7011-8563 total fluid mLs NUTRITION DIAGNOSIS: Altered nutrition related lab values R/T h/o DM, on steroidal med, clinical condition as evidenced by A1C of 8.1, elev BGs and POC glu ([phone]), pt on Decadron, low mag (1.7), and low phos (2.1). CURRENT DIET:CARDIAC, mech soft chopped PO DIET RECOMMENDATIONS: CCHO MED/ texture as tolerated or per [facility] (pt on BIPAP) ADDITIONAL RECOMMENDATIONS: * Calibrated bedscale wt * Consider [facility] eval for appropriate texture- on BIPAP * Glucerna w/ meals if easier to tolerate than solids and to maximize kcal/prot intake while pt on BIPAP. * Monitor lytes, replete as needed (low phos and mag) * Monitor BMs/ constipation- no recorded BM since adm
--- NOTE | 2020-06-11 09:56 | NUR ---
NURSE NOTES: Dr. Yuen called, ordered for heparin IV discontinuation. Noted and carried out.
[2020-06-11 11:27] LABS: PHOSPHORUS 2.6 MG/DL (2.5-4.9)
--- NOTE | 2020-06-11 12:00 | NUR ---
NURSE NOTES: Patient resting, breathing unlabored. Remains on BiPAP.
--- NOTE | 2020-06-11 12:01 | Pulmonology Progress Note ---
Subjective ROS Limited/Unobtainable: Yes Interval Events: None new Constitutional: Reports: no symptoms HEENT: Repors: no symptoms Cardiovascular: Reports: no symptoms Gastrointestinal/Abdominal: Reports: no symptoms Genitourinary: Reports: no symptoms Neurologic: Reports: no symptoms Allergies: Coded Allergies: No Known Allergies (Unverified , 06/07/20) All Systems: reviewed and negative except above Objective Last 24 Hour Vital Signs Date Time Temp Pulse Resp B/P (MAP) Pulse Ox O2 Delivery O2 Flow Rate FiO2 06/11/20 11:07 91 29 94 100 06/11/20 10:00 92 32 136/72 (93) 95 06/11/20 09:00 91 31 133/79 (97) 96 06/11/20 08:00 98.0 90 24 142/85 (104) 96 06/11/20 08:00 100 06/11/20 08:00 Bi-pap 06/11/20 08:00 86 06/11/20 07:56 97 132/97 06/11/20 07:02 88 38 94 100 06/11/20 07:02 97 Bi-Pap 100 06/11/20 07:00 91 30 132/95 (107) 98 06/11/20 06:00 86 23 140/75 (96) 99 06/11/20 05:00 87 27 127/67 (87) 97 06/11/20 04:00 98.2 82 26 136/78 (97) 97 06/11/20 04:00 81 06/11/20 04:00 100 06/11/20 04:00 Bi-pap 06/11/20 03:00 83 28 125/66 (85) 97 06/11/20 02:50 83 33 97 100 06/11/20 02:00 88 27 138/76 (96) 96 06/11/20 01:00 85 26 127/71 (89) 96 06/11/20 00:00 Bi-pap 06/11/20 00:00 98.0 81 26 128/63 (84) 98 06/11/20 00:00 83 06/10/20 23:30 100 06/10/20 23:07 94 31 99 100 06/10/20 23:00 90 27 137/71 (93) 93 06/10/20 22:00 96 30 134/72 (92) 93 06/10/20 21:00 90 27 130/72 (91) 94 06/10/20 20:00 Bi-pap 06/10/20 20:00 95 06/10/20 20:00 15.0 06/10/20 20:00 98.2 97 28 131/73 (92) 93 06/10/20 19:46 97 23 96 100 06/10/20 19:45 96 Non-Rebreather 15.0 100 06/10/20 19:00 96 25 134/70 (91) 97 06/10/20 18:00 98 20 133/69 (90) 91 06/10/20 17:00 99 28 124/83 (97) 95 06/10/20 16:00 92 26 124/64 (84) 99 06/10/20 16:00 93 06/10/20 16:00 Bi-pap 06/10/20 15:51 94 24 15.0 100 06/10/20 15:00 94 30 129/71 (90) 99 06/10/20 14:00 93 30 131/74 (93) 97 06/10/20 13:00 95 29 132/64 (86) 97 06/10/20 12:12 15.0 Intake and Output 06/10/20 06/11/20 18:59 06:59 Intake Total 2208.984 ml 1161.942 ml Output Total 925 ml 1050 ml Balance 1283.984 ml 111.942 ml Intake Oral 220 ml IV Total 1988.984 ml 1161.942 ml Output Urine Total 925 ml 1050 ml General Appearance: no acute distress HEENT: normocephalic Respiratory: chest wall non-tender, other - tachypnea Cardiovascular: normal peripheral pulses Abdomen: normal bowel sounds Genitourinary: other - Flores Laboratory Tests 06/10/20 13:44: Arterial Blood pH 7.451H, Arterial Blood Partial Pressure CO2 30.3L, Arterial Blood Partial Pressure O2 90.9, Arterial Blood HCO3 20.6L, Arterial Blood Oxygen Saturation 96.8, Arterial Blood Base Excess -2.5L, Gunnar Test Positive 06/11/20 03:59: White Blood Count 11.9H, Red Blood Count 3.62L, Hemoglobin 10.5L, Hematocrit 29.9L, Mean Corpuscular Volume 83, Mean Corpuscular Hemoglobin 28.9, Mean Corpuscular Hemoglobin Concent 35.0, Red Cell Distribution Width 16.4H, Platelet Count 510H, Mean Platelet Volume 5.1L, Neutrophils (%) (Auto) , Lymphocytes (%) (Auto) , Monocytes (%) (Auto) , Eosinophils (%) (Auto) , Basophils (%) (Auto) , Activated Partial Thromboplast Time 85H, Sodium Level 136, Potassium Level 3.8, Chloride Level 107, Carbon Dioxide Level 23, Anion Gap 6, Blood Urea Nitrogen 18, Creatinine 0.7, Estimat Glomerular Filtration Rate > 60, Glucose Level 179H, Calcium Level 6.9L, Phosphorus Level 2.6, Magnesium Level 1.9, Total Bilirubin 0.4, Direct Bilirubin 0.2, Aspartate Amino Transf (AST/SGOT) 22, Alanine Aminotransferase (ALT/SGPT) 21, Alkaline Phosphatase 76, Total Protein 5.7L, Albumin 1.7L, Globulin 4.0, Albumin/Globulin Ratio 0.4L 06/11/20 10:20: Arterial Blood pH 7.430, Arterial Blood Partial Pressure CO2 29.7L, Arterial Blood Partial Pressure O2 58.4L, Arterial Blood HCO3 19.3L, Arterial Blood Oxygen Saturation 90.9L, Arterial Blood Base Excess -4.0L, Gunnar Test Positive Current Medications Medications (Trade) Dose Ordered Sig/Vicki Route PRN Reason Start Time Stop Time Status Last Admin Dose Admin Acetaminophen (Tylenol) 650 mg Q4H PRN ORAL Mild Pain (Pain Scale 1-3) 06/07/20 15:15 07/07/20 15:14 Acetaminophen (Tylenol) 650 mg Q4H PRN ORAL Temp >100.5 06/07/20 15:15 07/07/20 15:14 Albuterol/ Ipratropium (Combivent Respimat) 1 puff Q6H PRN INH Shortness of Breath 06/08/20 18:30 07/08/20 18:29 Amlodipine Besylate (Norvasc) 5 mg DAILY ORAL 06/08/20 09:00 07/08/20 08:59 06/11/20 07:56 Atorvastatin Calcium (Lipitor) 40 mg BEDTIME ORAL 06/07/20 21:00 09/05/20 20:59 06/10/20 22:37 Azithromycin 250 mg/Sodium Chloride 275 ml @ 275 mls/hr DAILY IV 06/08/20 09:00 06/12/20 15:15 06/11/20 09:42 Calcium Carbonate (Os-Javier) 500 mg BID ORAL 06/07/20 20:00 09/05/20 19:59 06/11/20 07:56 Cefepime HCl 2 gm/ Dextrose 110 ml @ 220 mls/hr Q24H IV 06/08/20 11:00 06/15/20 10:59 06/10/20 11:53 Dexamethasone Sodium Phosphate (Decadron 10mg/ ml Inj) 6 mg DAILY IV 06/08/20 09:00 06/16/20 09:00 06/11/20 07:53 Dextrose (Dextrose 50%) 25 ml Q30M PRN IV Hypoglycemia 06/08/20 12:30 09/06/20 12:29 Dextrose (Dextrose 50%) 50 ml Q30M PRN IV Hypoglycemia 06/08/20 12:30 09/06/20 12:29 Docusate Sodium (Colace) 100 mg EVERY 12 HOURS ORAL 06/07/20 21:00 07/07/20 20:59 06/11/20 07:53 Enoxaparin Sodium (Lovenox) 40 mg DAILY SUBQ 06/12/20 09:00 09/10/20 08:59 Insulin Aspart (NovoLOG) BEFORE MEALS AND HS SUBQ 06/08/20 16:30 09/06/20 16:29 06/11/20 06:30 Lorazepam (Ativan 2mg/ml 1ml) 0.5 mg Q4H PRN IV For Anxiety 06/07/20 15:15 06/14/20 15:14 Morphine Sulfate (Morphine Sulfate) 2 mg Q4H PRN IVP Moderate Pain (Pain Scale 4-6) 06/07/20 15:15 06/14/20 15:14 06/10/20 11:56 Ondansetron HCl (Zofran) 4 mg Q6H PRN IVP Nausea & Vomiting 06/07/20 15:15 07/07/20 15:14 06/10/20 17:13 Pantoprazole (Protonix) 40 mg EVERY 12 HOURS IVP 06/07/20 21:00 07/07/20 20:59 06/11/20 07:53 Polyethylene Glycol (Miralax) 17 gm DAILYPRN PRN ORAL Constipation 06/07/20 15:15 07/07/20 15:14 Remdesivir 100 mg/ Sodium Chloride 250 ml @ 250 mls/hr Q24H IV 06/10/20 16:00 06/13/20 16:59 06/10/20 16:00 Sodium Chloride 1,000 ml @ 75 mls/hr [id number] IV 06/07/20 15:00 07/07/20 14:59 06/10/20 22:38 Temazepam (Restoril) 15 mg HSPRN PRN ORAL Insomnia 06/07/20 15:15 06/14/20 15:14 Assessment/Plan Assessment/Plan 1. COVID-19 pneumonia. - pt would benefit from steroids and remdesivir - Continue Remdesivir - Cont decadron - Respiratory isolation 2. Hypoxemia. - Cont BiPAP; unable to wean - ABG continues to show hypoxemia 3. Hypertension. 4. Diabetes mellitus. 5. Respiratory Failure. DVT ppx - on heparin - 06/09/2020 venous duplex neg for DVT Time spent for this case was approximately 31 minutes Francis Nolasco MD Jun 11, 2020 12:01
[2020-06-11] MEDS: Cefepime HCl 2 GM in D5W 110 ML IV SCH (12:04)
--- NOTE | 2020-06-11 12:22 | General Progress Note ---
Subjective Date patient seen: Jun 11, 2020 Time patient seen: 12:05 Allergies: Coded Allergies: No Known Allergies (Unverified , 06/07/20) Subjective Patient is on BIPAP. She feels short of breath. Denies pain. Tolerating small bites of food. She has been trying to remove her mask at times. Objective Last 24 Hour Vital Signs Date Time Temp Pulse Resp B/P (MAP) Pulse Ox O2 Delivery O2 Flow Rate FiO2 06/11/20 11:07 91 29 94 100 06/11/20 10:00 92 32 136/72 (93) 95 06/11/20 09:00 91 31 133/79 (97) 96 06/11/20 08:00 98.0 90 24 142/85 (104) 96 06/11/20 08:00 100 06/11/20 08:00 Bi-pap 06/11/20 08:00 86 06/11/20 07:56 97 132/97 06/11/20 07:02 88 38 94 100 06/11/20 07:02 97 Bi-Pap 100 06/11/20 07:00 91 30 132/95 (107) 98 06/11/20 06:00 86 23 140/75 (96) 99 06/11/20 05:00 87 27 127/67 (87) 97 06/11/20 04:00 98.2 82 26 136/78 (97) 97 06/11/20 04:00 81 06/11/20 04:00 100 06/11/20 04:00 Bi-pap 06/11/20 03:00 83 28 125/66 (85) 97 06/11/20 02:50 83 33 97 100 06/11/20 02:00 88 27 138/76 (96) 96 06/11/20 01:00 85 26 127/71 (89) 96 06/11/20 00:00 Bi-pap 06/11/20 00:00 98.0 81 26 128/63 (84) 98 06/11/20 00:00 83 06/10/20 23:30 100 06/10/20 23:07 94 31 99 100 06/10/20 23:00 90 27 137/71 (93) 93 06/10/20 22:00 96 30 134/72 (92) 93 06/10/20 21:00 90 27 130/72 (91) 94 06/10/20 20:00 Bi-pap 06/10/20 20:00 95 06/10/20 20:00 15.0 06/10/20 20:00 98.2 97 28 131/73 (92) 93 06/10/20 19:46 97 23 96 100 06/10/20 19:45 96 Non-Rebreather 15.0 100 06/10/20 19:00 96 25 134/70 (91) 97 06/10/20 18:00 98 20 133/69 (90) 91 06/10/20 17:00 99 28 124/83 (97) 95 06/10/20 16:00 92 26 124/64 (84) 99 06/10/20 16:00 93 06/10/20 16:00 Bi-pap 06/10/20 15:51 94 24 15.0 100 06/10/20 15:00 94 30 129/71 (90) 99 06/10/20 14:00 93 30 131/74 (93) 97 06/10/20 13:00 95 29 132/64 (86) 97 Intake and Output 06/10/20 06/11/20 19:00 07:00 Intake Total 2283.984 ml 1161.940 ml Output Total 885 ml 1085 ml Balance 1398.984 ml 76.940 ml Intake Oral 220 ml IV Total 2063.984 ml 1161.940 ml Output Urine Total 885 ml 1085 ml Laboratory Tests 06/10/20 13:44: Arterial Blood pH 7.451H, Arterial Blood Partial Pressure CO2 30.3L, Arterial Blood Partial Pressure O2 90.9, Arterial Blood HCO3 20.6L, Arterial Blood Oxygen Saturation 96.8, Arterial Blood Base Excess -2.5L, Gunnar Test Positive 06/11/20 03:59: White Blood Count 11.9H, Red Blood Count 3.62L, Hemoglobin 10.5L, Hematocrit 29.9L, Mean Corpuscular Volume 83, Mean Corpuscular Hemoglobin 28.9, Mean Corpuscular Hemoglobin Concent 35.0, Red Cell Distribution Width 16.4H, Platelet Count 510H, Mean Platelet Volume 5.1L, Neutrophils (%) (Auto) , Lymphocytes (%) (Auto) , Monocytes (%) (Auto) , Eosinophils (%) (Auto) , Basophils (%) (Auto) , Activated Partial Thromboplast Time 85H, Sodium Level 136, Potassium Level 3.8, Chloride Level 107, Carbon Dioxide Level 23, Anion Gap 6, Blood Urea Nitrogen 18, Creatinine 0.7, Estimat Glomerular Filtration Rate > 60, Glucose Level 179H, Calcium Level 6.9L, Phosphorus Level 2.6, Magnesium Level 1.9, Total Bilirubin 0.4, Direct Bilirubin 0.2, Aspartate Amino Transf (AST/SGOT) 22, Alanine Aminotransferase (ALT/SGPT) 21, Alkaline Phosphatase 76, Total Protein 5.7L, Albumin 1.7L, Globulin 4.0, Albumin/Globulin Ratio 0.4L 06/11/20 10:20: Arterial Blood pH 7.430, Arterial Blood Partial Pressure CO2 29.7L, Arterial Blood Partial Pressure O2 58.4L, Arterial Blood HCO3 19.3L, Arterial Blood Oxygen Saturation 90.9L, Arterial Blood Base Excess -4.0L, Gunnar Test Positive Height (Feet): 5 Height (Inches): 4.00 Weight (Pounds): 185 General Appearance: WD/WN EENT: PERRL/EOMI Neck: non-tender Cardiovascular: normal rate Respiratory/Chest: decreased breath sounds Abdomen: non tender Extremities: normal range of motion Neurologic: circulating nurse II-XII grossly normal Assessment/Plan Status: not improved Assessment/Plan: 79-year-old female past medical history of diabetes, hypertension and recent diagnosis of COVID-19 1 week ago admitted to the Hospital with: # Acute hypoxemic respiratory failure due to Co -SARS 2 ( Covid 19 ) pneumonia Respiratory support will continue with Bipap ICU admission due to high risk of decompensation Pulmonary consultation requested with Dr. Nolasco. Continue supportive care. ABG 7.10/30/57. O2 sat 92 % Discontinue Heparin gtt as D dimer elevated on admission. Covid 19 protocol. ID consultation with Dr. Del Cid for Remdisivir appreciated. Cont remdesivir #3/5 (started late given KEVIN on admission) Cont dexamethasone 6mg daily #/ Cont empiric cefepime and Azithromycin #5/ No access to convalescent plasma at [facility] and data showed no survival benefit. HHN prn # Renal failure etiology undetermined Renal consult Dr. Rubio Renal US and TTE pending due to covid infection Renal lytes and IVF per renal team Monitor I/O with Flores Avoid nephrotoxins # Hypertensive heart disease Resume Amlodipine # T2DM Stop Metformin due to hospitalization ISS Monitor BG low dose Lantus 5 units qhs # HLD Continue Statin Diet: Trials of PO intake as tolerated without oxygen desaturation. Cardiac diet DVT ppx with Heparin GI ppx with PPI Actv as tolerated FULL CODE Kavon Yuen MD Jun 11, 2020 12:22
[2020-06-11] MEDS ORDERED: Tubing IV Secondary IV ONE (14:02)
[2020-06-11] MEDS ORDERED: NS 275ml ONE (14:02)
--- NOTE | 2020-06-11 16:00 | NUR ---
NURSE NOTES: Patient likes to touch BiPAP, reinforced the need to keep mask on. Sips of water provided.
--- NOTE | 2020-06-11 16:25 | NUR ---
CASE MANAGEMENT:REVIEW 06/11/20 SI: COVID PNEUMONIA. RESPIRATORY FAILURE 98.2 112 39 145/87 95% ON BIPAP W/100% FIO2 WBC+11.9 IS: IV REMDESIVIR Q24 (09/05) IV DECADRON Q24 IV CEFEPIME Q24 IV AZITHROMYCIN QD IVF@75/HR lovenox sq qd : ICU STATUS DCP: FROM HOME
[2020-06-11] MEDS: Maintenance Dose:Remdesivir 100mg/NS 230ml x 4 Doses IV SCH ×2 (17:48)
--- NOTE | 2020-06-11 18:30 | NUR ---
NURSE NOTES: Left a message to Dr. Gutierrez regarding patient's status, still sinus tachycardia rate of 140-150s, on levophed max. Will endorse to freddie moreno RN., MD no response. Addendum: 06/11/20 at 1941 by Robert Perales RN wrong charting
--- NOTE | 2020-06-11 19:30 | NUR ---
NURSE HAND-OFF REPORT: Latest Vital Signs: Temperature 98.3 , Pulse 111 , B/P 167 /82 , Respiratory Rate 31 , O2 SAT 96 , Bi-pap, O2 Flow Rate 15.0 . Vital Sign Comment: none EKG Rhythm: Sinus Rhythm Rhythm change?: N MD Notified?: - MD Response: Latest Griffiths Fall Score: 35 Fall Risk: Medium Risk Safety Measures: Call light Within Reach, Bed Alarm Zone 1, Side Rails Side Rails x3, Bed position Low and Locked. Fall Precautions: Door Sign Report given to ANAYELI Foster.
[2020-06-11] MEDS: LORazepam Inj 2mg/ml 1ml IV PRN (20:13)
[2020-06-11] MEDS: Atorvastatin 20mg tab ORAL SCH (21:00)
[2020-06-12] VITALS (10 sets, daily range): BP systolic 49–125; BP diastolic 16–82
[2020-06-12] MEDS: Morphine Sulfate 2mg/ml Inj(IV/IM USE ONLY) IVP PRN (00:25)
--- NOTE | 2020-06-12 04:00 | NUR ---
NURSE NOTES: complete bed bath done
[2020-06-12 05:46] LABS: HEMATOCRIT 32.4 % (37.0-47.0); HEMOGLOBIN 10.9 G/DL (12.0-16.0); MEAN CORPUSCULAR VOLUME 87 FL (80-99); PLATELET COUNT 204 K/UL (150-450); RED CELL DISTRIBUTION WIDTH 14.8 % (11.6-14.8); WHITE BLOOD COUNT 15.5 K/UL (4.8-10.8)
--- NOTE | 2020-06-12 06:00 | NUR ---
NURSE NOTES: restless and agitated medication given soft restraint on
[2020-06-12] MEDS: NovoLOG Insulin Flexpen SUBQ SCH (06:04)
[2020-06-12] MEDS: LORazepam Inj 2mg/ml 1ml IV PRN (06:15)
[2020-06-12 07:25] LABS: ALBUMIN 1.9 G/DL (3.4-5.0); ALBUMIN/GLOBULIN RATIO 0.6 (1.0-2.7); BILIRUBIN,DIRECT 0.2 MG/DL (0.0-0.3); BILIRUBIN,TOTAL 0.6 MG/DL (0.2-1.0); CALCIUM 6.8 MG/DL (8.5-10.1); CREATININE 1.1 MG/DL (0.55-1.30); POTASSIUM 4.6 MMOL/L (3.5-5.1)
--- NOTE | 2020-06-12 07:46 | NUR ---
NURSE HAND-OFF REPORT: Latest Vital Signs: Temperature 98.2 , Pulse 115 , B/P 102 /45 , Respiratory Rate 47 , O2 SAT 89 , Bi-pap, O2 Flow Rate 15.0 . Vital Sign Comment: EKG Rhythm: Sinus Tachycardia Rhythm change?: N MD Notified?: - MD Response: Latest Griffiths Fall Score: 35 Fall Risk: Medium Risk Safety Measures: Call light Within Reach, Bed Alarm Zone 1, Side Rails Side Rails x3, Bed position Low and Locked. Fall Precautions: Door Sign Report given to linda varela using sbar.
--- NOTE | 2020-06-12 08:00 | NUR ---
NURSE NOTES: Pt was assessed after receiving change of shift report from Therese GUADALUPE. Pt is disoriented, confused, on Bipap 10/5 FIO2 100% with O2Sat fluctuating from 86-90%. Bilateral diminished lung sounds/with rales. Does not follow commands, however withdraws to pain. ST on court recording monitor, HR 115, however with peripheral weak pulses. Temp 98F axillary, extremities cool to touch. IV fluid NS is infusing at 75ml/hour via right AC #20G. Skin is intact. HOB at high joel's. Bed locked, in lowest position, three side rails up. Orders in place for AM ABGs and repeat chest xray. Awaiting for RT and motorsports technician.
[2020-06-12] MEDS ORDERED: Enoxaparin 40mg Inj SUBQ SCH (09:00)
--- NOTE | 2020-06-12 09:00 | NUR ---
NURSE NOTES: ABGs were drawn; per ABG results and pt desaturating to low 80's%; charge nurse Becca GUADALUPE contacted ER for intubation . STAT chest xray was just done; waiting for results. Pt remains on Bipap 10/5 FIO2-100%, RT now at bedside.
--- NOTE | 2020-06-12 09:04 | NUR ---
NURSE NOTES: Pt became hypoxic, desaturated down to 80% then suddenly dropped to 30% and bradycardic, then heart rhythm of PEA. Code blue was called. CPR started per ACLS protocol. ER MD at bedside, pt was intubated. Please see code sheet for meds given during code. Achieved ROSC at 0917. Pt was placed on Levophed and Dopamine drips per ER/MG and Dr Yuen stat orders.
--- NOTE | 2020-06-12 09:08 | Infectious Diseases Prog Note ---
Subjective Allergies: Coded Allergies: No Known Allergies (Unverified , 06/07/20) Pt decreased, note made in error Objective Last 24 Hour Vital Signs Date Time Temp Pulse Resp B/P (MAP) Pulse Ox O2 Delivery O2 Flow Rate FiO2 06/12/20 07:40 115 47 89 100 06/12/20 07:39 89 Bi-Pap 100 06/12/20 06:45 117 36 102/45 93 06/12/20 06:15 128 45 110/67 65 06/12/20 06:00 116 46 110/61 (77) 9 06/12/20 05:00 126 32 119/16 (50) 9 06/12/20 04:00 Bi-pap 06/12/20 04:00 98.2 124 32 118/82 (94) 9 06/12/20 04:00 100 06/12/20 04:00 123 06/12/20 03:04 125 44 85 100 06/12/20 03:00 121 32 120/82 (95) 9 06/12/20 02:00 118 32 119/60 (79) 9 06/12/20 02:00 125 06/12/20 01:00 98.2 125 32 125/60 (81) 9 06/12/20 00:00 116 06/12/20 00:00 100 06/12/20 00:00 121 32 124/54 (77) 06/12/20 00:00 Bi-pap 06/11/20 23:00 98.4 121 32 119/82 (94) 9 06/11/20 22:28 129 48 84 100 06/11/20 22:00 125 42 135/91 (106) 82 06/11/20 21:00 126 31 122/82 (95) 82 06/11/20 20:43 130 30 147/86 94 06/11/20 20:13 134 30 174/70 90 06/11/20 20:00 100 06/11/20 20:00 132 39 94/74 (81) 91 06/11/20 20:00 Bi-pap 06/11/20 20:00 125 06/11/20 19:00 111 31 167/82 (110) 96 06/11/20 18:47 111 31 96 100 06/11/20 18:46 95 Bi-Pap 100 06/11/20 18:00 108 37 144/85 (104) 95 06/11/20 17:00 105 31 146/83 (104) 97 06/11/20 16:00 92 06/11/20 16:00 Bi-pap 06/11/20 16:00 100 06/11/20 16:00 98.3 92 30 129/66 (87) 98 06/11/20 15:02 108 39 99 100 06/11/20 15:00 105 37 146/98 (114) 95 06/11/20 14:00 99 31 135/78 (97) 95 06/11/20 13:00 96 33 129/68 (88) 96 06/11/20 12:00 100 06/11/20 12:00 Bi-pap 06/11/20 12:00 110 06/11/20 12:00 98.2 112 39 145/87 (106) 88 06/11/20 11:07 91 29 94 100 06/11/20 11:00 99 33 134/78 (96) 93 06/11/20 10:00 92 32 136/72 (93) 95 Height (Feet): 5 Height (Inches): 4.00 Weight (Pounds): 185 Laboratory Tests Test 06/11/20 10:20 06/11/20 20:33 06/11/20 21:15 06/12/20 03:41 Arterial Blood pH 7.430 (7.350-7.450) 7.369 (7.350-7.450) 7.337 (7.350-7.450) Arterial Blood Partial Pressure CO2 29.7 mmHg (35.0-45.0) L 29.8 mmHg (35.0-45.0) L 37.2 mmHg (35.0-45.0) Arterial Blood Partial Pressure O2 58.4 mmHg (75.0-100.0) L 45.2 mmHg (75.0-100.0) 60.8 mmHg (75.0-100.0) L Arterial Blood HCO3 19.3 mmol/L (22.0-26.0) L 16.8 mmol/L (22.0-26.0) *L 19.5 mmol/L (22.0-26.0) L Arterial Blood Oxygen Saturation 90.9 % (95-100) L 80.7 % (95-100) *L 88.6 % (95-100) *L Arterial Blood Base Excess -4.0 (-2-2) L -7.3 (-2-2) L -5.7 (-2-2) L Gunnar Test Positive Positive Positive POC Whole Blood Glucose 238 MG/DL (74-106) H Test 06/12/20 04:10 06/12/20 08:13 White Blood Count 15.5 K/UL (4.8-10.8) H Red Blood Count 3.70 M/UL (4.20-5.40) L Hemoglobin 10.9 G/DL (12.0-16.0) L Hematocrit 32.4 % (37.0-47.0) L Mean Corpuscular Volume 87 FL (80-99) Mean Corpuscular Hemoglobin 29.5 PG (27.0-31.0) Mean Corpuscular Hemoglobin Concent 33.7 G/DL (32.0-36.0) Red Cell Distribution Width 14.8 % (11.6-14.8) Platelet Count 204 K/UL (150-450) # Mean Platelet Volume 5.1 FL (6.5-10.1) L Neutrophils (%) (Auto) % (45.0-75.0) Lymphocytes (%) (Auto) % (20.0-45.0) Monocytes (%) (Auto) % (1.0-10.0) Eosinophils (%) (Auto) % (0.0-3.0) Basophils (%) (Auto) % (0.0-2.0) Differential Total Cells Counted 100 Neutrophils % (Manual) 96 % (45-75) H Lymphocytes % (Manual) 3 % (20-45) L Monocytes % (Manual) 1 % (1-10) Eosinophils % (Manual) 0 % (0-3) Basophils % (Manual) 0 % (0-2) Band Neutrophils 0 % (0-8) Platelet Estimate Adequate Platelet Morphology Normal Hypochromasia Anisocytosis 1+ Sodium Level 140 MMOL/L (136-145) Potassium Level 4.6 MMOL/L (3.5-5.1) Chloride Level 109 MMOL/L (98-107) H Carbon Dioxide Level 15 MMOL/L (21-32) L Anion Gap 16 mmol/L (5-15) H Blood Urea Nitrogen 24 mg/dL (7-18) H Creatinine 1.1 MG/DL (0.55-1.30) # Estimat Glomerular Filtration Rate 47.9 mL/min (>60) Glucose Level 236 MG/DL (74-106) H Calcium Level 6.8 MG/DL (8.5-10.1) L Total Bilirubin 0.6 MG/DL (0.2-1.0) Direct Bilirubin 0.2 MG/DL (0.0-0.3) Aspartate Amino Transf (AST/SGOT) 59 U/L (15-37) H Alanine Aminotransferase (ALT/SGPT) 30 U/L (12-78) Alkaline Phosphatase 118 U/L (46-116) H Total Protein 5.3 G/DL (6.4-8.2) L Albumin 1.9 G/DL (3.4-5.0) L Globulin 3.4 g/dL Albumin/Globulin Ratio 0.6 (1.0-2.7) L Arterial Blood pH 7.320 (7.350-7.450) Arterial Blood Partial Pressure CO2 33.6 mmHg (35.0-45.0) L Arterial Blood Partial Pressure O2 48.4 mmHg (75.0-100.0) Arterial Blood HCO3 16.9 mmol/L (22.0-26.0) *L Arterial Blood Oxygen Saturation 81.4 % (95-100) *L Arterial Blood Base Excess -8.2 (-2-2) L Gunnar Test Positive Current Medications Medications (Trade) Dose Ordered Sig/Vicki Route PRN Reason Start Time Stop Time Status Last Admin Dose Admin Acetaminophen (Tylenol) 650 mg Q4H PRN ORAL Mild Pain (Pain Scale 1-3) 06/07/20 15:15 07/07/20 15:14 Acetaminophen (Tylenol) 650 mg Q4H PRN ORAL Temp >100.5 06/07/20 15:15 07/07/20 15:14 Albuterol/ Ipratropium (Combivent Respimat) 1 puff Q6H PRN INH Shortness of Breath 06/08/20 18:30 07/08/20 18:29 Amlodipine Besylate (Norvasc) 5 mg DAILY ORAL 06/08/20 09:00 07/08/20 08:59 06/11/20 07:56 Atorvastatin Calcium (Lipitor) 40 mg BEDTIME ORAL 06/07/20 21:00 09/05/20 20:59 06/11/20 21:00 Azithromycin 250 mg/Sodium Chloride 275 ml @ 275 mls/hr DAILY IV 06/08/20 09:00 06/12/20 15:15 06/11/20 09:42 Calcium Carbonate (Os-Javier) 500 mg BID ORAL 06/07/20 20:00 09/05/20 19:59 06/11/20 17:48 Cefepime HCl 2 gm/ Dextrose 110 ml @ 220 mls/hr Q24H IV 06/08/20 11:00 06/15/20 10:59 06/11/20 12:04 Dexamethasone Sodium Phosphate (Decadron 10mg/ ml Inj) 6 mg DAILY IV 06/08/20 09:00 06/16/20 09:00 06/11/20 07:53 Dextrose (Dextrose 50%) 25 ml Q30M PRN IV Hypoglycemia 06/08/20 12:30 09/06/20 12:29 Dextrose (Dextrose 50%) 50 ml Q30M PRN IV Hypoglycemia 06/08/20 12:30 09/06/20 12:29 Docusate Sodium (Colace) 100 mg EVERY 12 HOURS ORAL 06/07/20 21:00 07/07/20 20:59 06/11/20 21:00 Enoxaparin Sodium (Lovenox) 40 mg DAILY SUBQ 06/12/20 09:00 09/10/20 08:59 Insulin Aspart (NovoLOG) BEFORE MEALS AND HS SUBQ 06/08/20 16:30 09/06/20 16:29 06/12/20 06:04 Lorazepam (Ativan 2mg/ml 1ml) 0.5 mg Q4H PRN IV For Anxiety 06/07/20 15:15 06/14/20 15:14 06/12/20 06:15 Morphine Sulfate (Morphine Sulfate) 2 mg Q4H PRN IVP Moderate Pain (Pain Scale 4-6) 06/07/20 15:15 06/14/20 15:14 06/12/20 00:25 Ondansetron HCl (Zofran) 4 mg Q6H PRN IVP Nausea & Vomiting 06/07/20 15:15 07/07/20 15:14 06/10/20 17:13 Pantoprazole (Protonix) 40 mg EVERY 12 HOURS IVP 06/07/20 21:00 07/07/20 20:59 06/11/20 21:00 Polyethylene Glycol (Miralax) 17 gm DAILYPRN PRN ORAL Constipation 06/07/20 15:15 07/07/20 15:14 Remdesivir 100 mg/ Sodium Chloride 250 ml @ 250 mls/hr Q24H IV 06/10/20 16:00 06/13/20 16:59 06/11/20 17:48 Sodium Chloride 1,000 ml @ 75 mls/hr [id number] IV 06/07/20 15:00 07/07/20 14:59 06/12/20 01:59 Temazepam (Restoril) 15 mg HSPRN PRN ORAL Insomnia 06/07/20 15:15 06/14/20 15:14 Nicolasa Del Cid M.D. Jun 12, 2020 09:08
[2020-06-12] MEDS ORDERED: EPINEPHrine 1 MG in D5W 250ml IV SCH (09:22)
[2020-06-12] MEDS ORDERED: Norepinephrine Bitartrate 4 MG in NS 250 ML IV SCH (09:24)
[2020-06-12] MEDS ORDERED: Levophed 4mg/4mL Inj IV ONE (09:26)
--- NOTE | 2020-06-12 09:40 | NUR ---
NURSE NOTES: Sinus tita to asystole, unable to feel pulse. Code Blue was called and CPR started per ACLS protocol. ER MD and Dr Yuen both present. Unable to achieve ROSC; please see code sheet for meds given during code. CPR was stopped and pt pronounced by ER at bedside at 0954. Charge nurse, nurse spvsr present and aware. Dr Yuen on the phone with pt's family and updated on turn of events and expiration of pt.
[2020-06-12] MEDS ORDERED: DOPamine 400mg/250ml 250 ML IV SCH (09:45)
--- NOTE | 2020-06-12 10:00 | NUR ---
NURSE NOTES: [facility] offices were contacted by charge nurse, Becca GUADALUPE.
--- NOTE | 2020-06-12 10:20 | Discharge Summary ---
Discharge Summary Hospital Course Date of Admission Jun 07, 2020 at 14:10 Date of Discharge 06/12/2020 Admitting Diagnosis RESPIRATORY DISTRESS COVID+ HPI Devi Ratliff is a 79 year old female who was admitted on Jun 07, 2020 at 14:10 for Respiratory Distress Covid + Procedures code blue 06/12/20 R Femoral central line Intubation Hospital Course 79-year-old female past medical history of diabetes, hypertension and recent diagnosis of COVID-19 1 week ago admitted to the Hospital with: # Acute hypoxemic respiratory failure due to Co -SARS 2 ( Covid 19 ) pneumonia Respiratory support with Bipap ICU admission due to high risk of decompensation Pulmonary consultation requested with Dr. Nolasco. Continue supportive care. ABG 7.10/30/57. O2 sat 92 % Heparin gtt as D dimer elevated on admission. Covid 19 protocol. was given from admission ID consultation with Dr. Del Cid for Remdisivir appreciated. Therapies included: remdesivir #4/5 (started late given KEVIN on admission), dexamethasone 6mg daily #6/10, empiric cefepime and Azithromycin #5/5 No access to convalescent plasma at [facility] and data showed no survival benefit. HHN prn 06/12/20 ABG noted with 7/3/33.6/48.4/81 % and elective intubation was being pl anned when the patient was noted to have a cardiac arrest and lost of pulses. YARELY MARTINEZ called at 9:41 am and ER physician assisted with intubation, CPR, ACLS protocol, Atropine x 1, Epi x 3, Bicarb x 1 with returned of Sinus tachycardia and hypotension 66/35 noted. Dopamine gtt and levophed gtt at 30 mcg/min started Family was updated by wa [phone] ( Ines - daughter and patient ) CODE JUAN ( second ) 9:41 am PEA arrest. ACLS started Epi x 4 Bicarb x 2 No pulse was obtained after all efforts were exhausted. Time of 9:17 am Family was called and updated about patient outcome and . Support was provided over the phone in their [place] language. RN updated and follow up arrangements with mortuary and morgue. Other medica problems treated were HTN KEVIN with improvement in renal function HLD T2DM Discharge Discharge Vital Signs Last Vital Signs Date Time Temp Pulse Resp B/P (MAP) Pulse Ox O2 Delivery O2 Flow Rate FiO2 06/12/20 09:31 45 22 89 Mechanical Ventilator 60.0 100 06/12/20 06:45 102/45 06/12/20 04:00 98.2 Discharge Disposition Patient was discharged to [facility] [place] Discharge Diagnoses: (1) Cardiac arrest (2) COVID-19 (3) Acute respiratory disease due to COVID-19 virus Kavon Yuen MD Jun 12, 2020 10:20
--- NOTE | 2020-06-12 11:00 | NUR ---
NURSE NOTES: Post mortem care was done. Pt's belongings at pt's bedside at this time; all labeled. Awaiting to transfer body to [facility].
--- NOTE | 2020-06-12 11:11 | NUR ---
RADIOLOGY DEPT., CHEST X-RAY DONE.-P.DYE
[2020-06-12 11:43] LABS: PHOSPHORUS 3.2 MG/DL (2.5-4.9)
--- NOTE | 2020-06-12 14:06 | Diagnostic Imaging Report ---
Indication: Reason For Exam: SOB Technique: Single AP view of the chest. Comparison: Chest radiograph Dated 06/08/2020 Findings: The cardiomediastinal silhouette is unchanged in appearance. Interval worsening aeration of the lungs, with development of bilateral upper lobe and left midlung and lower lobe consolidation. There is volume loss in the right lung with increased elevation of the right hemidiaphragm. No pneumothorax. No increasing pleural effusion. IMPRESSION: Little worsening in aeration of the lungs with increasing bilateral airspace consolidation.
--- NOTE | 2020-06-12 15:03 | Emergency Room Report ---
History of Present Illness General Chief Complaint: Dyspnea/Respdistress Source: Medical Record Present Illness Allergies: Coded Allergies: No Known Allergies (Unverified , 06/07/20) COVID-19 Screening Contact w/high risk pt: Yes Experienced COVID-19 symptoms?: Yes COVID-19 Testing performed ROPE WALKER: No COVID-19 Screening: Positive COVID-19 Patient History Now: No Nursing Documentation-PM Past Medical History: No History, Except For Hx Hypertension: Yes Hx Diabetes: Yes Physical Exam Vital Signs Date Time Temp Pulse Resp B/P (MAP) Pulse Ox O2 Delivery O2 Flow Rate FiO2 06/08/20 07:00 93 34 131/76 (94) 98 06/08/20 07:12 100 06/08/20 08:00 Bi-pap 06/08/20 09:00 97.6 06/10/20 09:52 15.0 Procedures Central Line Central Line : Consent: Emergent Central Line Lumen: triple Maximal Sterile Barrier Tech: yes cap, yes mask, yes sterile gloves No Max Barrier Tech Because: emergency insertion Central Line Postion: femoral (R) US Guided Line?: No Vessel visualized with U/S: Right Femoral Vein Complications: none Attempts: One Patient Tolerated: Well Complications: None Intubation Intubation : Consent: Emergent Tube Size (cm): 7.5 Breath Sounds after Intubation: equal Intubation Complications: no complications Post Intubation Xray: Yes Attempts: One Patient Tolerated: Well Complications: None Medical Decision Making Diagnostic Impression: Primary Impression: Acute respiratory disease due to COVID-19 virus Additional Impressions: Renal failure Pneumonia Hyperkalemia Hypocalcemia ER Course Total critical care time: Approximately 60 minutes Due to a high probability of clinically significant, life threatening deteri oration, the patient required the highest level of preparedness to intervene emergently and I personally spent this critical care time directly and personally managing the patient. This critical care time included obtaining a history, examining the patient, pulse oximetry, ordering and reviewing studies, ordering treatments, evaluating response to treatment and updating management plan as needed, frequent reassessment and discussion with other providers as well as arranging for ultimate disposition. This critical to care time was performed to assess and manage the high probability of life-threatening deterioration that could result in multiorgan failure. This critical care time is separate from the separately billable procedures and treating other patients. 79-year-old female in cardiac arrest. I was called to the ICU where CPR was already in progress. When I arrived patient was in asystole and received multiple doses of epinephrine. She was given 2 doses of sodium bicarb. Please see separate code sheet. 1 pulse check the patient was in V. fib and received defibrillation with 200 J. ROSC was achieved. Patient was intubated as described above. She was hypotensive immediately after the return of spontaneous circulation and an emergent right femoral central line was placed. Patient was started on Levophed, dopamine, epinephrine drips. Despite this the patient went to cardiac arrest once again. Multiple rounds of CPR with ACLS protocol were performed but despite this the patient was pronounced at 1 0:44 AM. Last Vital Signs Date Time Temp Pulse Resp B/P (MAP) Pulse Ox O2 Delivery O2 Flow Rate FiO2 06/12/20 09:31 45 22 89 Mechanical Ventilator 60.0 100 06/12/20 09:00 49/22 (31) 06/12/20 08:00 98.0 Disposition: ADMITTED INPATIENT Condition: Critical Referrals: [facility]ERR[facility] (PCP) Additional Instructions: Please note that this report is being documented using [employer] technology. This can lead to erroneous entry secondary to incorrect interpretation by the dictating instrument. Miguel Reynolds M.D. Jun 12, 2020 15:03
--- NOTE | 2020-06-12 16:00 | NUR ---
NURSE NOTES: Pt's son-in-law arrived to roll picker all of pt's belongings; belonging's list was signed by the family; and list handed to covering and lining supervisor. Body is now at the [facility].
--- NOTE | 2020-06-13 10:39 | NUR ---
INSURANCE DC SUMMARY FAXED TO [facility] T: [phone] [id number] F: [phone]
== END 2020-06-12 09:44 | disposition expired | DRG 137 ==
LOC: EDBD 12:47 → EMR 13:07 → ICU 14:10 → EDBEDREQSVC 14:19 → EDBEDREQ 14:19
PROC: 5A09557 Assistance with Respiratory Ventilation, Greater than 96 Consecutive Hours, Continuous Positive Airway Pressure (ICD-10-PCS; principal; 2020-06-07)
PROC: 06HM33Z Insertion of Infusion Device into Right Femoral Vein, Percutaneous Approach (ICD-10-PCS; 2020-06-12)
PROC: 5A12012 Performance of Cardiac Output, Single, Manual (ICD-10-PCS; 2020-06-12)
PROC: 0BH17EZ Insertion of Endotracheal Airway into Trachea, Via Natural or Artificial Opening (ICD-10-PCS; 2020-06-12)
DX: U07.1 COVID-19 (principal); J12.89 Other viral pneumonia; J96.01 Acute respiratory failure with hypoxia; E44.0 Moderate protein-calorie malnutrition; N17.9 Acute kidney failure, unspecified; N18.30 Chronic kidney disease, stage 3 unspecified; E87.6 Hypokalemia; E87.1 Hypo-osmolality and hyponatremia; E11.65 Type 2 diabetes mellitus with hyperglycemia; E83.52 Hypercalcemia; I13.10 Hypertensive heart and chronic kidney disease without heart failure, with stage 1 through stage 4 chronic kidney disease, or unspecified chronic kidney disease; E11.22 Type 2 diabetes mellitus with diabetic chronic kidney disease; Z79.84 Long term (current) use of oral hypoglycemic drugs
CPT/HCPCS: 36415; 71045; 80053; 80061; 81003; 82248; 82533; 82550; 82728; 82803; 82962; 82977; 83036; 83605; 83615; 83735; 83880; 84100; 84300; 84443; 84484; 84550; 85007; 85025; 85379; 85610; 85730; 86140; 86710; 87040; 92950; 93970; 94002; 94640; 94660; 94664; 96365; 96367; 96375; 99291; J1815; J2405; J3490; J7030; J7620; U0002